=== PATIENT | female | born 1935 | race Caucasian/White ===

== ENCOUNTER 2022-06-14 09:38 | Emergency (ER) | payer MEDICARE, SELFPAY ==
--- NOTE | ~2022-06-14 | XR_ITS ---
XR hip RT min 2V DATE: 06/14/2022 10:50 INDICATION: Right hip pain following a fall yesterday TECHNIQUE: AP, lateral and crosstable lateral views of right hip COMPARISON: None FINDINGS: There is degenerative spurring of the femoral head consistent with moderate osteoarthritis. No fracture or dislocation, avascular necrosis or bone destruction is detected. Levoscoliosis and multilevel degenerative disc disease of the lumbar spine. IMPRESSION: Moderate osteoarthritis of right hip joint No fracture or dislocation of the right hip is detected Reviewed, dictated and finalized at location A. [employer]
[2022-06-14 10:09] VITALS: BP 106/58; PULSE 70; RESP 16; TEMP 36.4; O2SAT 98
--- NOTE | 2022-06-14 11:20 | ED.LOWEXIN ---
HPI - Extremity Injury (Lower) General Chief Complaint: Extremity Injury, Lower Stated Complaint: right hip pain Time Seen by Provider: 06/14/22 09:40 Source: patient Mode of arrival: ambulatory Limitations: no limitations History of Present Illness HPI Narrative: 86-year-old female presents to [facility] complaints of pain to her right hip after falling in her home last night; patient reports that she fell against a wall and hit her right hip against the wall and then slid down the wall falling on carpeted [place]. Patient denies hitting her head or loss of consciousness. Patient denies headache, dizziness, blurred vision, nausea, vomiting or diarrhea. Patient reports long history of frequent falls and her primary care provider is aware. Patient denies swelling, open wounds, erythema, MD complaint: hip injury Onset (ago): hour(s) (8) Injury: Right: hip Place: home Context: fall Other symptoms: none Related Data Home Medications Medication Instructions Recorded Confirmed amlodipine 10 mg tablet 10 mg PO DAILY 06/14/22 06/14/22 aspirin 81 mg tablet,delayed 81 mg PO DAILY 06/14/22 06/14/22 release citalopram 20 mg tablet 20 mg PO DAILY 06/14/22 06/14/22 enalapril maleate 20 mg tablet 20 mg PO DAILY 06/14/22 06/14/22 glipizide 5 mg tablet, extended 5 mg PO DAILY 06/14/22 06/14/22 release 24 hr insulin detemir U-100 100 unit/mL 20 unit subcut DAILY 06/14/22 06/14/22 subcutaneous solution (Levemir U-100 Insulin) metformin 1,000 mg tablet 1,000 mg PO DAILY 06/14/22 06/14/22 metoprolol succinate 50 mg 50 mg PO DAILY 06/14/22 06/14/22 tablet,extended release 24 hr omeprazole 40 mg capsule,delayed 40 mg PO DAILY 06/14/22 06/14/22 release pravastatin 40 mg tablet 40 mg PO DAILY 06/14/22 06/14/22 Allergies Allergy/AdvReac Type Severity Reaction Status Date / Time Penicillins Allergy Intermediate RASH Verified 06/14/22 11:14 Review of Systems Constitutional: Constitutional: Denies chills, Denies fatigue, Denies fever(s) and Denies weakness ENT: Denies vertigo and Denies dizziness Cardiovascular: Cardiovascular: Denies chest pain Respiratory: Respiratory: Denies cough, Denies dyspnea and Denies wheezing Gastrointestinal: Gastrointestinal: Denies diarrhea, Denies nausea and Denies vomiting Musculoskeletal: Comments: right hip pain Integumentary/Breasts: Skin/Breast: Denies rash Neurologic: Denies dizziness and Denies syncope PMFSH Comments At time of signature, I agree with nursing past medical, surgical, social and family history. There is no relevant family history pertinent to the presenting complaint. Exam Const: General: healthy appearing and no acute distress Nutritional Appearance: well nourished Orientation/consciousness: patient oriented x3 Limitations: no limitations Neck: Neck: normal visual inspection Resp: Effort & Inspection: normal respiratory effort and not labored Auscultation: clear to auscultation bilaterally, no crackles, no rales and no rhonchi Cardio: Rate: regular rate Rhythm: regular rhythm Heart sounds: no murmurs Skin: General skin exam: normal color Rashes: no rashes Wounds: no wounds Neuro: General: patient oriented x3 Speech: normal speech Gait exam (Neuro): Normal gait present Extrem: General: normal to inspection, no clubbing, cyanosis or edema and no pedal edema Other: no bruising, erythema or open wounds noted to right hip. Full range of motion noted to right hip. There is mild pain to right hip with constipation. Psych: Affect: normal affect Attitude: cooperative Course Course Level of Care: [facility] Visit Vital Signs Vital signs: Vital Signs Temperature 36.4 C L 06/14/22 10:09 Pulse Rate 70 06/14/22 10:09 Respiratory Rate 16 06/14/22 10:09 Blood Pressure 106/58 L 06/14/22 10:09 Pulse Oximetry 98 06/14/22 10:09 Oxygen Delivery Room Air 06/14/22 10:09 Temperature 36.4 C L 06/14/22 10:09 Pulse Rat
== END 2022-06-14 11:35 | disposition home or self-care (01) ==
PROVIDERS: Emergency Provider Nurse Practitioner Family
DX: M25.551 Pain in right hip (principal); Z79.82 Long term (current) use of aspirin; M16.11 Unilateral primary osteoarthritis, right hip; E78.00 Pure hypercholesterolemia, unspecified; I10 Essential (primary) hypertension; E11.9 Type 2 diabetes mellitus without complications; F41.9 Anxiety disorder, unspecified; F32.A Depression, unspecified
CPT/HCPCS: 73502; 99213; G0463

== ENCOUNTER 2022-11-28 09:29 | Emergency (ER) | payer MEDICARE, SELFPAY ==
[2022-11-28 09:44] VITALS: BP 103/58; PULSE 104; RESP 16; TEMP 37.3; O2SAT 98
--- NOTE | 2022-11-28 09:51 | ED.GENADULT ---
HPI - General Adult General Chief complaint: Headache Stated complaint: head pain Time Seen by Provider: 11/28/22 09:51 Source: patient Mode of arrival: ambulatory Limitations: no limitations History of Present Illness HPI narrative: 87-year-old female presents with complaint right-sided sinus pain for 1 week. Not taking any [id number] medications to treat her symptoms. Reports that pain is worse at night. States that she lives at home alone with no one to help her and was unsure what she should take. Afebrile. All systems reviewed and negative except as noted above. Related Data Home Medications Medication Instructions Recorded Confirmed amlodipine 10 mg tablet 10 mg PO DAILY 06/14/22 11/28/22 aspirin 81 mg tablet,delayed 81 mg PO DAILY 06/14/22 11/28/22 release citalopram 20 mg tablet 20 mg PO DAILY 06/14/22 11/28/22 enalapril maleate 20 mg tablet 20 mg PO DAILY 06/14/22 11/28/22 glipizide 5 mg tablet, extended 5 mg PO DAILY 06/14/22 11/28/22 release 24 hr insulin detemir U-100 100 unit/mL 20 unit subcut DAILY 06/14/22 11/28/22 subcutaneous solution (Levemir U-100 Insulin) metformin 1,000 mg tablet 1,000 mg PO DAILY 06/14/22 11/28/22 metoprolol succinate 50 mg 50 mg PO DAILY 06/14/22 11/28/22 tablet,extended release 24 hr omeprazole 40 mg capsule,delayed 40 mg PO DAILY 06/14/22 11/28/22 release pravastatin 40 mg tablet 40 mg PO DAILY 06/14/22 11/28/22 Allergies Allergy/AdvReac Type Severity Reaction Status Date / Time Penicillins Allergy Intermediate RASH Verified 11/28/22 09:45 Review of Systems Review of Systems: CONSTITUTIONAL: Denies fever, chills, or sweats. EYES: Denies visual changes, redness, or discharge. ENT: Reports rhinorrhea, congestion, sinus pain. Denies sore throat, or otalgia. CARDIOVASCULAR: Denies chest pain, palpitations, or edema. RESPIRATORY: Denies cough or dyspnea. GASTROINTESTINAL: Denies abdominal pain, nausea, vomiting, or diarrhea. GENITOURINARY: Denies dysuria or hematuria. SKIN: Denies rash or itching. MUSCULOSKELETAL: Denies back pain, joint pain, or myalgia. NEUROLOGIC: reports headache. Denies numbness, or weakness. PSYCHIATRIC: Denies anxiety or depression. All other systems reviewed are negative, except as documented in HPI. PMFSH Comments At time of signature, agree with nursing past medical, surgical, social and family history. There is no relevant family history pertinent to the presenting complaint. Exam Narrative: GENERAL: This is a well-nourished, well-developed patient, in no apparent distress. HEAD: normocephalic, atraumatic. EYES: PERRL. Sclera clear/white. Vision is grossly intact. EARS: External ears normal, right ear canal normal. foreign body to left ear canal. TMs normal without perforation. NOSE: External nose normal with Clear nasal drainage, erythema and swelling to both nares. Right-sided maxillary sinus tenderness. THROAT: Mucous membranes moist, Postnasal drainage noted. NECK: Neck supple, non-tender without lymphadenopathy, masses or thyromegaly. CARDIOVASCULAR: Regular rate and rhythm without murmurs, gallops, or rubs. RESPIRATORY: Clear to auscultation. Breath sounds equal bilaterally. No wheezes, rales, or rhonchi. SKIN: warm, Dry, intact with no suspicious lesions or rash, good texture and turgor. NEURO: awake, alert, and oriented to person, place and time. There were no obvious focal neurologic abnormalities. EXTREMITIES: No joint tenderness, effusion, or edema noted. Course Course Level of Care: [facility] Care Visit Vital Signs Vital signs: Vital Signs Temperature 37.3 C 11/28/22 09:44 Pulse Rate 104 H 11/28/22 09:44 Respiratory Rate 16 11/28/22 09:44 Blood Pressure 103/58 L 11/28/22 09:44 Pulse Oximetry 98 11/28/22 09:44 Oxygen Delivery Room Air 11/28/22 09:44 Temperature 37.3 C 11/28/22 09:44 Pulse Rate 104 H 11/28/22 09:44 Respiratory Rate 16 07/
== END 2022-11-28 10:12 | disposition home or self-care (01) ==
PROVIDERS: Emergency Provider Nurse Practitioner Family
DX: T16.2XXA Foreign body in left ear, initial encounter (principal); J32.0 Chronic maxillary sinusitis; Z79.82 Long term (current) use of aspirin; E78.00 Pure hypercholesterolemia, unspecified; I10 Essential (primary) hypertension; M19.90 Unspecified osteoarthritis, unspecified site; E11.9 Type 2 diabetes mellitus without complications; Z79.4 Long term (current) use of insulin; Z79.84 Long term (current) use of oral hypoglycemic drugs; F41.9 Anxiety disorder, unspecified; F32.A Depression, unspecified
CPT/HCPCS: 69200; 99213; G0463

== ENCOUNTER 2022-12-06 08:34 | Emergency (ER) | payer MEDICARE, SELFPAY ==
[2022-12-06 08:57] VITALS: BP 95/47; PULSE 81; RESP 12; TEMP 37.6; O2SAT 100
--- NOTE | 2022-12-06 09:15 | ED.URI ---
HPI - URI/Sore Throat General Chief Complaint: Upper Respiratory Infection Stated Complaint: Sinus Time Seen by Provider: 12/06/22 08:38 Source: patient Mode of arrival: ambulatory Limitations: no limitations History of Present Illness HPI Narrative: 87-year-old female presents to [facility] with complaints of 2 week history of right-sided sinus pressure, nasal congestion and runny nose. Patient was evaluated here on November 28, diagnosed with a sinus infection and was treated with 7 days of doxycycline, Medrol Dosepak, Claritin and Flonase at that time. Patient reports that she does not have a primary care provider to follow up with. Patient reports that her symptoms slightly improved but she continues with a right-sided sinus pain. Patient denies headache, fevers, nausea, vomiting or diarrhea. MD elicited complaint: rhinorrhea, nasal congestion and sinus pain Onset (ago): week(s) (2) Able to tolerate fluids by mouth: Yes Exacerbating factors: nothing Treatments prior to arrival: antibiotics Related Data Home Medications Medication Instructions Recorded Confirmed amlodipine 10 mg tablet 10 mg PO DAILY 06/14/22 11/28/22 aspirin 81 mg tablet,delayed 81 mg PO DAILY 06/14/22 11/28/22 release citalopram 20 mg tablet 20 mg PO DAILY 06/14/22 11/28/22 enalapril maleate 20 mg tablet 20 mg PO DAILY 06/14/22 11/28/22 glipizide 5 mg tablet, extended 5 mg PO DAILY 06/14/22 11/28/22 release 24 hr insulin detemir U-100 100 unit/mL 20 unit subcut DAILY 06/14/22 11/28/22 subcutaneous solution (Levemir U-100 Insulin) metformin 1,000 mg tablet 1,000 mg PO DAILY 06/14/22 11/28/22 metoprolol succinate 50 mg 50 mg PO DAILY 06/14/22 11/28/22 tablet,extended release 24 hr omeprazole 40 mg capsule,delayed 40 mg PO DAILY 06/14/22 11/28/22 release pravastatin 40 mg tablet 40 mg PO DAILY 06/14/22 11/28/22 Allergies Allergy/AdvReac Type Severity Reaction Status Date / Time Penicillins Allergy Intermediate RASH Verified 12/06/22 09:00 Review of Systems Constitutional: Constitutional: Denies chills, Denies fatigue, Denies fever(s) and Denies weakness ENT: Denies vertigo, Denies dizziness, Denies epistaxis, Reports nasal congestion and Denies sore throat Comments: Right-sided sinus pressure Respiratory: Respiratory: Denies cough, Denies dyspnea and Denies wheezing Gastrointestinal: Gastrointestinal: Denies diarrhea, Denies nausea and Denies vomiting Integumentary/Breasts: Skin/Breast: Denies rash Neurologic: Denies syncope and Denies headache(s) [facility] Comments At time of signature, I agree with nursing past medical, surgical, social and family history. There is no relevant family history pertinent to the presenting complaint. Exam Const: General: healthy appearing Nutritional Appearance: thin Orientation/consciousness: patient oriented x3 Limitations: no limitations HENMT: Head: normal to inspection Ears: external ears normal and TM's normal bilaterally Face and sinus: sinus tenderness maxillary ( right-sided) Mouth: Yes Normal oral and palatal mucosa present and Yes moist mucous membranes Teeth and gingiva: dentition normal Throat: posterior oropharynx normal and uvula midline Other: mild right-sided nasal congestion noted Eyes: Conjunctivae: conjunctivae normal Neck: Neck: normal visual inspection Resp: Effort & Inspection: normal respiratory effort and not labored Auscultation: clear to auscultation bilaterally, no crackles, no rales and no rhonchi Cardio: Rate: regular rate Rhythm: regular rhythm Heart sounds: no murmurs Skin: General skin exam: normal color Rashes: no rashes Neuro: General: patient oriented x3 Speech: normal speech Psych: Affect: normal affect Attitude: cooperative Course Course Level of Care: [facility] Care Visit Vital Signs Vital signs: Vital Signs Temperature 37.6 C 12/06/22 08:57 Pulse Rate 81 12/06/22 08:57 Respiratory Rate 12 12/06/22
[2022-12-06 09:24] VITALS: BP 112/64
== END 2022-12-06 09:45 | disposition home or self-care (01) ==
PROVIDERS: Emergency Provider Nurse Practitioner Family; PCP Internal Medicine
DX: J32.9 Chronic sinusitis, unspecified (principal); E78.00 Pure hypercholesterolemia, unspecified; M19.90 Unspecified osteoarthritis, unspecified site; E11.9 Type 2 diabetes mellitus without complications
CPT/HCPCS: 99213; G0463

== ENCOUNTER 2024-02-06 17:37 | Emergency (ER) | payer MEDICARE, SELFPAY ==
[2024-02-06 17:56] VITALS: BP 126/78; PULSE 80; RESP 16; TEMP 37.7; O2SAT 98
--- NOTE | 2024-02-06 18:06 | ED.EYEPROB ---
HPI - Eye Problem General Chief complaint: Eye Problems Stated complaint: right eye blurry Time Seen by Provider: 02/06/24 18:06 Source: patient, RN notes reviewed and old records reviewed Mode of arrival: ambulatory Limitations: no limitations History of Present Illness HPI Narrative: 88-year-old female presents to the [facility] with blurry vision and partial loss of vision of the right eye. States she went to bed last night and was fine. Tried driving this morning to go get [employer] and noticed that she was seeing double Patient has a history of cataract removal ?years ago. ? Onset (ago): hour(s) Related Data Allergies Allergy/AdvReac Type Severity Reaction Status Date / Time Penicillins Allergy Intermediate RASH Verified 02/06/24 17:41 Review of Systems Review of Systems: All systems reviewed & are unremarkable except as noted in HPI and below Constitutional: Constitutional: Reports no additional constitutional complaints Eyes: Eyes: Reports as per HPI, Reports blind spots, Reports blurry vision and Reports change in vision ENT: Reports system reviewed and no additional complaints, except as documented Cardiovascular: Cardiovascular: Reports no additional cardiovascular complaints, Denies chest pain and Denies dyspnea Respiratory: Respiratory: Reports no additional respiratory complaints, Denies chest congestion, Denies cough and Denies dyspnea Gastrointestinal: Gastrointestinal: Reports no additional gastrointestinal complaints, Denies abdominal pain, Denies nausea and Denies vomiting Musculoskeletal: Musculoskeletal: Reports no additional musculoskeletal complaints Integumentary/Breasts: Skin/Breast: Reports system reviewed and no additional complaints, except as docu Neurologic: Reports system reviewed and no additional complaints, except as documented Psychiatric: Psychiatric: Reports no additional psychiatric complaints Allergic/Immunologic: Allergic/Immunologic: Reports no additional allergic/immunologic complaints [facility] Past Medical History Medical History (Updated 02/06/24 @ 19:02 by Eva Walsh APRN) Depression DM2 (diabetes mellitus, type 2) HTN (hypertension) Hyperlipidemia Social History Social History Smoking status: Unknown if ever smoked Second hand tobacco smoke exposure: No Alcohol intake: never Substance use: never Lack of Transportation: YES Lack of Food: Sometimes True Current Housing: I Have Housing Concerned About Future Housing: No Difficulty Paying Gas/Electric Bills: YES Difficulty Paying for Meds: YES Currently Unemployed: No Education: Decline to Answer Difficulty w/ Childcare or Family Care: No Living arrangements: alone Occupation/Education: retired Gender identity (if verbalized by the patient): Female Comments At the time of my signature, I reviewed and agree with the nursing past medical, surgical, social, and family history. There is no relevant family history pertinent to the patient complaint. Exam Const: General: cooperative, no acute distress, well developed, alert, uncomfortable, well groomed and well nourished Nutritional Appearance: well nourished Orientation/consciousness: patient oriented x3 Limitations: no limitations HENMT: Head: normal to inspection Ears: hearing grossly normal bilaterally and external ears normal Face/Nose/Sinus: Normal external nose present, Normal nares present, Normal nasal mucous membranes and turbinates present, normal facial exam and face symmetric Face and sinus: normal facial exam and face symmetric Mouth: Yes lip normal Eyes: General: appearance normal, both eyes and all related structures Visual Levin: abnormal by confrontation other (Seeing double of everything) Alignment and Position: alignment normal Periorbital: periorbital findings normal Eyelids: eyelids normal Conjunctivae: conjunctivae normal Pupils: Other p
== END 2024-02-06 18:24 | disposition short-term general hospital (02) ==
LOC: EXPCOLL 17:43
PROVIDERS: Emergency Provider Nurse Practitioner
DX: H53.9 Unspecified visual disturbance (principal); E11.9 Type 2 diabetes mellitus without complications; I10 Essential (primary) hypertension; E78.5 Hyperlipidemia, unspecified
CPT/HCPCS: 99212; G0463

== ENCOUNTER 2024-05-19 08:08 | Outpatient (CLI) | payer MEDICARE, SELFPAY ==
--- NOTE | ~2024-05-19 | US_ITS ---
EXAMINATION: US carotid duplex BI DATE: 05/19/2024 08:50 INDICATION: Carotid bruit TECHNIQUE: Grayscale, color Doppler, and pulsed Doppler images of the cervical carotid arteries were obtained. The degree of vessel stenosis is placed in one of the following categories: normal, <50%, 5 0-69%, >=70% but less than near-occlusion, near-occlusion, or total occlusion. Note that percent sten osis relative to normal distal artery lumen diameter is indirectly measured from velocity measurement s as described by David, et al. Radiology 2003; [id number]. Notes: Normal: Peak systolic velocity <125 centimeters/sec and no plaque <50%. Peak systolic velocity <125 ( EDV <40; ICA/CCA PSV ratio <2.0; used these factors only a tandem lesions or low cardiac output or co ntralateral disease) 50-69 %: PSV 125-230 (EDV 40-100; ratio 2-4) >= 70% but less than near occlusion: PSV greater than 230 (EDV > 100; ratio> 4.0) Near Occlusion: PSV that is variable; markedly narrowed lumen Occlusion: Absent flow on color/spectral Doppler and no lumen on hollis scale. COMPARISON: None. FINDINGS: RIGHT: The right common carotid artery (CCA) peak systolic velocity (PSV) is 86 cm/s. The right internal car otid artery (ICA) PSV is 88 cm/s. The right ICA end-diastolic velocity (EDV) is 27 cm/s. The right IC A/CCA PSV ratio is 1.1. The external carotid artery (ECA) PSV is 77 cm/s. There is antegrade flow in the right vertebral artery. LEFT: The left CCA PSV is 80 cm/s. The left ICA PSV is 52 cm/s. The left ICA EDV is 16 cm/s. The left ICA/C CA PSV ratio is 0.8. The ECA PSV is 81 cm/s. There is antegrade flow in the left vertebral artery. IMPRESSION: 1. Less than 50% stenosis in the right internal carotid artery by sonographic criteria. 2. Less than 50% stenosis in the left internal carotid artery by sonographic criteria. Reviewed, dictated and finalized at location B. BULATORY NURSE IMPRESSION: 1. Less than 50% stenosis in the right internal carotid artery by sonographic monique nova. 2. Less than 50% stenosis in the left internal carotid artery by sonographic malik muñoz.
== END 2024-05-19 08:09 | disposition home or self-care (01) ==
PROVIDERS: PCP Nurse Practitioner Family; Visit Provider Nurse Practitioner Family
DX: R09.89 Other specified symptoms and signs involving the circulatory and respiratory systems (principal); I65.23 Occlusion and stenosis of bilateral carotid arteries
CPT/HCPCS: 93880

== ENCOUNTER 2024-09-25 10:02 | Outpatient (CLI) | payer MEDICARE, SELFPAY ==
[2024-09-25 10:42] LABS: Basophils Percent Auto 0.6 % (0.2-1.2); Eosinophils Absolute Auto 0.2 K/mm3 (0-0.3); Eosinophils Percent Auto 2.4 % (0-4.4); Hematocrit 31.1 % (37.0-47.0); Hemoglobin 9.6 g/dL (12.0-15.0); Immature Granulocyte Absolute 0.02 K/mm3 (0.00-0.031); Immature Granulocyte Percent A 0.3 % (0-0.5); Lymphocytes Absolute Auto 1.76 K/mm3 (0.9-3.2); Mean Corpuscular HGB Conc 30.9 g/dl (32-36); Mean Corpuscular Volume 87.6 fl (80-100); Mean Platelet Volume 9.7 fl (7.4-10.4); Monocytes Absolute Auto 0.5 K/mm3 (0.1-0.6); Monocytes Percent Auto 7.2 % (2.6-8.5); Neutrophils Absolute Auto 3.9 K/mm3 (1.3-6.7); Neutrophils Percent Auto 61.5 % (45.5-73.1); Platelet Count Result 338 k/mm3 (150-375); Red Blood Count 3.55 M/mm3 (4.2-5.4); Red Cell Distribution Width 15.3 % (11.5-14.5); White Blood Count 6.3 K/mm3 (4.5-10.0)
[2024-09-25 10:56] LABS: Hemoglobin A1C 6.7 % (<5.7)
[2024-09-25 11:01] LABS: Alanine Aminotransferase 15 U/L (6-35); Albumin Level 4.1 g/dL (3.5-5.1); Alkaline Phosphatase 68 U/L (38-126); Anion Gap 9 mmol/L (4-12); Aspartate Amino Transferase 25 U/L (14-36); Bilirubin,Total 0.4 mg/dL (0.2-1.3); Blood Urea Nitrogen 14 mg/dL (7-17); Calcium 9.6 mg/dL (8.4-10.2); Carbon Dioxide 24 mmol/L (22-30); Chloride 108 mmol/L (98-107); Cholesterol 188 mg/dL (0-200); Estimated Glomerular Filt Rate > 60; Glucose 142 mg/dL (65-110); HDL Direct 73 mg/dL; Potassium 3.8 mmol/L (3.4-5.0); Sodium 141 mmol/L (137-145); Triglycerides 113 mg/dL (<150)
[2024-09-25 11:08] LABS: LDL Cholesterol Direct 71 mg/dL
--- OUTSIDE RECORDS SUMMARY | 2024-09-25 11:19 | XMS_ITS | Clinical Summary ---
Author Organization [facility] [place] Address [address] [place] [address] Care Team Providers Care Engineer Specialist Name Role Phone Memo Montgomery MD Primary Care Prov ider Allergies Active Allergy Reactions Criticality Noted Date Comments Ciprofloxacin Unknown 01/20/2019 Penicillins Unknown 08/25/2017 unk Shrimp Other (See comments) Low 08/25/2017 Sulfa (Sulfonamide Antibiotics) Unknown 07/30 Medications sulfaSALAzine (AZULFIDINE) 500 mg tablet 11 9 Active pravastatin (PRAVACHOL) 40 mg tablet 0 9 Active metFORMIN (GLUCOPHAGE) 1,000 mg tablet 1 tablet (1,000 mg total) daily Active LEVEMIR U-100 INSULIN 100 unit/mL injection 0 9 Active aspirin 81 mg enteric coated tablet daily Active cefuroxime (CEFTIN) 250 mg tablet cefuroxime axetil 250 mg tablet Active celecoxib (CeleBREX) 200 mg capsule daily Active cholecalciferol (VITAMIN D-3) 2,000 unit capsule daily Active glipiZIDE XL (GLUCOTROL XL) 5 mg 24 hr tablet glipizide ER 5 mg tablet, extended release 24 hr Active metoprolol XL (TOPROL-XL) 50 mg 24 hr tablet metoprolol succinate ER 50 mg tablet,extended release 24 hr Active omeprazole (PriLOSEC) 40 mg capsule omeprazole 40 mg capsule,delayed release Active citalopram (CeleXA) 20 mg tablet Take 1 tablet (20 mg total) by mouth daily 4 Active amLODIPine (NORVASC) 10 mg tablet Take 1 tablet (10 mg total) by mouth daily 90 tablet 3 4 Active erythromycin (ILOTYCIN) ophthalmic ointment 4 Active ofloxacin (OCUFLOX) 0.3 % ophthalmic solution 4 Active prednisoLONE acetate (PRED FORTE) 1 % ophthalmic suspension SHAKE LIQUID AND INSTILL 1 DROP IN SURGICAL EYE THREE TIMES DAILY FOR 3 WEEKS. START AFTER SURGERY 4 Active promethazine (PHENERGAN) 25 mg tablet TAKE 1/2 TABLET BY MOUTH EVERY 6 HOURS NEEDED FOR NAUSEA Active polyethylene glycol (polyethylene glycol-electrol ytes) 236-22.74-6.74 -5.86 gram solution TAKE DIRECTED BY OFFICE Active enalapril (VASOTEC) 20 mg tablet Take 1 tablet (20 mg total) by mouth daily 90 tablet 1 4 03/02/20 Active Active Problems Problem Noted Date Diagnosed Date Aneurysm of ascending aorta without rupture 05/2023 Fall 09/29/2023 Upper respiratory tract infection 09/29/2023 Aortic aneurysm 09/29/2023 Coronary artery disease 09/29/2023 Hypertension 09/29/2023 Nonrheumatic aortic valve insufficiency 09/29/19 Mixed hyperlipidemia 09/29/2023 Obstructive sleep apnea 09/29/2023 Dyspnea on exertion 10/18/2020 Aortic root dilatation 11/22/2018 Coronary arteriosclerosis 11/22/2018 Aortic valve regurgitation 11/22/2018 Obstructive sleep apnea syndrome 11/22/2018 Chest pain 11/19/2018 Diabetes mellitus 11/19/2018 Essential hypertension 11/19/2018 Hyperlipidemia 11/19/2018 Medical History Medical History Date Comments Aortic aneurysm Hypertension Coronary artery disease Hyperlipidemia Heart valve disease Social History Tobacco Use Types Packs/Day Years Used Date Smoking Tobacco: Never Smokeless Tobacco: Never Tobacco Cessation:Counseling Given: Not Answered Personal Safety Answer Date Recorded Have you ever been in or are you currently in a harmful physical or emotional relationship or is someone making you feel afraid or unsafe? Denies 02/06/2024 Comments No Sex and Gender Information Value Date Recorded Sex Assigned at Not on file Legal Sex Female 6:01 PM VIDEO OPERATOR Gender Identity Not on file Sexual Orientation Not on file Obstetrics History Last Filed Vital Signs Vital Sign Reading Time Taken Comments Blood Pressure 150/78 03/01/2024 11:28 AM CDT Pulse 98 03/01/2024 11:28 AM CDT Temperature 37.5 C (99.5 F) 02/06/2024 7:06 PM CDT Respiratory Rate 17 02/06/2024 11:00 PM CDT Oxygen Saturation 98% 03/01/2024 11:28 AM CDT Inhaled Oxygen Concentration - - Weight 60.8 kg (134 lb) 03/01/2024 11:28 AM CDT Height 152.4 cm (5') 03/01/2024 11:28 AM CDT Body Mass Index 26.17 03/01/2024 11:28 AM CDT Plan of Treatment Health Maintenance Due Date Last Done Comments Depression Screening 1936 Fall Risk Assessment 1935 Dilated Eye Exam 1936 Foot Exam 1936 DTaP/Tdap/Td Vaccine (1 - Tdap) 10/16/1947 Hepatitis B Screening 1954 Well Visit 65+ 2001 Hemoglobin A1C 11/07/2023 05/08/2023, 11/29, 09/26/2022, Additional history exists Albumin Creatinine Ratio, Urine 05/08/2024 Lipid Panel 05/08/2024 05/08/2023, 08/30, 05/14/2022, Additional history exists Influenza Vaccine (Season Ended) 2025 01/24/2020, 02/10/2019, 02/15/2018, Additional history exists eGFR 02/05/2025 02/06/2024, 1201/2023, 12/19/2022, Additional history exists Pneumococcal vaccine 65+ Completed 018, 02/10/2018, 02/20/2016, Additional history exists Zoster Vaccine Completed 11/22/2018, 07/18/2018 Procedures Procedure Name Priority Date/Time Associated Diagnosis Comments EGFR STAT 02/06/2024 8:45 PM CDT HEMOGLOBIN A1C Routine 05/08/2023 8:18 AM VIDEO OPERATOR LIPID PANEL Routine 05/08/2023 8:18 AM VIDEO OPERATOR ALBUMIN CREATININE RATIO, URINE Routine 05/08/2023 8:11 AM VIDEO OPERATOR from Last 3 Months or Most Recently Relevant to Health Maintenance Results * (ABNORMAL) eGFR (02/06/2024 8:45 PM CDT) eGFR 57(L) >=60 mL/min/1. 73 m2 Comment: Interpretive Data Reference Interval Normal >/= 90 mL/min/1.73m2 Mildly decreased* 60 - 89 mL/min/1.73m2 Mildly to moderately decreased 45 - 59 mL/min/1.73m2 Moderately to severely decreased 30 - 44 mL/min/1.73m2 Severely decreased 15 - 29 mL/min/1.73m2 Kidney Failure < 15 mL/min/1.73m2 *Relative to young adult level Estimated glomerular filtration rate is determined by the 2020 CKD-EPI equation recommended by the National Kidney Foundation (A Unifying Approach to GFR Estimation: Recommendations of the NKF-ASK Task Force on Reassessing the Inclusion of Race in Diagnosing Kidney Disease, JASN 2020). The CKD-EPI equation should not be used for patients with unstable renal function and has not been validated in children and those over 70. Current interpretive data was last reviewed 2021. Blood 02/06/2024 8:45 PM CDT 02/06/2024 8:49 PM CDT us Tera FALCON LAB BLOOD ORDERABL ES Final Result [facility] [id number] [facility] Department [place] [address] * (ABNORMAL) Hemoglobin A1c (05/08/2023 8:18 AM VIDEO OPERATOR) Hgb A1C 6.1(H) 4.0 - 5.6 % [facility] Estimated Average Glucose 128 mg/dL [facility] Comment: The ADA recommends reporting an estimated Average Glucose (eAG) with all Hemoglobin A1c results using the equation derived from a study of 507 normal and diabetic adults. Minority populations were underrepresented and children were not included. (Diabetes Care 31:9046-2537, 2008). The eAG is not equivalent to a fasting glucose. Blood 05/08/2023 8:18 AM VIDEO OPERATOR 05/08/2023 9:05 AM VIDEO OPERATOR us Antoinette Ingram NP LAB BLOOD ORDERABLES Final Res ult [facility] [address] [facility] Department [place] [address] * Lipid panel (05/08/2023 8:18 AM VIDEO OPERATOR) Cholesterol 148 30 - 199 mg/dL [facility] Comment: Interpretive Data Ages < or = 19 years Acceptable: <170 mg/dL Borderline high: 170-199 mg/dL High: >or= 200 mg/dL Ages > or = 20 years Desirable: <200 mg/dL Borderline high: 200-239 mg/dL High: >or= 240 mg/dL Literature References: 1. Expert Panel on Integrated Guidelines for Cardiovascular Health and Risk Reduction in Children and Adolescents. Pediatrics 2011;128:S213 2. NCEP Expert Panel. Circulation 2004;110:227 Current Interpretive Data was last revised on 2018. Triglycerides 91 <=149 mg/dL [facility] Comment: Interpretive Data Ages < or = 9 years Acceptable: <75 mg/dL Borderline high: 75-99 mg/dL High: >or= 100 mg/dL Ages 10 to 20 years Acceptable: <90 mg/dL Borderline high: 90-129 mg/dL High: >or= 130 mg/dL Ages > or = 20 years Desirable: <150 mg/dL Borderline high: 150-199 mg/dL High: 200-499 mg/dL Very high: >or= 499 mg/dL Literature References: 1. Expert Panel on Integrated Guidelines for Cardiovascular Health and Risk Reduction in Children and Adolescents. Pediatrics 2011;128:S213 2. NCEP Expert Panel. Circulation 2004;110:227 Current Interpretive Data was last revised on 2018. HDL 70 >=40 mg/dL [facility] Comment: Interpretive Data Ages < or = 19 years Acceptable: >45 mg/dL Borderline low: 40-45 mg/dL Low: <40 mg/dL Ages > or = 20 years Desirable: >or= 60 mg/dL Low: <40 mg/dL Literature References: 1. Expert Panel on Integrated Guidelines for Cardiovascular Health and Risk Reduction in Children and Adolescents. Pediatrics 2011;128:S213 2. NCEP Expert Panel. Circulation 2004;110:227 Current Interpretive Data was last revised on 2018. LDL, calculated 60 <=129 mg/dL [facility] Comment: Interpretive Data Ages < or = 19 years Acceptable: <110 mg/dL Borderline high: 110-129 mg/dL High: >or= 130 mg/dL Ages > or = 20 years Optimal: <100 mg/dL Near optimal: 100-129 mg/dL Borderline high: 130-159 mg/dL High: >160 mg/dL Literature References: 1. Expert Panel on Integrated Guidelines for Cardiovascular Health and Risk Reduction in Children and Adolescents. Pediatrics 2011;128:S213 2. NCEP Expert Panel. Circulation 2004;110:227 Current Interpretive Data was last revised on 2018. Non-HDL Cholesterol 78 mg/dL [facility] Comment: Interpretive Data Ages < or = 19 years Acceptable: <120 mg/dL Borderline high: 120-144 mg/dL High: >145 mg/dL Ages > or = 20 years When triglycerides are >200 mg/dL, Non-HDL cholesterol is a secondary target of therapy with treatment goals that are 30 mg/dL greater than the LDL cholesterol target. Literature References: 1. Expert Panel on Integrated Guidelines for Cardiovascular Health and Risk Reduction in Children and Adolescents. Pediatrics 2011;128:S213 2. NCEP Expert Panel. Circulation 2004;110:227 Current Interpretive Data was last revised on 2018. Chol/HDL ratio 2 [facility] Blood 05/08/2023 8:18 AM VIDEO OPERATOR 05/08/2023 9:05 AM VIDEO OPERATOR us Antoinette Ingram SECRETARY OFFICE CLERK LAB BLOOD ORDERABLES Final Res ult [facility] [id number] [facility] Department [place] [address] * Albumin Creatinine Ratio, Urine (05/08/2023 8:11 AM VIDEO OPERATOR) Albumin Ur 16.7 mg/L [facility] Comment: Interpretive Data No reference range established. Current interpretive data was last revised 2018. Creatinine Ur 176.0 mg/dL [facility] Comment: Interpretive Data No reference range established. Current interpretive data was last revised 2018. Albumin Creatinine Ratio, Ur 9 1 - 29 mg/g [facility] Urine 05/08/2023 8:11 AM VIDEO OPERATOR 05/08/2023 11:09 AM VIDEO OPERATOR us Antoinette Ingram SECRETARY OFFICE CLERK LAB URINE ORDERABLES Final Res ult [facility] [address] [facility] Department [place] [address] from Last 3 Months or Most Recently Relevant to Health Maintenance Insurance MEDICARE [facility] MEDICARE [facility] MEDICARE [facility] Care Teams Engineer Specialist Relationship Specialty Start Date End Date Memo Montgomery MD [address] [place] [address] PCP - General Family Medicine 03/16/24
--- OUTSIDE RECORDS SUMMARY | 2024-09-25 11:19 | XMS_ITS | Clinical Summary ---
Author Organization [facility] Address [address] [place] [address] Care Team Providers Care Food And Beverage Manager Name Role Phone Unavailable Primary Care Provider Unavailabl e Source Comments [facility],non-owned Affiliates and Associated Physician Practices is amultiple site organization consisting of ambulatory clinics and hospital sitesin [place], [place], [place] and [place]. This disclosure is being madepursuant to the Care Everywhere program and may not contain all information available regarding this patient. Last updated 18.[facility] Social History Tobacco Use Types Packs/Day Years Used Date Smoking Tobacco: Never Assessed Comments Unknown Sex and Gender Information Value Date Recorded Sex Assigned at Not on file Legal Sex Female 6:17 AM STEVEDORING SUPERVISOR Gender Identity Not on file Sexual Orientation Not on file Plan of Treatment Health Maintenance Due Date Last Done Comments BONE DENSITY TESTING 1936 DTAP/TDAP/TD VACCINES (1 - Tdap) 10/16/1955 PNEUMOCOCCAL VACCINE 50+ (1 of 1 - PCV) 1986 ZOSTER VACCINE (1 of 2) 1986 Respiratory Syncytial Virus (RSV) Vaccine Pt: or over 60 yrs (1 - 1-dose 75+ series) 10/16/2011 COVID-19 VACCINE ( - 2023-2 5 season) 2024 DEPRESSION SCREENING 05/31/2024 INFLUENZA VACCINE (Season Ended) 2025 HEPATITIS B VACCINE Aged Out No longe r eligible based on patient's age to complete this topic HIB VACCINE Aged Out No longer eligi ble based on patient's age to complete this topic HPV VACCINE Aged Out No longer eligi ble based on patient's age to complete this topic MENINGOCOCCAL (Group B) VACC INE SHARED DECISION-MAKING Aged Out No longer eligibl e based on patient's age to complete this topic MENINGOCOCCAL GROUPS A/C/Y/W VACCINE Aged Out No longer eligible b ased on patient's age to complete this topic
--- OUTSIDE RECORDS SUMMARY | 2024-09-25 11:19 | XMS_ITS | Referral Summary ---
Author Organization [facility] Address [address] [place] [address] Care Team Providers Care Roof Cement And Paint Maker Name Role Phone Memo Montgomery MD Primary [...] mellitus 11/19/2018 Essential hypertension 11/19/2018 Hyperlipidemia 11/19/2018 Social History Tobacco Use Types Packs/Day Years [...] on file Legal Sex Female 6:01 PM DAIRY FEED SALES CONSULTANT Gender Identity Not on file Sexual Orientation Not on file Last Filed Vital Signs Vital Sign Reading [...] 03/01/2024 11:28 AM CDT Plan of Treatment Not on file Procedures Procedure Name Priority Date/Time Associated Diagnosis Comments EGFR STAT 02/06/2024 8:45 PM CDT HEMOGLOBIN A1C Routine 05/08/2023 8:18 AM DAIRY FEED SALES CONSULTANT LIPID PANEL Routine 05/08/2023 8:18 AM DAIRY FEED SALES CONSULTANT ALBUMIN CREATININE RATIO, URINE Routine 05/08/2023 8:11 AM DAIRY FEED SALES CONSULTANT from Last 3 Months or Most Recently [...] 8:45 PM CDT 02/06/2024 8:49 PM CDT Tera Sánchez PA LAB BLOOD ORDERABL ES Final Result Performing Organization Address [facility] de Phone Number [address] [address] * (ABNORMAL) Hemoglobin A1c (05/08/2023 8:18 AM DAIRY FEED SALES CONSULTANT) Hgb A1C 6.1(H) 4.0 - 5.6 % [facility] Estimated Average Glucose 128 mg/dL [facility] Comment: The ADA recommends reporting an estimated Average Glucose (eAG) with all Hemoglobin A1c results using the equation derived from a study of 507 normal and diabetic adults. Minority populations were underrepresented and children were not included. (Diabetes Care 31:6024-0546, 2007). The eAG is not equivalent to a fasting glucose. Blood 05/08/2023 8:18 AM DAIRY FEED SALES CONSULTANT 05/08/2023 9:05 AM DAIRY FEED SALES CONSULTANT Antoinette Ingram RECREATION OFFICER LAB BLOOD ORDERABLES Final Res ult Performing Organization Address [facility] Co de Phone Number [address] [address] * Lipid panel (05/08/2023 8:18 AM DAIRY FEED SALES CONSULTANT) Cholesterol 148 30 - 199 mg/dL [facility] Comment: Interpretive Data Ages < or = [...] on 2018. Triglycerides 91 <=149 mg/dL [facility] Comment: Interpretive Data Ages < or = [...] on 2018. HDL 70 >=40 mg/dL [facility] Comment: Interpretive Data Ages < or = [...] 2018. LDL, calculated 60 <=129 mg/dL [facility] Comment: Interpretive Data Ages < or = [...] on 2018. Non-HDL Cholesterol 78 mg/dL [facility] Comment: Interpretive Data Ages < or = [...] revised on 2018. Chol/HDL ratio 2 [facility] Blood 05/08/2023 8:18 AM DAIRY FEED SALES CONSULTANT 05/08/2023 9:05 AM DAIRY FEED SALES CONSULTANT Antoinette Ingram RECREATION OFFICER LAB BLOOD ORDERABLES Final Res ult Performing Organization Address [facility] de Phone Number [phone] [place] [address] * Albumin Creatinine Ratio, Urine (05/08/2023 8:11 AM DAIRY FEED SALES CONSULTANT) Albumin Ur 16.7 mg/L [facility] Comment: Interpretive Data No reference range established. Current interpretive data was last revised 2018. Creatinine Ur 176.0 mg/dL [facility] Comment: Interpretive Data No reference range established. Current interpretive data was last revised 2018. Albumin Creatinine Ratio, Ur 9 1 - 29 mg/g [facility] Urine 05/08/2023 8:11 AM DAIRY FEED SALES CONSULTANT 05/08/2023 11:09 AM DAIRY FEED SALES CONSULTANT Antoinette Ingram RECREATION OFFICER LAB URINE ORDERABLES Final Res ult Performing Organization Address [facility] Co de Phone Number [address] [place] [address] from Last 3 Months or Most Recently Relevant to Health Maintenance Insurance [facility]ICARE [facility] MEDICARE [facility] Care Teams Roof Cement And Paint Maker Relationship Specialty Start Date End Date Memo Montgomery MD [address] [place] [address] PCP - General Family Medicine 03/16/24
--- OUTSIDE RECORDS SUMMARY | 2024-09-25 11:19 | XMS_ITS | Clinical Summary ---
Author Organization [facility] Address [address] [place] [address] Care Team Providers Care Hospital Education Coordinator Name Role Phone Unavailable Primary Care Provider Unavailabl e Social History Tobacco Use Types Packs/Day Years Used Date Smoking Tobacco: Never Assessed Comments Unknown Sex and Gender Information Value Date Recorded Sex Assigned at Not on file Legal Sex Female 8:07 PM CDT Gender Identity Not on file Sexual Orientation Not on file Plan of Treatment Health Maintenance Due Date Last Done Comments DTaP, Tdap and Td Vaccines ( 1 - Tdap) 10[birth year]16/1954 Pneumococcal Vaccine: 50+ Ye ars (1 of 1 - PCV) 1986 Zoster Vaccines (1 of 2) 1986 RSV Immunization or 60+ Years (1 - 1-dose 75+ series) 10/16/2011 COVID-19 Vaccine (2023-2 5 season) 2024 Meningococcal B Vaccine Aged Out No l onger eligible based on patient's age to complete this topic Meningococcal Vaccine Aged Out No philomena jeff eligible based on patient's age to complete this topic RSV Immunizations Under 20 Months Aged Out No longer eligible based on patient's age to complete this topic
[2024-09-25 11:38] LABS: Thyroid Stimulating Hormone Reflex 0.673 uIU/mL (0.465-4.68)
== END 2024-09-25 10:03 | disposition home or self-care (01) ==
PROVIDERS: PCP Nurse Practitioner Family; Visit Provider Nurse Practitioner Family
DX: E11.9 Type 2 diabetes mellitus without complications (principal); E78.5 Hyperlipidemia, unspecified; I10 Essential (primary) hypertension; F32.A Depression, unspecified
CPT/HCPCS: 36415; 80053; 80061; 83036; 84443; 85025

== ENCOUNTER 2024-12-04 09:55 | Outpatient (CLI) | payer MEDICARE, SELFPAY ==
--- NOTE | ~2024-12-04 | XR_ITS ---
Right Shoulder Technique: AP and scapular Y views were obtained. Clinical History: Pain Findings: No fracture or dislocation is seen. There is severe degenerative change of glenohumeral garo nt with bony productive change and remodeling of the articular surface of the humeral head.. Soft tis sues are unremarkable. Impression: Severe glenohumeral joint degenerative change, as above. Reviewed, dictated and finalized at location M. Impression: Severe glenohumeral joint degenerative change, as above.
--- OUTSIDE RECORDS SUMMARY | 2024-12-04 10:03 | XMS_ITS | Referral Summary ---
Author Organization [facility] Address [address] [place] [address] Care Team Providers Care Psychiatric Security Nurse Name Role Phone Memo Montgomery MD Primary [...] on file Legal Sex Female 6:01 PM REWARDS CONSULTANT Gender Identity Not on file Sexual [...] CDT HEMOGLOBIN A1C Routine 05/08/2023 8:18 AM REWARDS CONSULTANT LIPID PANEL Routine 05/08/2023 8:18 AM REWARDS CONSULTANT ALBUMIN CREATININE RATIO, URINE Routine 05/08/2023 8:11 AM REWARDS CONSULTANT DEXA AXIAL SKELETON BONE DENSITY 1 OR MORE SITES Routine 09/10/2014 12:52 PM CDT from Last 3 Months or Most Recently [...] PM CDT 02/06/2024 8:49 PM CDT Tera FALCON LAB BLOOD ORDERABL ES Final Result Performing Organization Address [facility] Co de Phone Number [address] [address] * (ABNORMAL) Hemoglobin A1c (05/08/2023 8:18 AM REWARDS CONSULTANT) Hgb A1C 6.1(H) 4.0 - 5.6 % [facility] Estimated Average Glucose 128 mg/dL [facility] Comment: The ADA recommends reporting an estimated Average Glucose (eAG) with all Hemoglobin A1c results using the equation derived from a study of 507 normal and diabetic adults. Minority populations were underrepresented and children were not included. (Diabetes Care 31:9792-1901, 2008). The eAG is not equivalent to a fasting glucose. Blood 05/08/2023 8:18 AM REWARDS CONSULTANT 05/08/2023 9:05 AM REWARDS CONSULTANT Antoinette Ingram TELECOMMUNICATIONS SALES REPRESENTATIVE LAB BLOOD ORDERABLES Final Res ult Performing Organization Address [facility] Co de Phone Number [address] [place] [address] * Lipid panel (05/08/2023 8:18 AM REWARDS CONSULTANT) Cholesterol 148 30 - 199 mg/dL [...] ratio 2 [facility] Blood 05/08/2023 8:18 AM REWARDS CONSULTANT 05/08/2023 9:05 AM REWARDS CONSULTANT Antoinette Ingram TELECOMMUNICATIONS SALES REPRESENTATIVE LAB BLOOD ORDERABLES Final Res ult Performing Organization Address [facility] de Phone Number [address] [place] [address] * Albumin Creatinine Ratio, Urine (05/08/2023 8:11 AM REWARDS CONSULTANT) Albumin Ur 16.7 mg/L [facility] Comment: Interpretive Data No reference range established. Current interpretive data was last revised 2018. Creatinine Ur 176.0 mg/dL [facility] Comment: Interpretive Data No reference range established. Current interpretive data was last revised 2018. Albumin Creatinine Ratio, Ur 9 1 - 29 mg/g [facility] Urine 05/08/2023 8:11 AM REWARDS CONSULTANT 05/08/2023 11:09 AM REWARDS CONSULTANT us Antoinette Ingram NP LAB URINE ORDERABLES Final Res ult Performing Organization Address [facility] de Phone Number [address] [place] [address] * Dexa Axial Skeleton Bone Density 1 or 2 Site (09/10/2014 12:52 PM CDT) Anatomical Region Laterality Modality Body N/A Radiographic Jennifer ging 09/10/2014 12:5 2 PM CDT Impressions 09/10/2014 1:49 PM CDT 1. By WHO criteria, this patient has normal bone mineral density. 2. Since 2010, there has been a significant increase in bone mineral density in the lumbar spine (6.4%) and no significant change in bone mineral density of the left femoral neck (2.7%). THIS IS AN ELECTRONICALLY VERIFIED REPORT 09/10/2014 1:46 PM: Miky John M.D. Miky John M.D. [place]:pa 01:46 PM 01:46 PM [facility] [EOD] Narrative 09/10/2014 1:49 PM CDT EXAMINATION: Bone Density Study (DEXA) HISTORY: 78-year-old postmenopausal woman. COMPARISON: 01/29/2011 TECHNIQUE: Dual-energy X-ray absorptiometry of the lumbar spine and left femur was performed. FINDINGS: Lumbar spine (from L1 through L4): The bone mineral density is 1.202 gm / cm sq. The T score is 1.4. Left Femur Total: The bone mineral density is 1.06 gm / cm sq. The T score is 1. Left Femur Neck: The bone mineral density is 0.932 gm / cm sq. The T score is 0.7. Procedure Note Provider, MD Dameon - 10/16/2020 EXAMINATION: Bone Density Study (DEXA) HISTORY: 78-year-old postmenopausal woman. COMPARISON: 01/29/2011 TECHNIQUE: Dual-energy X-ray absorptiometry of the lumbar spine and leftfemur was performed. FINDINGS: Lumbar spine (from L1 through L4): The bone mineral density is 1.202 gm / cm sq. The T score is 1.4. Left Femur Total: The bone mineral density is 1.06 gm / cm sq. The T score is 1. Left Femur Neck: The bone mineral density is 0.932 gm / cm sq. The T score is 0.7. IMPRESSION: 1. By WHO criteria, this patient has normal bone mineral density. 2. Since 2010, there has been a significant increase in bone mineraldensity in the lumbar spine (6.4%) and no significant change in bone mineraldensity of the left femoral neck (2.7%). THIS IS AN ELECTRONICALLY VERIFIED REPORT 09/10/2014 1:46 PM: Miky John M.D. Miky John M.D. [place]:nh 01:46 PM 01:46 PM [facility] [EOD] Huy Kwong MD IMG DXA PROCEDURES Final Re sult from Last 3 Months or Most Recently Relevant to Health Maintenance Insurance MEDICARE [facility] MEDICARE BLUE [employer]OSS MEDICARE SUPPLEMENT MEDICARE [facility] Care Teams Psychiatric Security Nurse Relationship Specialty Start Date End Date Memo Montgomery MD [address] [place] [address] PCP - General Family Medicine 03/16/24
--- OUTSIDE RECORDS SUMMARY | 2024-12-04 10:03 | XMS_ITS | Clinical Summary ---
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/CONTROL TECHNICIAN Gender Identity Not on file Sexual Orientation [...] B Screening 1953 Well Visit 65+ 2001 Osteoporosis Screening-Bone Density Scan 09/10/2016 09/10/2014 Hemoglobin A1C 11/07/2023 05/08/2023, 11/29, 09/26/2022, Additional history exists Albumin Creatinine Ratio, Urine 05/08/2024 3 Lipid Panel 05/08/2024 05/08/2023, 08/30, 05/14/2022, Additional history exists Influenza Vaccine (Season Ended) 2025 01/24/2020, 02/10/2019, 02/15/2018, Additional history exists eGFR 02/05/2025 02/06/2024, 12/01/2023, 12/19/2022, Additional history exists Pneumococcal vaccine 65+ Completed 018, 02/10/2018, 02/20/2016, Additional history exists Zoster Vaccine Completed 11/22/2018, 07/18/2018 Procedures Procedure Name Priority Date/Time Associated Diagnosis Comments EGFR STAT 02/06/2024 8:45 PM CDT HEMOGLOBIN A1C Routine 05/08/2023 8:18 AM INSTRUMENT/CONTROL TECHNICIAN LIPID PANEL Routine 05/08/2023 8:18 AM INSTRUMENT/CONTROL TECHNICIAN ALBUMIN CREATININE RATIO, URINE Routine 05/08/2023 8:11 AM INSTRUMENT/CONTROL TECHNICIAN DEXA AXIAL SKELETON BONE DENSITY 1 OR [...] of Race in Diagnosing Kidney Disease, JASN 202). The CKD-EPI equation should not be used for patients with unstable renal function and has not been validated in children and those over 70. Current interpretive data was last reviewed 2021. Blood 02/06/2024 8:45 PM CDT 02/06/2024 8:49 PM CDT us Tera FALCON LAB BLOOD ORDERABL ES Final Result VENICE DEMPSEY [address] [facility] [place] [address] * (ABNORMAL) Hemoglobin A1c (05/08/2023 8:18 AM INSTRUMENT/CONTROL TECHNICIAN) Hgb A1C 6.1(H) 4.0 - 5.6 % VENICE DEMPSEY Estimated Average Glucose 128 mg/dL VENICE DEMPSEY Comment: The ADA recommends reporting an estimated Average Glucose (eAG) with all Hemoglobin A1c results using the equation derived from a study of 507 normal and diabetic adults. Minority populations were underrepresented and children were not included. (Diabetes Care 31:0576-0044, 2008). The eAG is not equivalent to a fasting glucose. Blood 05/08/2023 8:18 AM INSTRUMENT/CONTROL TECHNICIAN 05/08/2023 9:05 AM INSTRUMENT/CONTROL TECHNICIAN us Antoinette Ingram TOSSER LAB BLOOD ORDERABLES Final Res ult VENICE [address] [facility] Department [place] [address] * Lipid panel (05/08/2023 8:18 AM INSTRUMENT/CONTROL TECHNICIAN) Cholesterol 148 30 - 199 mg/dL VENICE [...] 2 VENICE DEMPSEY Blood 05/08/2023 8:18 AM INSTRUMENT/CONTROL TECHNICIAN 05/08/2023 9:05 AM INSTRUMENT/CONTROL TECHNICIAN us Antoinette Ingram NP LAB BLOOD ORDERABLES Final Res ult VENICE DEMPSEY [address] [facility] Department [place] [address] [phone] * Albumin Creatinine Ratio, Urine (05/08/2023 8:11 AM INSTRUMENT/CONTROL TECHNICIAN) Albumin Ur 16.7 mg/L VENICE Comment: Interpretive Data No reference range established. Current interpretive data was last revised 2018. Creatinine Ur 176.0 mg/dL VENICE Comment: Interpretive Data No reference range established. Current interpretive data was last revised 2018. Albumin Creatinine Ratio, Ur 9 1 - 29 mg/g VENICE Urine 05/08/2023 8:11 AM INSTRUMENT/CONTROL TECHNICIAN 05/08/2023 11:09 AM INSTRUMENT/CONTROL TECHNICIAN us Antoinette Ingram TOSSER LAB URINE ORDERABLES Final Res ult VENICE [address] [facility] Department [place] [address] * Dexa Axial Skeleton Bone Density 1 [...] PM: Miky John M.D. Miky John M.D. NH:coy 01:46 PM 01:46 PM [facility] [EOD] Narrative 09/10/2014 1:49 PM CDT EXAMINATION: [...] PM: Miky John M.D. Miky John M.D. NH:mt 01:46 PM 01:[address] [facility] [EOD] us Huy Kwong MD IMG DXA PROCEDURES Final Re sult from Last 3 Months or Most Recently Relevant to Health Maintenance Insurance MEDICARE [facility] MEDICARE BLUE CROSS MEDICARE SUPPLEMENT MEDICARE [facility] Care Teams Utilities Service Investigator Relationship Specialty Start Date End Date Memo Montgomery MD [address] [place] [address] PCP - General Family Medicine 03/16/24
--- OUTSIDE RECORDS SUMMARY | 2024-12-04 10:03 | XMS_ITS | Clinical Summary ---
Author Organization [facility] Address [address] [place] [address] Care Team Providers Care Sales And Marketing Associate Name Role Phone Unavailable Primary Care Provider [...]
--- OUTSIDE RECORDS SUMMARY | 2024-12-04 10:03 | XMS_ITS | Clinical Summary ---
Author Organization [facility] [employer] Address [address] [place] [address] Care Team Providers Care Miner Operator Name Role Phone Unavailable Primary Care Provider Unavailabl e Source Comments [facility] [employer],non-owned Affiliates and Associated Physician Practices is amultiple site organization consisting of ambulatory clinics and hospital sitesin [place], [place], [place] and [place]. This disclosure is being madepursuant to the Care Everywhere program and may not contain all information available regarding this patient. 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
[2024-12-04 10:23] LABS: Hematocrit 30.1 % (37.0-47.0); Hemoglobin 9.3 g/dL (12.0-15.0); Immature Granulocyte Percent A 0.3 % (0-0.5); Lymphocytes Absolute Auto 2.11 K/mm3 (0.9-3.2); Mean Corpuscular HGB Conc 30.9 g/dl (32-36); Mean Corpuscular Hemoglobin 26.3 pg (26-34); Mean Corpuscular Volume 85.3 fl (80-100); Nucleated Red Blood Cells Absolute Auto 0.000 K/mm3 (0.0-0.012); Nucleated Red Blood Cells Perc 0.0 % (0.0-0.2); Platelet Count Result 328 k/mm3 (150-375); Red Blood Count 3.53 M/mm3 (4.2-5.4); White Blood Count 6.3 K/mm3 (4.5-10.0)
[2024-12-04 10:29] LABS: Alanine Aminotransferase 14 U/L (6-35); Albumin Level 3.9 g/dL (3.5-5.1); Alkaline Phosphatase 64 U/L (38-126); Anion Gap 9 mmol/L (4-12); Aspartate Amino Transferase 30 U/L (14-36); Bilirubin,Total 0.4 mg/dL (0.2-1.3); Blood Urea Nitrogen 15 mg/dL (7-17); Calcium 9.6 mg/dL (8.4-10.2); Carbon Dioxide 24 mmol/L (22-30); Chloride 106 mmol/L (98-107); Estimated Glomerular Filt Rate > 60; Glucose 150 mg/dL (65-110); Potassium 4.1 mmol/L (3.4-5.0); Sodium 139 mmol/L (137-145); Total Protein 7.1 g/dL (6.3-8.2)
[2024-12-04 10:42] LABS: Iron 55 ug/dL (37-170)
[2024-12-04 10:51] LABS: Percent Iron Saturation 15 % (20-50)
[2024-12-04 10:54] LABS: Hemoglobin A1C 7.1 % (<5.7)
[2024-12-04 11:14] LABS: Thyroid Stimulating Hormone Reflex 0.723 uIU/mL (0.465-4.68)
[2024-12-04 11:35] LABS: Vitamin B12 387.0 pg/mL (239-931)
== END 2024-12-04 09:56 | disposition home or self-care (01) ==
PROVIDERS: PCP Nurse Practitioner Family; Visit Provider Nurse Practitioner Family
DX: M19.011 Primary osteoarthritis, right shoulder (principal); D64.9 Anemia, unspecified; I10 Essential (primary) hypertension; E11.42 Type 2 diabetes mellitus with diabetic polyneuropathy; Z79.4 Long term (current) use of insulin; K51.90 Ulcerative colitis, unspecified, without complications; G62.9 Polyneuropathy, unspecified
CPT/HCPCS: 36415; 73030; 80053; 82607; 82746; 83036; 83540; 83550; 84443; 85025

== ENCOUNTER 2025-01-16 09:29 | Emergency (ER) | payer MEDICARE, SELFPAY ==
[2025-01-16] VITALS (22 sets, daily range): BP systolic 126–161; BP diastolic 69–84; PULSE 74–98; RESP 11–34; TEMP 36.6; O2SAT 97–100
--- NOTE | ~2025-01-16 | CT_ITS ---
EXAM: CT brain wo con - 01/16/2025 10:10 CDT History: 89 years old Female with weakness, falls COMPARISON: None available. PROCEDURE: CT of the head without contrast. Axial, sagittal and coronal reformatted planes were evaluated. Automatic exposure control was used for this study. FINDINGS: BRAIN PARENCHYMA: No acute hemorrhage. No mass effect or herniation. Singer-white matter differentiation is maintained. Mild to moderate chronic volume loss. Scattered hypodensities in subcortical and periventricular white matter, likely representing chronic microvascular ischemic changes in this age group. Atherosclerotic calcification of the intracranial vessels is noted. VENTRICLES/ EXTRA-AXIAL SPACES: No hydrocephalus or extra-axial fluid collection. EXTRACRANIAL STRUCTURES: No calvarial fracture. IMPRESSION: No evidence for acute intracranial hemorrhage or calvarial fracture. Reviewed, dictated and finalized at location A.
--- NOTE | ~2025-01-16 | CT_ITS ---
EXAMINATION: CTA chest PE abdomen pel DATE: 01/16/2025 11:58 CDT INDICATION: Chest pain. Shortness of breath. Abdominal pain. Vomiting TECHNIQUE: Computed tomographic angiography (CTA) of the chest was performed with 100 mL Omnipaque-350 intravenous contrast. The dose-length product was 383.62 mGy-cm. Maximum intensity projection 3D-reconstructions of the aorta and other arteries were constructed by the technologist on a separate workstation. COMPARISON: None. FINDINGS: Thyroid gland is heterogeneous. There is a 1.8 cm right thyroid nodule. A thyroid ultrasound is recommended. Heart is mildly enlarged. There are coronary artery calcifications. Indeterminant 2.5 cm low-density lesion in the spleen. A CT of the abdomen and pelvis with contrast is recommended for further assessment. The stomach is intrathoracic. There are a few bowel loops in the large hiatal hernia. The ascending thoracic aorta measures 4.1 cm. Moderate atherosclerotic disease in the thoracic aorta. No pulmonary embolism identified. Visualized tracheobronchial tree is patent. Evaluation is limited due to motion artifact. No pneumothorax. No pleural effusion. No pulmonary mass. There is a 1.8 cm calcified granuloma in the right middle lobe. There are a few small patchy opacities in the right middle lobe. Bones appear osteopenic. Multilevel degenerative change in the spine. Extensive degenerative change in the shoulders. Moderate amount of nonspecific material in the bilateral glenohumeral joints. Correlate clinically. IMPRESSION: 1. The study is limited due to motion artifact. 2. No pulmonary embolism identified within the limitations of this study. 3. No focal pulmonary consolidation. No pneumothorax. No pulmonary mass. 4. Large hiatal hernia with an intrathoracic stomach and bowel loops within the hernia sac. 5. Thyroid gland is heterogeneous. There is a 1.8 cm right thyroid nodule. A thyroid ultrasound is recommended. 6. Indeterminate 2.5 cm low-density lesion in the spleen. A CT of the abdomen and pelvis with and without contrast is recommended for further assessment. 7. The ascending thoracic aorta measures 4.1 cm. 8. There are a few small patchy opacities in the right middle lobe. 9. Extensive degenerative change in the shoulders. Moderate amount of nonspecific material in the bilateral glenohumeral joints. Correlate clinically. Reviewed, dictated and finalized at location A. IMPRESSION: 1. The study is limited due to motion artifact. 2. No pulmonary embolism identified within the limitations of this study. 3. No focal pulmonary consolidation. No pneumothorax. No pulmonary mass. 4. Large hiatal hernia with an intrathoracic stomach and bowel loops within the hernia sac. 5. Thyroid gland is heterogeneous. There is a 1.8 cm right thyroid nodule. A th yroid ultrasound is recommended. 6. Indeterminate 2.5 cm low-density lesion in the spleen. A CT of the abdomen a nd pelvis with and without contrast is recommended for further assessment. 7. The ascending thoracic aorta measures 4.1 cm. 8. There are a few small patchy opacities in the right middle lobe. 9. Extensive degenerative change in the shoulders. Moderate amount of nonspecif ic material in the bilateral glenohumeral joints. Correlate clinically.
--- NOTE | ~2025-01-16 | XR_ITS ---
EXAM/PROCEDURE: XR chest 2V - 01/16/2025 10:25 CDT HISTORY: 89 years old Female with CP MIDSTERNAL RECENT W/NOTED CONFUSION TECHNIQUE: Two view(s) of the chest. COMPARISON: None available. FINDINGS: LUNGS/ PLEURA: Consolidation in the left lung base. No pleural effusion or pneumothorax. 1.1 cm pulmonary nodule in the right lung base. HEART/ MEDIASTINUM: Heart appears normal in size. Atherosclerotic calcifications are seen in the aorta. BONES: Degenerative changes. OTHER: Visualized upper abdomen is unremarkable. IMPRESSION: 1. Left lung base consolidation. Findings can represent pneumonia in appropriate clinical settings. Short-term follow-up chest radiograph is recommended after appropriate clinical therapy to document stability and/or resolution. 2. 1.1 cm pulmonary nodule in the right lung base. Correlate with prior imaging otherwise nonemergent outpatient CT is recommended for evaluation. Reviewed, dictated and finalized at location A. IMPRESSION: 1. Left lung base consolidation. Findings can represent pneumonia in appropria te clinical settings. Short-term follow-up chest radiograph is recommended afte r appropriate clinical therapy to document stability and/or resolution. 2. 1.1 cm pulmonary nodule in the right lung base. Correlate with prior imagin g otherwise nonemergent outpatient CT is recommended for evaluation.
--- NOTE | 2025-01-16 09:32 | ECG_ITS ---
Test Date: 2025-01-16 09:37:12 Measurements Intervals Homer Rate: 87 P: 213 KS: 138 QRS: -11 QRSD: 78 T: 54 QT: 368 QTc: 444 Interpretive Statements SINUS RHYTHM BASELINE ARTIFACT- II, III, AVR, AVL, AVF, V1-V3 NORMAL ECG No previous ECG available for comparison Electronically Signed On 01-16-2025 10:41:12 CDT by Lewis Little D.O.
--- OUTSIDE RECORDS SUMMARY | 2025-01-16 09:47 | XMS_ITS | Clinical Summary ---
Author Organization [facility] Address [address] [place] [address] Care Team Providers Care Systems Analyst Developer Name Role Phone Unavailable Primary Care Provider [...]
--- OUTSIDE RECORDS SUMMARY | 2025-01-16 09:47 | XMS_ITS | Clinical Summary ---
Author Organization [facility] [place] Address [address] [place] [address] Care Team Providers Care Riveter Pneumatic Name Role Phone Memo Montgomery MD Primary [...] on file Legal Sex Female 6:01 PM SHAKE SAWYER Gender Identity Not on file Sexual Orientation [...] 08/30, 05/14/2022, Additional history exists Influenza Vaccine (#1) 2025 , 02/10/2019, 02/15/2018, Additional history exists eGFR 02/05/2025 02/06/2024, 12/0 01/2023, 12/19/2022, Additional history exists Pneumococcal vaccine 65+ Completed 018, 02/10/2018, 02/20/2016, Additional history exists Zoster Vaccine Completed 11/22/2018, 07/18/2018 Procedures Procedure Name Priority Date/Time Associated Diagnosis Comments EGFR STAT 02/06/2024 8:45 PM CDT HEMOGLOBIN A1C Routine 05/08/2023 8:18 AM SHAKE SAWYER LIPID PANEL Routine 05/08/2023 8:18 AM SHAKE SAWYER ALBUMIN CREATININE RATIO, URINE Routine 05/08/2023 8:11 AM SHAKE SAWYER DEXA AXIAL SKELETON BONE DENSITY 1 OR [...] BLOOD ORDERABL ES Final Result VENICE DEMPSEY [address] [facility] Department [place] [address] * (ABNORMAL) Hemoglobin A1c (05/08/2023 8:18 AM SHAKE SAWYER) Hgb A1C 6.1(H) 4.0 - 5.6 % VENICE DEMPSEY Estimated Average Glucose 128 mg/dL VENICE DEMPSEY Comment: The ADA recommends reporting an estimated Average Glucose (eAG) with all Hemoglobin A1c results using the equation derived from a study of 507 normal and diabetic adults. Minority populations were underrepresented and children were not included. (Diabetes Care 31:1418-8225, 2008). The eAG is not equivalent to a fasting glucose. Blood 05/08/2023 8:18 AM SHAKE SAWYER 05/08/2023 9:05 AM SHAKE SAWYER us Antoinette Ingram OIL PROCESSING TECHNICIAN LAB BLOOD ORDERABLES Final Res ult [facility] [address] [facility] Department of Laboratories [place], [place] [id number] * Lipid panel (05/08/2023 8:18 AM SHAKE SAWYER) Cholesterol 148 30 - 199 mg/dL VENICE [...] 2 VENICE DEMPSEY Blood 05/08/2023 8:18 AM SHAKE SAWYER 05/08/2023 9:05 AM SHAKE SAWYER us Antoinette Ingram NP LAB BLOOD ORDERABLES Final Res ult [facility]ENICE DEMPSEY [address] [facility] Department [place] [address] 205 * Albumin Creatinine Ratio, Urine (05/08/2023 8:11 AM SHAKE SAWYER) Albumin Ur 16.7 mg/L VENICE Comment: Interpretive Data No reference range established. Current interpretive data was last revised 2018. Creatinine Ur 176.0 mg/dL VENICE Comment: Interpretive Data No reference range established. Current interpretive data was last revised 2018. Albumin Creatinine Ratio, Ur 9 1 - 29 mg/g [facility] Urine 05/08/2023 8:11 AM SHAKE SAWYER 05/08/2023 11:09 AM SHAKE SAWYER us Antoinette Ingram OIL PROCESSING TECHNICIAN LAB URINE ORDERABLES Final Res ult [facility]ICE [address] [facility] Department [place] [address] * Dexa Axial Skeleton Bone Density 1 [...] PM: Miky John M.D. Miky John M.D. NH:wv 01:46 PM 01:46 PM [facility] [EOD] Narrative [...] PM: Miky John M.D. Miky John M.D. NH:wv 01:46 PM 01:46 PM [facility] [EOD] us Huy Kwong MD IMG DXA PROCEDURES Final Re sult from Last 3 Months or Most Recently Relevant to Health Maintenance Insurance MEDICARE [facility] MEDICARE BLUE CROSS MEDICARE SUPPLEMENT MEDICARE [facility] Care Teams Riveter Pneumatic Relationship Specialty Start Date End Date Memo Montgomery MD [address] [place] [address] PCP - General Family Medicine 03/16/24
--- OUTSIDE RECORDS SUMMARY | 2025-01-16 09:47 | XMS_ITS | Clinical Summary ---
Author Organization [facility] [employer] Address [address] [place] [address] Care Team Providers Care Apartment Maintenance Name Role Phone Unavailable Primary Care Provider Unavailabl e Source Comments [facility] [employer],non-owned Affiliates and Associated Physician Practices is amultiple site organization consisting of ambulatory clinics and hospital sitesin [place], [place], [place] and [place]. This disclosure is being madepursuant to the Care Everywhere program and may not contain all information available regarding this patient. 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
[2025-01-16 09:48] LABS: Hematocrit 32.3 % (37.0-47.0); Hemoglobin 10.5 g/dL (12.0-15.0); Immature Granulocyte Percent A 0.2 % (0-0.5); Lymphocytes Absolute Auto 1.27 K/mm3 (0.9-3.2); Mean Corpuscular HGB Conc 32.5 g/dl (32-36); Mean Corpuscular Hemoglobin 26.9 pg (26-34); Mean Corpuscular Volume 82.6 fl (80-100); Nucleated Red Blood Cells Absolute Auto 0.000 K/mm3 (0.0-0.012); Nucleated Red Blood Cells Perc 0.0 % (0.0-0.2); Platelet Count Result 272 k/mm3 (150-375); Red Blood Count 3.91 M/mm3 (4.2-5.4); White Blood Count 4.0 K/mm3 (4.5-10.0)
--- NOTE | 2025-01-16 09:57 | ED_ITS ---
HPI - Chest Pain General Chief Complaint: Chest Pain Stated Complaint: sob, cp Time Seen by Provider: 01/16/25 09:32 Source: patient Mode of arrival: ambulatory Limitations: other (poor historian) History of Present Illness HPI narrative: An 89-year-old female that presents to the emergency department for chest pain, shortness of breath. Ongoing over the last several days. Patient cannot really elaborate any further on her symptoms. Her labor cares for her. He reports she had some vomiting and has not been feeling well the last several days. Related Data Allergies Allergy/AdvReac Type Severity Reaction Status Date / Time Penicillins Allergy Intermediate RASH Verified 01/16/25 09:03 Review of Systems 2 Review of Systems: All systems reviewed & are unremarkable except as noted in HPI and below PMFSH Past Medical History Medical History Cataract BMI 21.0-21.9, adult DM2 (diabetes mellitus, type 2) Depression Hyperlipidemia HTN (hypertension) Surgical History Surgical History Hx of hysterectomy Hx of hemorrhoidectomy Family History Family History Father , TB Acute myocardial infarction Mother Breast cancer Sibling , Lung cancer No problems noted. 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 HEAD: Normocephalic, atraumatic. EYES: PERRLA and EOMI. ENT: Nares clear, no rhinorrhea or epistaxis. Mucous membranes moist. Oropharynx without tonsillar hypertrophy exudate or other lesions. Bilateral TMs pearly hollis non-bulging NECK: Supple. No adenopathy or masses. CHEST: Clear to auscultation. No respiratory distress. No wheezes rales or rhonchi HEART: Regular rate and rhythm. No murmur heard. Normal peripheral pulses. ABDOMEN: Soft, nontender, nondistended, normal active bowel sounds. EXTREMITIES: Normal range of motion. No edema. SKIN: Warm, dry, no rash. NEURO: No focal deficits. Alert and oriented x3. PSYCH: Normal mood and affect Course Course Emergency Course: patient was updated on her workup and recommendation for admission for further evaluation/management. she refuses to stay at this time Vital Signs Vital signs: Vital Signs Temperature 98 F 01/16/25 09:33 Pulse Rate 88 01/16/25 09:33 Respiratory Rate 17 01/16/25 09:33 Blood Pressure 161/80 H 01/16/25 09:33 Pulse Oximetry 100 01/16/25 09:33 Oxygen Delivery Room Air 01/16/25 09:33 Temperature 98 F 01/16/25 09:33 Pulse Rate 78 01/16/25 12:29 Respiratory Rate 16 01/16/25 12:29 Blood Pressure 149/84 H 01/16/25 12:29 Pulse Oximetry 100 01/16/25 12:29 Oxygen Delivery Room Air 01/16/25 09:33 MDM - Chest Pain MDM Narrative Medical decision making narrative: Patient presents to the emergency department for chest pain, shortness of breath. She is afebrile and nontoxic appearing. Her vitals are stable. Cbc without leukocytosis. Hemoglobin appears stable. Metabolic panel without concerning findings. BNP is not concerningly elevated for age. Influenza, RSV, COVID screens are negative. EKG without acute ST changes, baseline and 3 hour troponin are not elevated. CTA chest PE with abdomen and pelvis obtained. No PE. Large hiatal hernia. Opacities in the right middle lobe. Extensive degenerative changes. Thyroid nodule. Indeterminate lesion of spleen. Her heart score is 4. Patient was updated on her workup thus far recommendation for admission. She does not wish to stay in the hospital at this time. Differential Diagnosis Differential diagnosis: Likely stable angina, atypical chest pain, costochondritis, biliary colic and other (PE, pneumonia, GERD, esophagitis) Lab Data Attestation: I reviewed the patient's lab results. 01/16/25 09:39 01/16/25 09:39 Labs: Lab Results 01/16/25 01/16/25 01/16/25 Range/Units 09:39 09:39 10:03 WBC 4.0 L (4.5-10.0) K/mm3 RBC 3.91 L (4.2-5.4) M/mm3 Hgb 10.5 L (12.0-15.0) g/dL Hct 32.3 L (37.0-47.0) % MCV 82.6 (80-100) fl MCH 26.9 (26-34) pg MCHC 32.5 (32-36) g/dl RDW 16.1 H (11.5-14.5) % Plt Count 272 (150-375) k/mm3 MPV 9.1 (7.4-10.4) fl Immature Gran % (Auto) 0.2 (0-0.5) % Neut % (Auto) 48.4 (45.5-73.1) % Lymph % (Auto) 31.7 (18.3-44.2) % Carlton % (Auto) 18.5 H (2.6-8.5) % Eos % (Auto) 0.5 (0-4.4) % Baso % (Auto) 0.7 (0.2-1.2) % Lymph # (Auto) 1.27 (0.9-3.2) K/mm3 Carlton # (Auto) 0.7 H (0.1-0.6) K/mm3 Eos # (Auto) 0.0 (0-0.3) K/mm3 Baso # (Auto) 0.0 (0.0-0.1) K/mm3 Abs Immat Gran (auto) 0.01 (0.00-0.031) K/mm3 Absolute Neuts (auto) 1.9 (1.3-6.7) K/mm3 Absolute Nucleated RBC 0.000 (0.0-0.012) K/mm3 Nucleated RBC % 0.0 (0.0-0.2) % PT 13.4 (11.1-14.7) Seconds INR 1.0 APTT 24.6 (22.3-36.8) Seconds D-Dimer 2.57 H Cancelled (<0.48) ug/mL Sodium 135 L (137-145) mmol/L Potassium 4.3 (3.4-5.0) mmol/L Chloride 102 (98-107) mmol/L Carbon Dioxide 22 (22-30) mmol/L Anion Gap 11 (4-12) mmol/L BUN 20 H (7-17) mg/dL Creatinine 0.98 (0.7-1.0) mg/dL Estim Creat Clear Calc 28 ml/min Estimated GFR 54 L (59 - ) Glucose 138 H (65-110) mg/dL Calcium 9.6 (8.4-10.2) mg/dL Total Bilirubin 0.6 (0.2-1.3) mg/dL AST 36 (14-36) U/L ALT 17 (6-35) U/L Alkaline Phosphatase 68 (38-126) U/L Troponin I 0.032 (0.000-0.034) ng/mL NT-Pro-B Natriuret Pep 1500 H (19.9-100) pg/mL Total Protein 7.3 (6.3-8.2) g/dL Albumin 4.1 (3.5-5.1) g/dL Lipase 52 (23-300) U/L Influenza A (RT-PCR) Negative (Negative) Influenza B (RT-PCR) Negative (Negative) RSV (RT-PCR) Negative (Negative) SARS-CoV-2 RNA (RT-PCR) Negative (Negative) 01/16/25 Range/Units 12:28 WBC (4.5-10.0) K/mm3 RBC (4.2-5.4) M/mm3 Hgb (12.0-15.0) g/dL Hct (37.0-47.0) % MCV (80-100) fl MCH (26-34) pg MCHC (32-36) g/dl RDW (11.5-14.5) % Plt Count (150-375) k/mm3 MPV (7.4-10.4) fl Immature Gran % (Auto) (0-0.5) % Neut % (Auto) (45.5-73.1) % Lymph % (Auto) (18.3-44.2) % Carlton % (Auto) (2.6-8.5) % Eos % (Auto) (0-4.4) % Baso % (Auto) (0.2-1.2) % Lymph # (Auto) (0.9-3.2) K/mm3 Carlton # (Auto) (0.1-0.6) K/mm3 Eos # (Auto) (0-0.3) K/mm3 Baso # (Auto) (0.0-0.1) K/mm3 Abs Immat Gran (auto) (0.00-0.031) K/mm3 Absolute Neuts (auto) (1.3-6.7) K/mm3 Absolute Nucleated RBC (0.0-0.012) K/mm3 Nucleated RBC % (0.0-0.2) % PT (11.1-14.7) Seconds INR APTT (22.3-36.8) Seconds D-Dimer (<0.48) ug/mL Sodium (137-145) mmol/L Potassium (3.4-5.0) mmol/L Chloride (98-107) mmol/L Carbon Dioxide (22-30) mmol/L Anion Gap (4-12) mmol/L BUN (7-17) mg/dL Creatinine (0.7-1.0) mg/dL Estim Creat Clear Calc ml/min Estimated GFR (59 - ) Glucose (65-110) mg/dL Calcium (8.4-10.2) mg/dL Total Bilirubin (0.2-1.3) mg/dL AST (14-36) U/L ALT (6-35) U/L Alkaline Phosphatase (38-126) U/L Troponin I 0.029 (0.000-0.034) ng/mL NT-Pro-B Natriuret Pep (19.9-100) pg/mL Total Protein (6.3-8.2) g/dL Albumin (3.5-5.1) g/dL Lipase (23-300) U/L Influenza A (RT-PCR) (Negative) Influenza B (RT-PCR) (Negative) RSV (RT-PCR) (Negative) SARS-CoV-2 RNA (RT-PCR) (Negative) Imaging Data Radiologist's impression: ITS Impressions Chest X-Ray 01/16/25 10:41 IMPRESSION: 1. Left lung base consolidation. Findings can represent pneumonia in appropriate clinical settings. Short-term follow-up chest radiograph is recommended after appropriate clinical therapy to document stability and/or resolution. 2. 1.1 cm pulmonary nodule in the right lung base. Correlate with prior imaging otherwise nonemergent outpatient CT is recommended for evaluation. Head CT 01/16/25 10:45 IMPRESSION: No evidence for acute intracranial hemorrhage or calvarial fracture. Chest/Abdomen/Pelvis CTA 01/16/25 11:58 IMPRESSION: 1. The study is limited due to motion artifact. 2. No pulmonary embolism identified within the limitations of this study. 3. No focal pulmonary consolidation. No pneumothorax. No pulmonary mass. 4. Large hiatal hernia with an intrathoracic stomach and bowel loops within the hernia sac. 5. Thyroid gland is heterogeneous. There is a 1.8 cm right thyroid nodule. A thyroid ultrasound is recommended. 6. Indeterminate 2.5 cm low-density lesion in the spleen. A CT of the abdomen and pelvis with and without contrast is recommended for further assessment. 7. The ascending thoracic aorta measures 4.1 cm. 8. There are a few small patchy opacities in the right middle lobe. 9. Extensive degenerative change in the shoulders. Moderate amount of nonspecific material in the bilateral glenohumeral joints. Correlate clinically. ECG Data EKG #1: ECG completion date: 01/16/25 EKG Interpretation: normal rate, sinus rhythm, no ST changes and normal QT Critical Care Time Critical Care Time Critical Care Time: No Discharge Plan Discharge Clinical Impression: Hernia, hiatal, Thyroid nodule, Splenic lesion Chest pain Qualifiers: Chest pain type: unspecified Qualified Code(s): R07.9 - Chest pain, unspecified Pneumonia Qualifiers: Pneumonia type: due to unspecified organism Laterality: right Lung location: m iddle lobe of lung Qualified Code(s): J18.9 - Pneumonia, unspecified organism Patient Disposition: Home Condition: Guarded Prognosis Instructions: Antibiotic Form, Chest Pain (ED), Hiatal Hernia (ED), Community Acquired Pneumonia (ED) Additional Instructions: Return to the emergency department if you experience fever, chest pain, shortness of breath, abdominal pain with nausea and vomiting, weakness, numbness, or any other symptoms that are concerning to you. Take oral antibiotics as prescribed. Continue Omeprazole as prescribed Follow up with your primary care doctor Patient Language: Turkish Prescriptions: New doxycycline hyclate 100 mg tablet 100 mg PO BID 5 Days Qty: 10 0RF cefdinir 300 mg capsule 300 mg PO Q12H 5 Days Qty: 10 0RF No Action polyethylene glycol 3350 [Miralax] 17 gram/dose powder 8.5 g PO DAILY Qty: 238 0RF bupropion HCl 150 mg tablet extended release 24 hr See Rx Instructions .ROUTE .COMPLEX Qty: 90 3RF Dose Instruction: TAKE 1 TABLET BY MOUTH EVERY MORNING Rx Instructions: TAKE 1 TABLET BY MOUTH EVERY MORNING citalopram 20 mg tablet 20 mg PO DAILY Qty: 90 3RF metformin 1,000 mg tablet See Rx Instructions .ROUTE .COMPLEX Qty: 90 3RF Dose Instruction: TAKE 1 TABLET BY MOUTH DAILY Rx Instructions: TAKE 1 TABLET BY MOUTH DAILY metoprolol succinate 50 mg tablet extended release 24 hr 50 mg PO DAILY Qty: 90 3RF omeprazole 40 mg capsule,delayed release(DR/EC) See Rx Instructions .ROUTE .COMPLEX Qty: 90 3RF Dose Instruction: TAKE 1 CAPSULE BY MOUTH DAILY Rx Instructions: TAKE 1 CAPSULE BY MOUTH DAILY ferrous sulfate 325 mg (65 mg iron) tablet,delayed release (DR/EC) 325 mg PO .every other day Qty: 90 0RF enalapril maleate 10 mg tablet 10 mg PO DAILY Qty: 30 2RF Follow-up/Referrals: Antoinette Ingram APRN [Primary Care Provider, Family Practice] Quality HEART score for chest pain patients History: slightly suspicious ECG: non specific repolarization disturbance/LBTB/PM Age: > or = to 65 years Risk factors: 1 or 2 risk factors Troponin: < or = to 1x normal limit Heart score: 4
[2025-01-16 10:01] LABS: INR 1.0; Partial Thromboplastin Time 24.6 Seconds (22.3-36.8); Prothrombin Time 13.4 Seconds (11.1-14.7)
[2025-01-16 10:07] LABS: Alanine Aminotransferase 17 U/L (6-35); Albumin Level 4.1 g/dL (3.5-5.1); Alkaline Phosphatase 68 U/L (38-126); Anion Gap 11 mmol/L (4-12); Aspartate Amino Transferase 36 U/L (14-36); Bilirubin,Total 0.6 mg/dL (0.2-1.3); Blood Urea Nitrogen 20 mg/dL (7-17); Calcium 9.6 mg/dL (8.4-10.2); Carbon Dioxide 22 mmol/L (22-30); Chloride 102 mmol/L (98-107); Estimated CRCL calculation 28 ml/min; Estimated Glomerular Filt Rate 54; Glucose 138 mg/dL (65-110); Lipase 52 U/L (23-300); Potassium 4.3 mmol/L (3.4-5.0); Sodium 135 mmol/L (137-145); Total Protein 7.3 g/dL (6.3-8.2)
[2025-01-16 10:18] LABS: Troponin I 0.032 ng/mL (0.000-0.034)
[2025-01-16 10:23] LABS: NT Pro B Type Natriuretic Pept 1500 pg/mL (19.9-100)
--- OUTSIDE RECORDS SUMMARY | 2025-01-16 10:33 | XMS_ITS | Clinical Summary ---
Author Organization [facility] Address [address] [place] [address] Care Team Providers Care Zoning Administrator Name Role Phone Unavailable Primary Care Provider Unavailabl e Source Comments [facility],non-owned Affiliates and Associated Physician Practices is amultiple site organization consisting of ambulatory clinics and hospital sitesin [place], [place] and [place]. This disclosure is being madepursuant to the Care Everywhere program and may not contain all information available regarding this patient. 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
--- OUTSIDE RECORDS SUMMARY | 2025-01-16 10:33 | XMS_ITS | Clinical Summary ---
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 Gender Identity Not on file Sexual [...] CDT HEMOGLOBIN A1C Routine 05/08/2023 8:18 AM MOTOR COACH OPERATOR LIPID PANEL Routine 05/08/2023 8:18 AM MOTOR COACH OPERATOR ALBUMIN CREATININE RATIO, URINE Routine 05/08/2023 8:11 AM MOTOR COACH OPERATOR DEXA AXIAL SKELETON BONE DENSITY 1 OR [...] BLOOD ORDERABL ES Final Result VENICE DEMPSEY [address] [facility] [place] [address] * (ABNORMAL) Hemoglobin A1c (05/08/2023 8:18 AM MOTOR COACH OPERATOR) Hgb A1C 6.1(H) 4.0 - 5.6 % VENICE DEMPSEY Estimated Average Glucose 128 mg/dL VENICE DEMPSEY Comment: The ADA recommends reporting an estimated Average Glucose (eAG) with all Hemoglobin A1c results using the equation derived from a study of 507 normal and diabetic adults. Minority populations were underrepresented and children were not included. (Diabetes Care 31:6669-0211, 2008). The eAG is not equivalent to a fasting glucose. Blood 05/08/2023 8:18 AM MOTOR COACH OPERATOR 05/08/2023 9:05 AM MOTOR COACH OPERATOR us Antoinette Ingram METEOROLOGY TEACHER LAB BLOOD ORDERABLES Final Res ult [facility]ENICE [address] [facility] Department of Laboratories [place], [place] [id number] * Lipid panel (05/08/2023 8:18 AM MOTOR COACH OPERATOR) Cholesterol 148 30 - 199 mg/dL [...] 2 VENICE DEMPSEY Blood 05/08/2023 8:18 AM MOTOR COACH OPERATOR 05/08/2023 9:05 AM MOTOR COACH OPERATOR us Antoinette Ingram NP LAB BLOOD ORDERABLES Final Res ult [facility]ENICE DEMPSEY [address] [facility] Department [place] [address] 079 * Albumin Creatinine Ratio, Urine (05/08/2023 8:11 AM MOTOR COACH OPERATOR) Albumin Ur 16.7 mg/L VENICE Comment: Interpretive Data No reference range established. Current interpretive data was last revised 2018. Creatinine Ur 176.0 mg/dL VENICE Comment: Interpretive Data No reference range established. Current interpretive data was last revised 2018. Albumin Creatinine Ratio, Ur 9 1 - 29 mg/g [facility] Urine 05/08/2023 8:11 AM MOTOR COACH OPERATOR 05/08/2023 11:09 AM MOTOR COACH OPERATOR us Antoinette Ingram METEOROLOGY TEACHER LAB URINE ORDERABLES Final Res ult [facility]ICE [address] [facility] [place] [address] * Dexa Axial Skeleton Bone Density 1 [...] John M.D. NH:wv 01:46 PM 01:46 PM [facility] [EOD] us Huy Kwong MD IMG DXA PROCEDURES Final Re sult from Last 3 Months or Most Recently Relevant to Health Maintenance Insurance MEDICARE [facility] MEDICARE BLUE CROSS MEDICARE SUPPLEMENT MEDICARE [facility] Care Teams Manager Commercial Relationship Specialty Start Date End Date Memo Montgomery MD [address] [place] [address] PCP - General Family Medicine 03/16/24
[2025-01-16 11:01] LABS: Influenza A QL RT-PCR Negative (Negative); Influenza B QL RT-PCR Negative (Negative); RSV RNA, RT-PCR Negative (Negative); SARS-CoV-2 RNA PCR Negative (Negative)
--- NOTE | 2025-01-16 12:30 | ECG_ITS ---
Test Date: 2025-01-16 12:27:27 Measurements Intervals [place] Rate: 78 P: 85 NH: 143 QRS: -16 QRSD: 114 T: 28 QT: 429 QTc: 489 Interpretive Statements SINUS RHYTHM INCOMPLETE RIGHT BUNDLE BRANCH BLOCK BORDERLINE ECG Compared to ECG 01/16/2025 09:37:12 Incomplete right bundle-branch block now present Electronically Signed On 01-16-2025 12:44:30 CDT by Lewis Little D.O.
[2025-01-16 13:06] LABS: Troponin I 0.029 ng/mL (0.000-0.034)
== END 2025-01-16 13:55 | disposition home or self-care (01) ==
PROVIDERS: Emergency Provider Physician Assistant; PCP Nurse Practitioner Family
DX: J18.9 Pneumonia, unspecified organism (principal); R07.9 Chest pain, unspecified; K44.9 Diaphragmatic hernia without obstruction or gangrene; D73.89 Other diseases of spleen; E04.1 Nontoxic single thyroid nodule; Z20.822 Contact with and (suspected) exposure to COVID-19; I10 Essential (primary) hypertension; E11.9 Type 2 diabetes mellitus without complications; E78.5 Hyperlipidemia, unspecified; F32.A Depression, unspecified; Z90.710 Acquired absence of both cervix and uterus; Z77.22 Contact with and (suspected) exposure to environmental tobacco smoke (acute) (chronic); I71.21 Aneurysm of the ascending aorta, without rupture; I45.10 Unspecified right bundle-branch block; Z79.84 Long term (current) use of oral hypoglycemic drugs; Z79.899 Other long term (current) drug therapy
CPT/HCPCS: 36415; 70450; 71046; 71275; 74177; 80053; 83690; 83880; 84484; 85025; 85380; 85610; 85730; 87637; 93005; 99284; Q9967

== ENCOUNTER 2025-03-01 08:55 | Outpatient (CLI) | payer MEDICARE, SELFPAY ==
--- NOTE | ~2025-03-01 | CT_ITS ---
Exam: CT abdomen and pelvis without contrast Clinical History: [Abnormal weight loss. ] Comparison: [ CTA chest 01/16/2025] Technique: Multiple axial CT images of the abdomen and pelvis were obtained without IV contrast. Sagittal and coronal reformatted images were obtained. FINDINGS: Lung bases: [The stomach is intrathoracic. There are coronary artery calcifications. ] Small opacities in the lower lungs. Liver: [ No mass.] [ No intrahepatic biliary duct dilatation.] Gallbladder: Surgically absent. Common bile duct: [ Normal caliber.] [ No stones.] Spleen: Indeterminant 2.5 cm low-density lesion in the spleen. There are a few cysts in the kidneys. There are a few too small to characterize low-attenuation lesions in the kidneys. Adrenal glands are unremarkable. Abdominal aorta is partially calcified. Pancreas: [ No mass. No pancreatic fluid collection.] Femoral fatty replaced. Adrenals: [ No masses.] Kidneys: [ No masses. No hydronephrosis.][ ] Lymph nodes: [ No adenopathy in the abdomen or pelvis.] Stomach, small bowel and colon: Moderate to large amount of stool. Short segment focal thickening of the bueno of the mid transverse colon. Peritoneum cavity: [ No mesenteric fat stranding or fluid.] Bladder: [ Unremarkable.] Osseous structures: [ No acute fracture lesion.] [ Multilevel degenerative change in the visualized spine.] Abdominal aorta: [ No aneurysm.] Additional findings: [ None of significance.] IMPRESSION: 1. Short segment focal thickening of the bueno of the mid transverse colon. Differential includes incomplete bowel wall distention, colitis or mass. A mass needs to be excluded. Consider direct visualization for further assessment. 2. Indeterminant 2.5 cm low-density lesion in the spleen. An ultrasound of the spleen is recommended for further assessment. 3. The stomach is intrathoracic. Reviewed, dictated and finalized at location Q. IMPRESSION: 1. Short segment focal thickening of the bueno of the mid transverse colon. Dif ferential includes incomplete bowel wall distention, colitis or mass. A mass ne eds to be excluded. Consider direct visualization for further assessment. 2. Indeterminant 2.5 cm low-density lesion in the spleen. An ultrasound of the spleen is recommended for further assessment. 3. The stomach is intrathoracic.
--- NOTE | ~2025-03-01 | US_ITS ---
EXAMINATION: US thyroid DATE: 03/01/2025 09:57 INDICATION: Nontoxic single thyroid nodule TECHNIQUE: Multiple ultrasound images of the thyroid were obtained. COMPARISON: None. FINDINGS: The right thyroid lobe measures 5.4 x 2.4 x 2.5 cm. The left thyroid lobe measures 3.3 x 1.8 x 1.3 cm. 2.6 cm nearly entirely solid hypoechoic nodule with smooth margins and without echogenic foci in the inferior right thyroid lobe (TI-RADS 4, moderately suspicious , FNA if >=1.5 cm, annual followup is >=1 cm). 1.1 cm solid isoechoic nodule with shadowing rim calcification and lobular margins at the inferior right thyroid (TI-RADS 5, highly suspicious , FNA if >=1.0 cm, annual followup is >0.5 cm). Finally there is an 8 mm solid hypoechoic TI RADS 4 nodule with central coarse shadowing calcifications and with smooth to ill-defined margins in the superior right thyroid. 5 mm TI RADS 1 entirely cys tic nodule in the left thyroid with echogenic focus likely representing inspissated colloid. IMPRESSION: 1. Multinodular goiter. Recommend ultrasound-guided fine-needle aspiration of the 2.6 cm TI RADS 4 and 1.1 cm TI RADS 5 right thyroid nodules. Reviewed, dictated and finalized at location A. IMPRESSION: 1. Multinodular goiter. Recommend ultrasound-guided fine-needle aspiration of t he 2.6 cm TI RADS 4 and 1.1 cm TI RADS 5 right thyroid nodules.
--- OUTSIDE RECORDS SUMMARY | 2025-03-01 09:13 | XMS_ITS | Clinical Summary ---
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 Gender Identity Not on file Sexual Orientation [...] CDT HEMOGLOBIN A1C Routine 05/08/2023 8:18 AM COLD ROLLING MACHINE SETTER LIPID PANEL Routine 05/08/2023 8:18 AM COLD ROLLING MACHINE SETTER ALBUMIN CREATININE RATIO, URINE Routine 05/08/2023 8:11 AM COLD ROLLING MACHINE SETTER DEXA AXIAL SKELETON BONE DENSITY 1 OR [...] BLOOD ORDERABL ES Final Result [facility]ENICE DEMPSEY [address] [facility] Department [place] [address] * (ABNORMAL) Hemoglobin A1c (05/08/2023 8:18 AM COLD ROLLING MACHINE SETTER) Hgb A1C 6.1(H) 4.0 - 5.6 % [facility]ENICE DEMPSEY Estimated Average Glucose 128 mg/dL VENICE DEMPSEY Comment: The ADA recommends reporting an estimated Average Glucose (eAG) with all Hemoglobin A1c results using the equation derived from a study of 507 normal and diabetic adults. Minority populations were underrepresented and children were not included. (Diabetes Care 31:2894-5920, 2008). The eAG is not equivalent to a fasting glucose. Blood 05/08/2023 8:18 AM COLD ROLLING MACHINE SETTER 05/08/2023 9:05 AM COLD ROLLING MACHINE SETTER us Antoinette Ingram CLAY MAKER LAB BLOOD ORDERABLES Final Res ult [facility]ENICE [address] [facility] Department of Laboratories [place], [place] [id number] * Lipid panel (05/08/2023 8:18 AM COLD ROLLING MACHINE SETTER) Cholesterol 148 30 - 199 mg/dL VENICE [...] 2 VENICE DEMPSEY Blood 05/08/2023 8:18 AM COLD ROLLING MACHINE SETTER 05/08/2023 9:05 AM COLD ROLLING MACHINE SETTER us Antoinette Ingram NP LAB BLOOD ORDERABLES Final Res ult [facility]ICE DEMPSEY [address] [facility] Department [place] [address]37 * Albumin Creatinine Ratio, Urine (05/08/2023 8:11 AM COLD ROLLING MACHINE SETTER) Albumin Ur 16.7 mg/L VENICE Comment: Interpretive Data No reference range established. Current interpretive data was last revised 2018. Creatinine Ur 176.0 mg/dL VENICE Comment: Interpretive Data No reference range established. Current interpretive data was last revised 2018. Albumin Creatinine Ratio, Ur 9 1 - 29 mg/g [facility] Urine 05/08/2023 8:11 AM COLD ROLLING MACHINE SETTER 05/08/2023 11:09 AM COLD ROLLING MACHINE SETTER us Antoinette Ingram CLAY MAKER LAB URINE ORDERABLES Final Res ult VENICE [address] [facility] Department [place] [address] * Dexa Axial Skeleton Bone Density 1 [...] PM: Miky John M.D. Miky John M.D. NH:in 01:46 PM 01:46 PM [facility] [EOD] Narrative [...] PM: Miky John M.D. Miky John M.D. NH:in 01:46 PM 01:46 PM [facility] [EOD] us Huy Kwong MD IMG DXA PROCEDURES Final Re sult from Last 3 Months or Most Recently Relevant to Health Maintenance Insurance MEDICARE [facility] MEDICARE BLUE CROSS MEDICARE SUPPLEMENT MEDICARE [facility] Care Teams Hydro Technician Relationship Specialty Start Date End Date Memo Montgomery MD PCP - General Family Medicine 03/16/24
--- OUTSIDE RECORDS SUMMARY | 2025-03-01 09:13 | XMS_ITS | Patient Health Record ---
Author Organization [facility] Address [address] [address] Care Team Providers Care Onion Topper Name Role Phone Zhen Kwongbbir Primary Care Provider Allergies Allergen (clinical drug ingredient) Drug/Non Drug Allergy documented on EMR Reaction Allergy Type Onset Date Status Ciprofloxacin Unknown Drug Allergy Act vikram penicillin V Penicillin V Potassium Unknown Drug Allergy Active Reason For Referral No Information Medications Medication SIG (Take, Route, Frequency, Duration) Notes Start Date End Date Status metFORMIN HCl 1000 MG TAKE 1 TABLET BY MOUTH DAILY WITH A MEAL; Duration: 90 Active Omeprazole 40 MG TAKE 1 CAPSULE BY MOUTH EVERY DAY; Duration: 90 Active glipiZIDE ER 5 MG TAKE 1 TABLET BY MOUTH EVERY DAY WITH BREAKFAST; Duration: 90 Active Requip 0.25 MG 1 tablet 1 to 3 hours before bedtime Orally Once a day; Duration: 30 day(s) 02/19/2017 Not-Taking Cefuroxime Axetil 250 MG 1 tablet Orally every 12 hrs; Duration: 5 days 04/25/2018 Not-Taking Citalopram Hydrobromide 20 MG TAKE 1 TABLET BY MOUTH EVERY DAY; Duration: 90 Active Bactrim DS 800-160 MG 1 tablet Orally Twice a day; Duration: 7 days 05/08/2016 Not-Taking Enalapril Maleate 10 MG Take 1 tablet by mouth once daily; Duration: 90 Active Calcium 600+D3 600-800 MG-UNIT 1 tablet Orally DAILY SHIMON- Not-Taking ReliOn Insulin Syringe 1ML/30G USE ONE SYRINGE EVERY DAY; Duration: 100 Active Enalapril Maleate 20 MG 1 tablet Orally Once a day; Duration: 90 Not-Taking Levemir 100 UNIT/ML ADMINISTER 20 UNITS UNDER THE SKIN EVERY DAY IN THE MORNING; Duration: 30 days Active Levemir 100UNIT 33 UNITS in AM Subcutaneous Daily Not-Taking Metoprolol Tartrate 50MG 1 tablet with f ood Orally daily; Duration: 90 days Active CeleBREX 200MG 1 capsule Orally PRN Not-Taking Pravastatin Sodium 40 MG TAKE 1 TABLET B Y MOUTH EVERY DAY; Duration: 90 Active Vasotec 5MG 1 tablet Orally Once a day SHIMON- 05/09/2012 Not-Taking Bactrim DS 800-160 MG 1 tablet Orally Twice a day; Duration: 7 days 06/02/2016 Not-Taking Cholecalciferol 1.25 MG (34763 UT) 1 tablet Orally Once a day Active sulfaSALAzine 500 MG 1 tablet Orally every 8 hrs Not-Taking Aspir-81 81 MG 1 tablet Orally Daily at bedtime Active FreeStyle Mally 14 Day [place] - as directed; Duration: 30 days Dx-E11.65 09/27/2020 Not-Taking Immunizations Vaccine Route Administration Date Status Comme nts FLUAD FLU QUADRIVALENT NO PRSV 0.5ML IM Intramuscular 02/10/2018 Administered [facility] Flu Vavccine lot#[id number] FLUAD FLU QUADRIVALENT NO PRSV 0.5ML IM Intramuscular 02/10/2019 Administered Patient had Flu Vaccine @ [facility] FLUAD FLU QUADRIVALENT NO PRSV 0.5ML IM Intramuscular 01/24/2020 Administered HIGH DOSE FLU VACCINE GIVEN @ [facility] LOT#[id number] [facility]#[id number] 5 FLUAD FLU QUADRIVALENT NO PRSV 0.5ML IM Intramuscular 02/28/2021 Administered Patient received High Dose Flu Vaccine @ [facility]#[id number] 5 Lot#[id number] FLUAD FLU QUADRIVALENT NO PRSV 0.5ML IM Intramuscular 03/05/2022 Administered HIGH DOSE FLU VACCINE Influenzal (split), seasonal, intermuscular,preserv ative free IM Intramuscular 02/19/2017 Administered Pneumococcal polysaccharide PPV23 Unknown 06/01/2014 Pending Pneumococcal polysaccharide PPV23 IM Intramuscular 02/10/2018 Administered Vaccine [facility] at [facility] Pneumococcal polysaccharide PPV23 IM Intramuscular 02/10/2022 Administered Zoster IM Intramuscular 07/18/2018 Administered Shingr ix Vaccine Given at [facility] Zoster IM Intramuscular 11/22/2018 Administered Shingr ix (shingles) vaccine given at [facility] Social History Tobacco Use: Social History Observation Description Date Details (start date - stop date) Never Smoker NA - NA Tobacco Use/Smoking Question Answer Notes Are you a nonsmoker Additional Findings: Tobacco Non-User Current no n-smoker Alcohol Screen (Audit-C) Question Answer Notes Did you have a drink containing alcohol in the p ast year? No Points 0 Interpretation Negative Tobacco use other than smoking: Question Answer Notes Are you an other tobacco user? No Problems Problem Type SNOMED Code ICD Code Onset Dates Problem Status W/U Status Risk Notes Problem Peripheral circulatory disorder associated with diabetes mellitus (491962161) Type 2 diabetes mellitus with other circulatory complications (E11.59) Active confirmed Problem Type 2 diabetes mellitus with other specified complication (E11.69) Active confirmed Problem Mixed hyperlipidemia (928103277) Mixed hyperlipidemia (E78.2) Active confirmed Problem Recurrent major depression in full remission (30514904) Major depressive disorder, recurrent, in full remission (F33.42) Active confirmed Problem COPD - Chronic obstructive pulmonary disease (88649154) COPD (chronic obstructive pulmonary disease) (J44.9) Active confirmed Problem Restless legs (23608568) RLS (restless legs syndrome) (G25.81) Active confirmed Problem Hemorrhage of rectum and anus (691598549) Rectal bleed (K62.5) Active confirmed Problem Anxiety (89609088) Anxiety (F41.9) Active confi rmed Problem Diabetes mellitus (86420807) Diabetes mellitus (E11.9) Active confirmed Problem Vitamin D deficiency (26738443) Vitamin D deficiency (E55.9) Active confirmed Problem Obstructive sleep apnea syndrome (51318748) ELISEO (obstructive sleep apnea) (G47.33) Active confirmed Problem Back pain (389369799) Back pain (M54.9) Active confirmed Problem Fall () Fall, initial encounter (W19.XXXA) Active confirmed Problem Atherosclerotic heart disease of [place] coronary artery without angina pectoris (756279981626780) Coronary artery disease involving mash[place] coronary artery of mash[place] heart without angina pectoris (I25.10) Active confirmed Problem Cardiomegaly (9021210) LVH (left ventricular hypertrophy) (I51.7) Active confirmed Problem Syncope (937911246) Syncope (R55) Active confir med Problem Anemia (886490306) Anemia, unspecified type (D64.9) Active confirmed Problem Microalbuminuria (621857139) Microalbuminuria (R80.9) Active confirmed Problem Weight loss (818641451) Weight loss (R63.4) Active confirmed Problem Depression (632408017) Depression (F32.9) Active confirmed Problem Thyroid nodule (028358954) Thyroid nodule (E04.1) Active confirmed Problem Microscopic hematuria (549569819) Microscopic hematuria (R31.29) Active confirmed Problem Neurologic disorder associated with type II diabetes mellitus (247231869) DM (diabetes mellitus) type II controlled, neurological manifestation (E11.49) Active confirmed Problem Ulcerative colitis (06268840) Ulcerative colitis (K51.90) Active confirmed Problem Pancreatic cyst (74930903) Pancreatic cyst (K86.2) Active confirmed Problem 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 Problem Adult health examination (002004494) Encounter for annual physical exam (Z00.00) Active confirmed Problem Recurrent major depression (disorder) (02579271) Major depressive disorder, recurrent episode, unspecified (F33.9) Active confirmed Problem Bleeding hemorrhoid (41362495) Bleeding hemorrhoid (K64.9) Active confirmed Problem Upper respiratory infection (67434248) Upper respiratory tract infection, unspecified type (J06.9) Active confirmed Problem Non-compliance (729052621) Non-compliance (Z91.199) Active confirmed Problem Aneurysm of ascending aorta (disorder) (947966417) Aneurysm of ascending aorta without rupture (I71.21) Active confirmed Problem Dilatation of aorta (45558544) Thoracic aortic ectasia (I77.810) Active confirmed Problem Essential hypertension (61618463) Essential hypertension (I10) Active confirmed Problem Esophageal reflux (612661823) Esophageal reflux (K21.9) Active confirmed Problem Benign neoplasm of colon (95597057) 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) Active confirmed Plan Of Treatment No Information Insurance Providers Payer Name Payer Address Payer Phone Subscriber Number Group Number Insured Name Patient Relationship to Insured Coverage Start Date Coverage End Date MEDICARE PART AB [address] [place] [id number] [phone] [id number] OMKAR YEUNG Self - patient is the insured 2 [facility] [employer] [address] [place], [place] [id number] OMKAR YEUNG Self - patient is the insured 1 Medical (General) History Medical History History ICD Code Hypertension(benign) Diabetes mellitus GERD(Gastroesophageal reflux disease) Hyperlipidemia Diarrhea Osteoarthritis Surgical History Surgery Date(Month/Year) Back Surgery ; Bladder Surgery ; Carpal Tunnel Surgery ; Gallbladder Removal ; Hysterectomy ; Hospitalization History Reason Date(Month/Year) see surgeries
--- OUTSIDE RECORDS SUMMARY | 2025-03-01 09:13 | XMS_ITS | Clinical Summary ---
Author Organization [facility] [employer] Address [address] [place] [address] Care Team Providers Care Exchange Operator Name Role Phone Unavailable Primary Care Provider Unavailabl e Source Comments [facility] [employer],non-owned Affiliates and Associated Physician Practices is amultiple site organization consisting of ambulatory clinics and hospital sitesin [place], [place], [place] and [place]. This disclosure is being madepursuant to the Care Everywhere program and may not contain all information available regarding this patient. 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
== END 2025-03-01 08:56 | disposition home or self-care (01) ==
PROVIDERS: PCP Nurse Practitioner Family; Visit Provider Nurse Practitioner Family
DX: E04.2 Nontoxic multinodular goiter (principal); R93.3 Abnormal findings on diagnostic imaging of other parts of digestive tract; D73.89 Other diseases of spleen; R63.4 Abnormal weight loss; K92.1 Melena; R15.9 Full incontinence of feces; D64.9 Anemia, unspecified; K46.9 Unspecified abdominal hernia without obstruction or gangrene
CPT/HCPCS: 74176; 76536

== ENCOUNTER 2025-03-14 12:51 | Outpatient (CLI) | payer MEDICARE, SELFPAY ==
--- NOTE | ~2025-03-14 | US_ITS ---
EXAMINATION: US FNA w image guidance, US FNA additional DATE: 03/14/2025 13:52 INDICATION: Nontoxic single thyroid nodule TECHNIQUE: A time-out was performed to verify the patient's name, date of , and procedure to be performed. The procedure and its benefits and risks were discussed with the patient. Risks specifically discussed included bleeding and infection. The patient understood the risks and agreed to proceed. The neck was prepped and draped in the usual sterile manner. 4 mL 1% lidocaine was used for local anesthesia. Attention was first turned to the smaller partially calcified nodule at the mid right thyroid. 5 passes were made with a 25G needle into the lesion. Appropriate needle location was documented with continuous sonographic guidance. Attention was then turned to the larger and more caudal right thyroid nodule. An additional 6 passes were made with a 20 5G needle into the lesion. Appropriate needle location was documented with continuous sonographic guidance. A sterile bandage was applied. There were no immediate complications. FINDINGS: Grayscale ultrasound images demonstrate biopsy needles advanced first into the 1.1 cm TI-RADS 5 partially rim calcified nodules at the medial mid right thyroid lobe. Subsequent images demonstrate additional biopsy needles advanced into the 2.6 cm TI RADS 4 solid mass at the inferior right thyroid lobe. IMPRESSION: 1. Successful ultrasound-guided fine needle aspiration of a 1.1 cm TI RADS 5 nodule at the mid right thyroid. 2. Successful ultrasound-guided fine needle aspiration of a 2.6 cm TI RADS 4 nodule at the inferior right thyroid. Reviewed, dictated and finalized at location A. IMPRESSION: 1. Successful ultrasound-guided fine needle aspiration of a 1.1 cm TI RADS 5 n odule at the mid right thyroid. 2. Successful ultrasound-guided fine needle aspiration of a 2.6 cm TI RADS 4 no dule at the inferior right thyroid.
--- NOTE | 2025-03-14 13:44 | CY_PTH ---
PATIENT: Herlinda Negrete LOC: [facility]G U#:[id number] AGE/SX: 89/F ROOM: RE03/14/[address]: Antoinette Ingram APRN : 1935 BED: DIS: 03/14/2025 SPEC #: [id number] RECD: 03/14/25 14:03 STATUS: JAYLEEN RE #: [id number] NATIVIDAD: 03/14/25 13:[address]: Antoinette Ingram DEPT: [facility] Cytology RECD BY: Keyla Pate Tissues: A - FNA Thyroid B - FNA Thyroid Procedures: Hematoxylin and Eosin Stain Cell Block Fine Needle Aspiration Evaluation Fna Additional Pass Fine Needle Aspiration Pathologist
--- OUTSIDE RECORDS SUMMARY | 2025-03-14 14:37 | XMS_ITS | Patient Health Record ---
Author Organization [facility] Address [address] [address] Care Team Providers Care Color Sprayer Name Role Phone Zhen Kwongbbir Primary Care [...] 7 days 06/02/2016 Not-Taking Cholecalciferol 1.25 MG (98840 UT) 1 tablet Orally Once a day Active sulfaSALAzine 500 MG 1 tablet Orally every 8 hrs Not-Taking Aspir-81 81 MG 1 tablet Orally Daily at bedtime Active FreeStyle Mally 14 Day [place] - as directed; Duration: 30 days Dx-E11.65 09/27/2020 Not-Taking Immunizations Vaccine Route Administration Date Status Comme [facility] Zoster IM Intramuscular 07/18/2018 Administered Shingr ix Vaccine Given at [facility] Zoster IM Intramuscular 11/22/2018 Administered Shingr ix (shingles) vaccine given at [facility] Pneumococcal polysaccharide PPV23 Unknown 06/01/2014 Pending Pneumococcal polysaccharide PPV23 IM Intramuscular 02/10/2018 Administered Vaccine gi regine at [facility] Pneumococcal polysaccharide PPV23 IM Intramuscular 02/10/2022 Administered Influenzal (split), seasonal, intermuscular,preserv ative free IM Intramuscular 02/19/2017 Administered FLUAD FLU QUADRIVALENT NO PRSV 0.5ML IM Intramuscular 02/10/2018 Administered [facility] Flu Vavccine lot#[id number] FLUAD FLU QUADRIVALENT NO PRSV 0.5ML IM Intramuscular 02/10/2019 Administered Patient had Flu Vaccine @ [facility] FLUAD FLU QUADRIVALENT NO PRSV 0.5ML IM Intramuscular 01/24/2020 Administered HIGH DOSE FLU VACCINE GIVEN @ [facility] LOT#[id number] [facility]#[id number] 5 FLUAD FLU QUADRIVALENT NO PRSV 0.5ML IM Intramuscular 02/28/2021 Administered Patient received High Dose Flu Vaccine @ [facility]#[id number] 5 Lot#[id number] FLUAD FLU QUADRIVALENT NO PRSV 0.5ML IM Intramuscular 03/05/2022 Administered HIGH DOSE FLU VACCINE Social History Tobacco Use: Social History Observation [...] Peripheral circulatory disorder associated with diabetes mellitus (284263702) Type 2 diabetes mellitus with other circulatory complications (E11.59) Active confirmed Problem Type 2 diabetes mellitus with other specified complication (E11.69) Active confirmed Problem Mixed hyperlipidemia (363391741) Mixed hyperlipidemia (E78.2) Active confirmed Problem Recurrent major depression in full remission (69314566) Major depressive disorder, recurrent, in full remission (F33.42) Active confirmed Problem COPD - Chronic obstructive pulmonary disease (69415740) COPD (chronic obstructive pulmonary disease) (J44.9) Active confirmed Problem Restless legs (21579473) RLS (restless legs syndrome) (G25.81) Active confirmed Problem Hemorrhage of rectum and anus (525693855) Rectal bleed (K62.5) Active confirmed Problem Anxiety (64058855) Anxiety (F41.9) Active confi rmed Problem Diabetes mellitus (64658074) Diabetes mellitus (E11.9) Active confirmed Problem Vitamin D deficiency (41021245) Vitamin D deficiency (E55.9) Active confirmed Problem Obstructive sleep apnea syndrome (16472008) ELISEO (obstructive sleep apnea) (G47.33) Active confirmed Problem Back pain (801483050) Back pain (M54.9) Active confirmed Problem Fall () Fall, initial encounter (W19.XXXA) Active confirmed Problem Atherosclerotic heart disease of [place] coronary artery without angina pectoris (665274250661570) Coronary artery disease involving [place] coronary artery of [place] heart without angina pectoris (I25.10) Active confirmed Problem Cardiomegaly (3484107) LVH (left ventricular hypertrophy) (I51.7) Active confirmed Problem Syncope (508807931) Syncope (R55) Active confir med Problem Anemia (305051732) Anemia, unspecified type (D64.9) Active confirmed Problem Microalbuminuria (221822031) Microalbuminuria (R80.9) Active confirmed Problem Weight loss (002191597) Weight loss (R63.4) Active confirmed Problem Depression (512253761) Depression (F32.9) Active confirmed Problem Thyroid nodule (222600735) Thyroid nodule (E04.1) Active confirmed Problem Microscopic hematuria (602352823) Microscopic hematuria (R31.29) Active confirmed Problem Neurologic disorder associated with type II diabetes mellitus (841377082) DM (diabetes mellitus) type II controlled, neurological manifestation (E11.49) Active confirmed Problem Ulcerative colitis (10266400) Ulcerative colitis (K51.90) Active confirmed Problem Pancreatic cyst (23980764) Pancreatic cyst (K86.2) Active confirmed Problem 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 Problem Adult health examination (296406883) Encounter for annual physical exam (Z00.00) Active confirmed Problem Recurrent major depression (disorder) (78081048) Major depressive disorder, recurrent episode, unspecified (F33.9) Active confirmed Problem Bleeding hemorrhoid (10424255) Bleeding hemorrhoid (K64.9) Active confirmed Problem Upper respiratory infection (43191182) Upper respiratory tract infection, unspecified type (J06.9) Active confirmed Problem Non-compliance (160457157) Non-compliance (Z91.199) Active confirmed Problem Aneurysm of ascending aorta (disorder) (276135747) Aneurysm of ascending aorta without rupture (I71.21) Active confirmed Problem Dilatation of aorta (41091459) Thoracic aortic ectasia (I77.810) Active confirmed Problem Essential hypertension (19575525) Essential hypertension (I10) Active confirmed Problem Esophageal reflux (109152869) Esophageal reflux (K21.9) Active confirmed Problem Benign neoplasm of colon (58416251) 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) Active confirmed Plan Of Treatment No Information Insurance Providers Payer Name Payer Address Payer Phone Subscriber Number Group Number Insured Name Patient Relationship to Insured Coverage Start Date Coverage End Date MEDICARE PART AB [address] [place] [phone] [id number] OMKAR YEUNG Self - patient is the insured 2 [facility] [employer] [address] [place], [place] [id number] OMKAR YEUNG Self - patient is the insured 1 Medical (General) History Medical History History ICD Code Hypertension(benign) Diabetes mellitus GERD(Gastroesophageal reflux disease) Hyperlipidemia Diarrhea Osteoarthritis Surgical History Surgery Date(Month/Year) Back Surgery ; Bladder Surgery ; Carpal Tunnel Surgery ; Gallbladder Removal ; Hysterectomy ; Hospitalization History Reason Date(Month/Year) see surgeries
--- OUTSIDE RECORDS SUMMARY | 2025-03-14 14:37 | XMS_ITS | Clinical Summary ---
Author Organization [facility] Address [address] [place] [address] Care Team Providers Care Poultry Farmer Name Role Phone Memo Montgomery MD Primary [...] by mouth daily 90 tablet 1 4 Active Active Problems Problem Noted Date Diagnosed Date Aneurysm of ascending aorta without rupture 05/2023 Fall 09/29/2023 Upper respiratory tract infection 09/29/2023 Aortic aneurysm 09/29/2023 Coronary artery disease 09/29/2023 Hypertension 09/29/2023 Nonrheumatic aortic valve insufficiency 09/29/19 24 Mixed hyperlipidemia 09/29/2023 Obstructive sleep apnea 09/29/2023 [...] on file Legal 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 Gender Identity Not on file Sexual Orientation [...] CDT HEMOGLOBIN A1C Routine 05/08/2023 8:18 AM GED PREPARATION TEACHER LIPID PANEL Routine 05/08/2023 8:18 AM GED PREPARATION TEACHER ALBUMIN CREATININE RATIO, URINE Routine 05/08/2023 8:11 AM GED PREPARATION TEACHER DEXA AXIAL SKELETON BONE DENSITY 1 OR [...] BLOOD ORDERABL ES Final Result [facility]ICE DEMPSEY [address] [facility] Department [place] [address] * (ABNORMAL) Hemoglobin A1c (05/08/2023 8:18 AM GED PREPARATION TEACHER) Hgb A1C 6.1(H) 4.0 - 5.6 % [facility]ENICE DEMPSEY Estimated Average Glucose 128 mg/dL [facility]ENICE DEMPSEY Comment: The ADA recommends reporting an estimated Average Glucose (eAG) with all Hemoglobin A1c results using the equation derived from a study of 507 normal and diabetic adults. Minority populations were underrepresented and children were not included. (Diabetes Care 31:9272-6403, 2008). The eAG is not equivalent to a fasting glucose. Blood 05/08/2023 8:18 AM GED PREPARATION TEACHER 05/08/2023 9:05 AM GED PREPARATION TEACHER us Antoinette Ingram TRUCK TECHNICIAN LAB BLOOD ORDERABLES Final Res ult [facility] [address] [facility] Department of Laboratories [place], [place] [id number] * Lipid panel (05/08/2023 8:18 AM GED PREPARATION TEACHER) Cholesterol 148 30 - 199 mg/dL VENCIE Comment: Interpretive Data Ages < or = [...] 2 [facility]ENICE DEMPSEY Blood 05/08/2023 8:18 AM GED PREPARATION TEACHER 05/08/2023 9:05 AM GED PREPARATION TEACHER us Antoinette Ingram TRUCK TECHNICIAN LAB BLOOD ORDERABLES Final Res ult [facility]ICE DEMPSEY [address] [facility] Department [place] [address] * Albumin Creatinine Ratio, Urine (05/08/2023 8:11 AM GED PREPARATION TEACHER) Albumin Ur 16.7 mg/L VENICE Comment: Interpretive Data No reference range established. Current interpretive data was last revised 2018. Creatinine Ur 176.0 mg/dL VENICE Comment: Interpretive Data No reference range established. Current interpretive data was last revised 2018. Albumin Creatinine Ratio, Ur 9 1 - 29 mg/g [facility]ENICE Urine 05/08/2023 8:11 AM GED PREPARATION TEACHER 05/08/2023 11:09 AM GED PREPARATION TEACHER us Antoinette Ingram NP LAB URINE ORDERABLES Final Res ult [facility] [address] [facility] [place] [address] * Dexa Axial Skeleton Bone Density 1 [...] John M.D. [place]:coy 01:46 PM 01:46 PM BM [EOD] us Huy Kwong MD IMG DXA PROCEDURES Final Re sult from Last 3 Months or Most Recently Relevant to Health Maintenance Insurance MEDICARE [facility] MEDICARE [facility] MEDICARE SUPPLEMENT MEDICARE [facility] Care Teams Poultry Farmer Relationship Specialty Start Date End Date Memo Montgomery MD PCP - General Family Medicine 03/16/24
--- OUTSIDE RECORDS SUMMARY | 2025-03-14 14:37 | XMS_ITS | Clinical Summary ---
Author Organization [facility] Address [address] [place] [address] Care Team Providers Care Family Assistant Name Role Phone Unavailable Primary Care Provider Unavailabl e Source Comments [facility],non-owned Affiliates and Associated Physician Practices is amultiple site organization consisting of ambulatory clinics and hospital sitesin [place], [place], [place] and [place]. This disclosure is being madepursuant to the Care Everywhere program and may not contain all information available regarding this patient. 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
--- OUTSIDE RECORDS SUMMARY | 2025-03-14 14:37 | XMS_ITS | Data Portability ---
Author Organization [place] - [facility] OFFICE Address [address] [place] [address] Care Team Providers Care Die Engraver Name Role Phone OMERO JAFFE Primary Care Provider CECY LACKEY Manager Of Internal Audit Assessment Encounter Date Assessment Date Assessment LastModified by Organization Details LastModified Time 05/02/2021 05/02/2021 Discussed with patient findings, diagnosis, and prognosis. Discussed evaluation and treatment options including risks and benefits with patient, and patient expressed understanding. The following interventions were recommended: heart healthy low-fat, low-sodium diet, begin regular exercise,maint ain appropriate weight, continue current medications, and medical follow-up as noted. [email or web address] Not available 05/02/2021 10:41:29 10/31/2021 10/31/2021 Discussed with patient findings, diagnosis, and prognosis. Discussed evaluation and treatment options including risks and benefits with patient, and patient expressed understanding. The following interventions were recommended: heart healthy low-fat, low-sodium diet, begin regular exercise,maint ain appropriate weight, continue current medications, and medical follow-up as noted. [email or web address] Not available 10/31/2021 11:10:13 05/01/2022 05/01/2022 Discussed with patient findings, diagnosis, and prognosis. Discussed evaluation and treatment options including risks and benefits with patient, and patient expressed understanding. The following interventions were recommended: heart healthy low-fat, low-sodium diet, begin regular exercise,maint ain appropriate weight, continue current medications, and medical follow-up as noted. Not available 05/01/2022 10:22:23 07/10/2022 07/10/2022 Discussed with patient findings, diagnosis, and prognosis. Discussed evaluation and treatment options including risks and benefits with patient, and patient expressed understanding. The following interventions were recommended: heart healthy low-fat, low-sodium diet, begin regular exercise,maint ain appropriate weight, continue current medications, and medical follow-up as noted. [email or web address] Not available 07/10/2022 12:57:48 10/09/2022 10/09/2022 Discussed with patient findings, diagnosis, and prognosis. Discussed evaluation and treatment options including risks and benefits with patient, and patient expressed understanding. The following interventions were recommended: heart healthy low-fat, low-sodium diet, begin regular exercise,maint ain appropriate weight, continue current medications, and medical follow-up as noted. [email or web address] Not available 10/09/2022 10:57:38 Plan of Treatment Reminders Order Date Submit Date Provider Last Modified By Organization Details Last Modified Time Details Appointments None recorded. Lab None recorded. Referral None recorded. Procedures None recorded. Surgeries None recorded. Imaging None recorded. Medication Orders enalapril maleate 20 mg tablet 2020 021 [facility] [place], [address], 10:55:23 Patient TargetsNo targets recorded. Patient Instructions Encounter Date Encounter Id Patient Instructions Last Modified By Organization Details Last Modified Time 05/02/2021 [id number] sleep apnea: car e instructions [email or web address] Not available 05/02/2021 10:55:14 high blood pressure: care instructions [email or web address] Not available 05/02/2021 10:55:13 learning about high blood pressure [email or web address] Not available 05/02/2021 10:55:13 high cholesterol : care instructions Not available 05/02/2021 10:55:14 aortic valve regurgitation: care instructions [email or web address] Not available 05/02/2021 10:55:14 10/31/2021 [id number] sleep apnea: car e instructions [email or web address] Not available 10/31/2021 11:26:18 high blood pressure: care instructions [email or web address] Not available 10/31/2021 11:26:18 learning about high blood pressure [email or web address] Not available 10/31/2021 11:26:18 high cholesterol : care instructions [email or web address] Not available 10/31/2021 11:26:18 aortic valve regurgitation: care instructions [email or web address] Not available 10/31/2021 11:26:18 05/01/2022 [id number] sleep apnea: car e instructions [email or web address] Not available 05/01/2022 10:37:07 high blood pressure: care instructions [email or web address] Not available 05/01/2022 10:37:07 learning about high blood pressure Not available 05/01/2022 10:37:07 high cholesterol : care instructions [email or web address] Not available 05/01/2022 10:37:07 aortic valve regurgitation: care instructions [email or web address] Not available 05/01/2022 10:37:07 07/10/2022 [id number] sleep apnea: car e instructions [email or web address] Not available 07/10/2022 13:07:41 high blood pressure: care instructions [email or web address] Not available 07/10/2022 13:07:41 learning about high blood pressure [email or web address] Not available 07/10/2022 13:07:41 high cholesterol : care instructions [email or web address] Not available 07/10/2022 13:07:41 aortic valve regurgitation: care instructions [email or web address] Not available 07/10/2022 13:07:41 10/09/2022 [id number] sleep apnea: car e instructions [email or web address] Not available 10/09/2022 11:34:25 high blood pressure: care instructions [email or web address] Not available 10/09/2022 11:34:25 learning about high blood pressure Not available 10/09/2022 11:34:25 high cholesterol : care instructions [email or web address] Not available 10/09/2022 11:34:25 aortic valve regurgitation: care instructions [email or web address] Not available 10/09/2022 11:34:25 Reason for Referral None Reported. Results Created Date Observation Date Name Description Value Unit Range Abnormal Flag Note LastModifiedBy Organization Detail LastModifiedTime 05/04/20 22 05/01/2022 elect surjitar diogr am No observ ation record ed. [email or web address] Not Available 2021 10:46:46 08/05/19 23 07/27/2022 , echo ardio gram No observ ation record ed. [email or web address] Not Available 2022 18:25:00 09/05/19 23 07/23/2022 XR, chest , 2 view No observ ation record ed. [email or web address] Not Available 11/2022 11:16:21 10/13/19 23 10/09/2022 XR, chest , 2 view No observ ation record ed. [email or web address] Not Available 2022 15:54:49 10/31/19 23 10/28/2022 CT, angio gram, chest , w/ contr ast No observ ation record ed. [email or web address] Not Available 2022 12:17:52 Result Notes None recorded. Problems Name Problem SNOMED Code Status Onset Date Resolution Date Notes Provider Name and Address Organization Details Recorded Time Diabetes mellitus 67295646 Active 2018 Celina shrestha [place] - [facility] 9 10:37:16 Hyperlipidemia 77415620 Active 2018 Celina shrestha [place] - [facility] 9 10:37:36 Essential hypertension 32964160 Active 2018 Celina shrestha [place] - [facility] 9 10:37:49 Chest pain 56201187 Active 2018 Celina shrestha [place] - [facility] 9 10:38:54 Coronary arterioscleros is 93207606 Active 2018 Milind shrestha [place] - [facility] 9 11:29:38 Aortic root dilatation 247306450 Active 2018 Milind shrestha [place] - [facility] 9 11:33:49 Aortic valve regurgitation 66563860 Active 2018 Milind shrestha [place] - [facility] 9 11:37:04 Obstructive sleep apnea syndrome 13442656 Active 2018 Milnid shrestha [place] - [facility] 9 11:40:47 Dyspnea on exertion 98516557 Active 2020 Milind shrestha [place] - [facility] 1 10:48:08 Problem Notes None recorded. Procedures Surgical History Date Name Laterality Status Provider Name and Address Organization Details Recorded Time Hysterectomy completed Merari Malghani [place] [facility] [place] 11/22/2018 10:48:39 Cholecystectomy completed [facility] [place] 11/22/2018 10:48:48 Back Surgery completed [facility] [place] 11/22/2018 10:48:58 Imaging Results None recorded. Procedure Notes None recorded. Medical Equipment None Reported. Allergies Allergen ID Allergen Name Allergen Category Reaction Reaction Severity Criticality Documentation Date Start Date Code Code System Note Provider Name and Address Organization Details Recorded Time 8427 ciproflox acin medicatio n Not available Not available Not available 11/19/2018 2551 RxNorm Celina Sparks [facility] 9 10:36:10 8428 Product containin g penicilli n (product) medicatio n Not available Not available Not available 11/19/2018 72258 8001 SNOMED Celina Sparks [facility] 9 10:36:17 Medications Name Sig Start Date Stop Date Status Note LastModified by Organization Details LastModified Time aspirin low ec 81mg tab TAKE 1 TABLET BY MOUTH ONCE DAILY 11/24 completed Not Available Not Available Not Available prednison e 10 mg tablet 10/09 completed no longer take 10/31/21 mb Not Available Not Available Not Available cefuroxim e axetil 250 mg tablet 09/09 completed pt not taking sm 09/12/19 20 sm Not Available Not Available Not Available sulfasala zine 500 mg tablet TAKE 1 TABLET BY MOUTH THREE TIMES DAILY 10/09 completed no longer take 10/31/21 mb Not Available Not Available Not Available enalapril maleate 10 mg tablet TAKE 1 TABLET BY MOUTH ONCE DAILY 07/03 completed Not Available Not Available Not Available azithromy anant 250 mg tablet 09/09 completed pt not taking sm 09/12/19 20 Not Available Not Available Not Available pravastat in 40 mg tablet Take 1 tablet(s ) every day by oral route at bedtime. active Not Available Not Available No t Available metoprolo l succinate ER 50 mg tablet,ex tended release 24 hr TAKE 1 TABLET BY MOUTH EVERY DAY active Not Available Not Available No t Available citalopra m 10 mg tablet TAKE 1 TABLET BY MOUTH ONCE DAILY 10/18 completed Not Available Not Available Not Available enalapril maleate 20 mg tablet TAKE 1 TABLET BY MOUTH DAILY 2022 active Not Available Not Available Not Avai lable glipizide ER 5 mg tablet, extended release 24 hr TAKE 1 TABLET BY MOUTH EVERY DAY WITH BREAKFAS T active Not Available Not Available No t Available diphenoxy late-atro pine 2.5 mg-0.025 mg tablet TAKE 1 TABLET BY MOUTH EVERY 6 HOURS NEEDED active Not Available Not Available No t Available metronida zole 500 mg tablet 10/09 completed Not Available Not Available Not Available amlodipin e 5 mg tablet Take 1 tablet every day by oral route. 03/21 completed Not Available Not Available Not Available peg-elect rolyte solution 420 gram oral solution TAKE DIRECTED BY OFFICE active Not Available Not Available No t Available omeprazol e 40 mg capsule,d elayed release TAKE 1 CAPSULE BY MOUTH EVERY DAY active Not Available Not Available No t Available aspirin 81 mg tablet,de layed release TAKE 1 TABLET BY MOUTH EVERY DAY active Not Available Not Available No t Available Celebrex 200 mg capsule Take 1 capsule every day by oral route. 09/13 completed Pt is no more on this medicati on 09/14/19 sm Not Available Not Available Not Available citalopra m 20 mg tablet TAKE 1 TABLET BY MOUTH EVERY DAY active Not Available Not Available No t Available amlodipin e 10 mg tablet TAKE 1 TABLET BY MOUTH DAILY 2022 active Not Available Not Available Not Avai lable metformin 1,000 mg tablet TAKE 1 TABLET BY MOUTH DAILY WITH A MEAL active Not Available Not Available No t Available promethaz ine 25 mg tablet TAKE 1/2 TABLET BY MOUTH EVERY 6 HOURS NEEDED FOR NAUSEA active Not Available Not Available No t Available metoprolo l tartrate 50 mg tablet TAKE 1 TABLET BY MOUTH DAILY WITH FOOD 10/31 completed no longer take 10/31/21 mb Not Available Not Available Not Available cefdinir 300 mg capsule 10/09 completed Not Available Not Available Not Available colestipo l 1 gram tablet TAKE ONE TABLET BY MOUTH TWICE DAILY. SWALLOW WHOLE WITH ANY LIQUID. active Not Available Not Available No t Available Aspir-81 1 tablet once a day 11/22 completed not taking this medicati on; resumed 11/22/18j l Not Available Not Available Not Available Levemir U-100 Insulin 100 unit/mL subcutane ous solution ADMINIST ER 20 UNITS UNDER THE SKIN EVERY MORNING. DISCARD REMAINDE R OF VIAL AFTER 42 DAYS active Not Available Not Available No t Available Vitamin D3 50 mcg (2,000 unit) capsule Take 1 capsule every day by oral route. 10/09 completed no longer take 10/31/21 mb Not Available Not Available Not Available Shingrix (PF) 50 mcg/0.5 mL intramusc ular suspensio n, kit 09/09 completed Not Available Not Available Not Available COVID-19 vacc,mRNA (Pfizer)( PF) complete d 07/21 completed Not Available Not Available Not Available aspirin 81 mg capsule Take 1 capsule every day by oral route. 2022 active Not Available Not Available Not Avai lable Vitals Date Recorded Body height Body mass index (BMI) Body weight Heart rate Oxygen saturation Oxygen saturation in Arterial blood by Pulse oximetry Systolic And Diastolic Provider Name and Address Organization Details Last Updated DateTime 3 160.02 cm 21.8 kg/m2 11562.8 6 g 96 /min 98 % 98 % 124/66 mm[Hg] Dahlia Guthrie [facility] 3 11:37:41 Date Recorded Body height Body mass index (BMI) Body weight Heart rate Oxygen saturation Oxygen saturation in Arterial blood by Pulse oximetry Systolic And Diastolic Provider Name and Address Organization Details Last Updated DateTime 3 160.02 cm 22.5 kg/m2 10182.2 3 g 72 /min 97 % 97 % 112/60 mm[Hg] Kasey Mills [facility] [place] 3 10:32:54 Date Recorded Body height Body mass index (BMI) Body weight Heart rate Oxygen saturation Oxygen saturation in Arterial blood by Pulse oximetry Systolic And Diastolic Provider Name and Address Organization Details Last Updated DateTime 2 160.02 cm 24.1 kg/m2 24268.5 6 g 62 /min 97 % 97 % 128/56 mm[Hg] Dahlia Camarena [facility] [place] 2 10:57:53 Date Recorded Body height Body mass index (BMI) Body weight Heart rate Oxygen saturation Oxygen saturation in Arterial blood by Pulse oximetry Systolic And Diastolic Provider Name and Address Organization Details Last Updated DateTime 2 160.02 cm 22.9 kg/m2 04884.4 2 g 69 /min 94 % 94 % 124/62 mm[Hg] Dahlia Camarena [facility] [place] 2 10:05:03 Date Recorded Body height Body mass index (BMI) Body weight Heart rate Oxygen saturation Oxygen saturation in Arterial blood by Pulse oximetry Systolic And Diastolic Provider Name and Address Organization Details Last Updated DateTime 1 160.02 cm 25.5 kg/m2 30563.3 g 85 /min 91 % 91 % 148/62 mm[Hg] Dahlia Camarena [facility] [place] 1 09:59:53 Social History Question Answer Notes LastModified by [employer] Details LastModified Time Tobacco Smoking Status Never Smoker Not Available [facility] 04/02/2020 03:30:41 Do You Have An Advance Directive? No [id number] Information not available 04/02/2020 What Is Your Level Of Caffeine Consumption? Moderate [id number] Information not available 04/02/2020 How Much Tobacco Do You Chew? None [id number] Information not available 04/02/2020 What Type Of Diet Are You Following? REGULAR [id number] Information not available 04/02/2020 Which Illicit Or Recreational Drugs Have You Used? No [id number] Information not available 04/02/2020 Live Alone Or With Others? [email or web address] Information not available 11/22/2018 Marital Status Single [email or web address] Informatio n not available 11/22/2018 What Was The Date Of Your Most Recent Tobacco Screening? 11/22/2018 [id number] Information not available 04/02/2020 How Many Children Do You Have? 0 [id number] Information not available 04/02/2020 How Much Tobacco Do You Smoke? No [id number] Information not available 04/02/2020 General [email or web address] Information not available 11/22/2018 How Many Years Have You Smoked Tobacco? 0 [id number] Information not available 04/02/2020 Sex: Unknown Functional Status Question Answer Note LastModified by [employer] Details LastModified Time What is your level of alcohol consumption? Moderate [id number] Information not available 04/02/2020 Do you or have you ever used smokeless tobacco? Never used smokeless tobacco [id number] Information not available 04/02/2020 Do you or have you ever used e-cigarettes or vape? Never used electronic cigarettes [id number] Information not available 04/02/2020 What is your exercise level? Moderate [id number] Information not available 04/02/2020 Mental Status None recorded. Family History Relationship Description Onset Age of this Age Resolved Age Notes LastModified by Organization Details LastModified Time Mother No current problems or disability [email or web address] Not available 10/30 10:46:40 Father Heart disease [email or web address] Not available 2020 11:05:20 Father Myocardial infarction [email or web address] Not available 11/28 11:05:26 Father Father [email or web address] Not available 2020 11:05:42 Notes:Father with [place] at 59. Medical History Condition Response Coronary Artery Disease Y Diabetes Y Hyperlipidemia Y Sleep Apnea Y Hypertension Y Gynecological HistoryNo gynecological history recorded. Obstetrics History GPAL:G 0 P 0 0 0 0 Past Encounters Encounter ID Performer Location Encounter Start Date Encounter Closed Date Diagnosis/Indication Diagnosis SNOMED-CT Code Diagnosis ICD10 Code Diagnosis IMO Codes Diagnosis Note [id number] MD Gordon [facility]cor[facility] Office [address] [place] [address] 11/22/2018 10:09:55 11/22/2018 11:52:44 Hyperlipidemia 14844523 E78.2 Patient's hyperlipid emia is well-contr olled on present medical therapy. Patient was advised to eat a low-fat diet. Patient is tolerating , without difficulty , the current medication s. I have not made changes to the current regimen.Ne eds to keep LDL less than 70, and HDL more than 40. Had LIPID 06/17/2018 TR 95 CH 143 HDL 62 LDL 62 TSH 0.57 Essential hypertension 42875654 I10 Patient's blood pressure is well-contr olled on present medical therapy. Patient is tolerating , without difficulty , the current medication s. I have not made changes to the current regimen. Patient is advised to maintain a blood pressure diary. Patient was advised to eat a low-sodium diet (2 grams sodium or less daily). BP monitor. Diabetes mellitus 529004 09 E11.59 Discussed importance of tight glycemic control to minimize cardiovasc ular disease progressio n. Coronary arteriosclerosis 06001790 I25.10 Stable. Had [place] stress 05/10/2012 : Normal rest and pharmacolo gic stress myocardial perfusion. Normal LV size and systolic function. Had [facility] 06/30/2006 Normal size left ventricle. LVSF is normal. Elevated left ventricula r systolic and diastolic pressures post angiograph ically. Mild ectasia in the right coronary artery, and 20-30% disease in the proximal segment Changed metoprolol tartrate 50 mg qd to metoprolol succinate 50 mg qd 11/22/18. Resumed ASA 81 mg qd 11/22/18. Aortic suzie t dilatation 867497331 I77.810 Mild. Had Echo 03/03/2017: The aortic root and ascending aorta are dilated measuring up to 4.0 cm. Obtain echo to evaluate for structural /functiona l disease. Aortic efrain ve regurgitation 81802757 I35.1 Mild-mod. AI. Had Echo 03/03/2017 The LV size is normal. There is moderate concentric LV hypertroph y. Overall LVSF id normal with an EF between 65-70%. The LVEDP is elevated. The left atrium is mildly dilated. Aortic valve is trileaflet and is mildly thickened. There is mild to moderate aortic regurgitat ion. Mild mitral regurgitat ion is present. Mild thickening of the anterior mitral valve leaflet. Mild to moderate tricuspid regurgitat ion present. The right ventricula r systolic pressure as measured by doppler is 37.9 mmHg. Mild pulmonic valve regurgitat ion. The aortic root and ascending aorta are dilated measuring up to 4.0 cm. Obtain echo to evaluate for structural /functiona l disease. Obstructiv e sleep apnea syndrome 68578187 G47.33 Reports daytime somnolence and fatigue, with snoring. Has mild pulm. HTN. Obtain home sleep study. [id number] MD [facility] Office [address] [address] 12/27/2018 10:27:45 12/27/2018 11:19:50 Coronary arteriosclerosis 32900797 I25.10 Stable. Had [place] stress 05/10/2012 : Normal rest and pharmacolo gic stress myocardial perfusion. Normal LV size and systolic function. Had C 06/30/2006 Normal size left ventricle. LVSF is normal. Elevated left ventricula r systolic and diastolic pressures post angiograph ically. Mild ectasia in the right coronary artery, and 20-30% disease in the proximal segment Changed metoprolol tartrate 50 mg qd to metoprolol succinate 50 mg qd 11/22/18. Resumed ASA 81 mg qd 11/22/18. Needs to keep LDL less than 70, and HDL more than 40. Essential hypertension 95482765 I10 Has mild-moder ate LVH. Patient's blood pressure is somewhat well-contr olled on present medical therapy. Patient is tolerating , without difficulty , the current medication s. I have made the following changes to the current regimen. Patient is advised to maintain a blood pressure diary. Patient was advised to eat a low-sodium diet (2 grams sodium or less daily). BP monitor. Increased to enalapril 20 mg qd 12/27/18. Obtain BMP, Mg in 3 wks. Hyperlipidemia 71181920 E78.2 Patient's hyperlipid emia is well-contr olled on present medical therapy. Patient was advised to eat a low-fat diet. Patient is tolerating , without difficulty , the current medication s. I have not made changes to the current regimen.Ne eds to keep LDL less than 70, and HDL more than 40. LIPID 12/24/2018 TR 125 CH 153 HDL 60 LDL 68 Diabetes mellitus 705204 09 E11.59 Discussed importance of tight glycemic control to minimize cardiovasc ular disease progressio n. Aortic suzie t dilatation 279848652 I77.810 Mild. Had ECHO done in 12/08/18 showed normal global systolic function , EF 55-60% , Grade I diastolic dysfunctio n , mild aortic regurgitat ion , mild mitral regurgitat ion , mild to moderate tricuspid regurgitat ion , mild pulmonary hypertensi on. Normal aortic root dimensions 3.3 to 2.9 cm. Had Echo 03/03/2017: The aortic root and ascending aorta are dilated measuring up to 4.0 cm. Obtain echo to evaluate for structural /functiona l disease. Aortic efrain ve regurgitation 93883486 I35.1 Mild AI. Had ECHO done in 12/08/18 showed normal global systolic function , EF 55-60% , Grade I diastolic dysfunctio n , mild aortic regurgitat ion , mild mitral regurgitat ion , mild to moderate tricuspid regurgitat ion , mild pulmonary hypertensi on . Had Echo 03/03/2017 The LV size is normal. There is moderate concentric LV hypertroph y. Overall LVSF id normal with an EF between 65-70%. The LVEDP is elevated. The left atrium is mildly dilated. Aortic valve is trileaflet and is mildly thickened. There is mild to moderate aortic regurgitat ion. Mild mitral regurgitat ion is present. Mild thickening of the anterior mitral valve leaflet. Mild to moderate tricuspid regurgitat ion present. The right ventricula r systolic pressure as measured by doppler is 37.9 mmHg. Mild pulmonic valve regurgitat ion. The aortic root and ascending aorta are dilated measuring up to 4.0 cm. Obtain echo to evaluate for structural /functiona l disease. Obstructiv e sleep apnea syndrome 64919280 G47.33 Reports daytime somnolence and fatigue, with snoring. Has mild pulm. HTN. Obtain home sleep study. [id number] MD [facility] Office [address] [place] [address] [place] [address] 02/07/2019 11:28:47 02/07/2019 13:09:46 Coronary arteriosclerosis 82067362 I25.10 Stable. Had [place] stress 05/10/2012 : Normal rest and pharmacolo gic stress myocardial perfusion. Normal LV size and systolic function. Had [facility] 06/30/2006 Normal size left ventricle. LVSF is normal. Elevated left ventricula r systolic and diastolic pressures post angiograph ically. Mild ectasia in the right coronary artery, and 20-30% disease in the proximal segment Changed metoprolol tartrate 50 mg qd to metoprolol succinate 50 mg qd 11/22/18. Resumed ASA 81 mg qd 11/22/18. Needs to keep LDL less than 70, and HDL more than 40. Essential hypertension 99901775 I10 Has mild-moder ate LVH. Patient's blood pressure is somewhat well-contr olled on present medical therapy. Patient is tolerating , without difficulty , the current medication s. I have made the following changes to the current regimen. Patient is advised to maintain a blood pressure diary. Patient was advised to eat a low-sodium diet (2 grams sodium or less daily). BP monitor. Increased to enalapril 20 mg qd 12/27/18. Had 01/20/2019 K 4.3, CR 0.8, MG 1.7 Began amlodipine 5 mg qd 02/07/19. Hyperlipidemia [id number] E78.2 Patient's hyperlipid yessy is well-contr olled on present medical therapy. Patient was advised to eat a low-fat diet. Patient is tolerating , without difficulty , the current medication s. I have not made changes to the current regimen.Ne eds to keep LDL less than 70, and HDL more than 40. LIPID 12/24/2018 TR 125 CH 153 HDL 60 LDL 68 Diabetes mellitus [id number] 09 E11.59 Discussed importance of tight glycemic control to minimize cardiovasc ular disease progressio n. Aortic suzie t dilatation [id number] I77.810 Mild. Had ECHO done in 12/08/18 showed normal global systolic function , EF 55-60% , Grade I diastolic dysfunctio n , mild aortic regurgitat ion , mild mitral regurgitat ion , mild to moderate tricuspid regurgitat ion , mild pulmonary hypertensi on. Normal aortic root dimensions 3.3 to 2.9 cm. Had Echo 03/03/2017: The aortic root and ascending aorta are dilated measuring up to 4.0 cm. Obtain echo to evaluate for structural /functiona l disease. Aortic efrain ve regurgitation [id number] I35.1 Mild AI. Had ECHO done in 12/08/18 showed normal global systolic function , EF 55-60% , Grade I diastolic dysfunctio n , mild aortic regurgitat ion , mild mitral regurgitat ion , mild to moderate tricuspid regurgitat ion , mild pulmonary hypertensi on . Had Echo 03/03/2017 The LV size is normal. There is moderate concentric LV hypertroph y. Overall LVSF id normal with an EF between 65-70%. The LVEDP is elevated. The left atrium is mildly dilated. Aortic valve is trileaflet and is mildly thickened. There is mild to moderate aortic regurgitat ion. Mild mitral regurgitat ion is present. Mild thickening of the anterior mitral valve leaflet. Mild to moderate tricuspid regurgitat ion present. The right ventricula r systolic pressure as measured by doppler is 37.9 mmHg. Mild pulmonic valve regurgitat ion. The aortic root and ascending aorta are dilated measuring up to 4.0 cm. Obtain echo to evaluate for structural /functiona l disease. Obstructiv e sleep apnea syndrome [id number] G47.33 Reports daytime somnolence and fatigue, with snoring. Has mild pulm. HTN. Obtained home sleep study 01/19/19 with moderate ELISEO:Sleep study 01/19/2019 Patient underwent a onenight home sleep test (with respirator y effort belt) and by behavioral criteria, slept for approximat gris 6.1 hours, with a sleep latency of 9 minutes and a sleep efficiency of 86.3%. Moderate sleep disordered breathing (AHI=27) is noted based on a 4% hypopnea desaturati on criteria. The patient slept supine 21.8% of the night based on valid recording time of 6.06 hours and is 1.6 times as likely to have apneas/ hypopneas when supine. The apneas/hyp opneas are accompanie d by mild oxygen desaturati on (percent time below 90% SpO2:7.1% Min SpO2:7.1%. Min SpO2:81.2% ). The average desaturati on across all sleep disordered breathing events is 4.2%. Snoring occurs for 38.8% (30 dB) of the study, 14.4% is very loud. The mean pulse rate is 70 BPM, with infrequent pulse rate variabilit y (30 events with >=6 BPM increase/d ecrease per hour). Began CPAP. [id number] MD Gordon Corcoran Office [address] [place] [address] 03/21/2019 10:51:58 03/21/2019 12:05:36 Coronary arteriosclerosis [id number] I25.10 Stable. Had [place] stress 05/10/2012 : Normal rest and pharmacolo gic stress myocardial perfusion. Normal LV size and systolic function. Had [facility] 06/30/2006 Normal size left ventricle. LVSF is normal. Elevated left ventricula r systolic and diastolic pressures post angiograph ically. Mild ectasia in the right coronary artery, and 20-30% disease in the proximal segment Changed metoprolol tartrate 50 mg qd to metoprolol succinate 50 mg qd 11/22/18. Resumed ASA 81 mg qd 11/22/18. Needs to keep LDL less than 70, and HDL more than 40. Essential hypertension [id number] I10 Has mild-moder ate LVH. Patient's blood pressure is somewhat well-contr olled on present medical therapy. Patient is tolerating , without difficulty , the current medication s. I have made the following changes to the current regimen. Patient is advised to maintain a blood pressure diary. Patient was advised to eat a low-sodium diet (2 grams sodium or less daily). BP monitor. Increased to enalapril 20 mg qd 12/27/18. Had 01/20/2019 K 4.3, CR 0.8, MG 1.7 Began amlodipine 5 mg qd 02/07/19. Increased to amlodipine 10 mg qd 03/21/19. Hyperlipidemia [id number] E78.2 Patient's hyperlipid emia is well-contr olled on present medical therapy. Patient was advised to eat a low-fat diet. Patient is tolerating , without difficulty , the current medication s. I have not made changes to the current regimen.Ne eds to keep LDL less than 70, and HDL more than 40. LIPID 12/24/2018 TR 125 CH 153 HDL 60 LDL 68 Diabetes mellitus 336468 09 E11.59 Discussed importance of tight glycemic control to minimize cardiovasc ular disease progressio n. Aortic suzie t dilatation [id number] I77.810 Mild. Had ECHO done in 12/08/18 showed normal global systolic function , EF 55-60% , Grade I diastolic dysfunctio n , mild aortic regurgitat ion , mild mitral regurgitat ion , mild to moderate tricuspid regurgitat ion , mild pulmonary hypertensi on. Normal aortic root dimensions 3.3 to 2.9 cm. Had Echo 03/03/2017: The aortic root and ascending aorta are dilated measuring up to 4.0 cm. Aortic efrain ve regurgitation [id number] I35.1 Mild AI. Had ECHO done in 12/08/18 showed normal global systolic function , EF 55-60% , Grade I diastolic dysfunctio n , mild aortic regurgitat ion , mild mitral regurgitat ion , mild to moderate tricuspid regurgitat ion , mild pulmonary hypertensi on . Had Echo 03/03/2017 The LV size is normal. There is moderate concentric LV hypertroph y. Overall LVSF id normal with an EF between 65-70%. The LVEDP is elevated. The left atrium is mildly dilated. Aortic valve is trileaflet and is mildly thickened. There is mild to moderate aortic regurgitat ion. Mild mitral regurgitat ion is present. Mild thickening of the anterior mitral valve leaflet. Mild to moderate tricuspid regurgitat ion present. The right ventricula r systolic pressure as measured by doppler is 37.9 mmHg. Mild pulmonic valve regurgitat ion. The aortic root and ascending aorta are dilated measuring up to 4.0 cm. Obstructiv e sleep apnea syndrome [id number] G47.33 Reports daytime somnolence and fatigue, with snoring. Has mild pulm. HTN. Obtained home sleep study 01/19/19 with moderate ELISEO:Sleep study 01/19/2019 Patient underwent a onenight home sleep test (with respirator y effort belt) and by behavioral criteria, slept for approximat gris 6.1 hours, with a sleep latency of 9 minutes and a sleep efficiency of 86.3%. Moderate sleep disordered breathing (AHI=27) is noted based on a 4% hypopnea desaturati on criteria. The patient slept supine 21.8% of the night based on valid recording time of 6.06 hours and is 1.6 times as likely to have apneas/ hypopneas when supine. The apneas/hyp opneas are accompanie d by mild oxygen desaturati on (percent time below 90% SpO2:7.1% Min SpO2:7.1%. Min SpO2:81.2% ). The average desaturati on across all sleep disordered breathing events is 4.2%. Snoring occurs for 38.8% (30 dB) of the study, 14.4% is very loud. The mean pulse rate is 70 BPM, with infrequent pulse rate variabilit y (30 events with >=6 BPM increase/d ecrease per hour). Began CPAP, but was intolerant of CPAP. Patient is willing to have referral for oral device for ELISEO since intolerant of CPAP. [id number] MD Gordon Corcoran Office [address] [place] [address] 09/12/2019 10:21:27 09/12/2019 11:25:22 Coronary arteriosclerosis [id number] I25.10 Stable. Had [place] stress 05/10/2012 : Normal rest and pharmacolo gic stress myocardial perfusion. Normal LV size and systolic function. Had [facility] 06/30/2006 Normal size left ventricle. LVSF is normal. Elevated left ventricula r systolic and diastolic pressures post angiograph ically. Mild ectasia in the right coronary artery, and 20-30% disease in the proximal segment Changed metoprolol tartrate 50 mg qd to metoprolol succinate 50 mg qd 11/22/18. Resumed ASA 81 mg qd 11/22/18. Needs to keep LDL less than 70, and HDL more than 40. Essential hypertension 73480918 I10 Has mild-moder ate LVH. Patient's blood pressure is well-contr olled on present medical therapy. Patient is tolerating , without difficulty , the current medication s. I have not made changes to the current regimen. Patient is advised to maintain a blood pressure diary. Patient was advised to eat a low-sodium diet (2 grams sodium or less daily). BP monitor. Increased to enalapril 20 mg qd 12/27/18. Had 01/20/2019 K 4.3, CR 0.8, MG 1.7 Began amlodipine 5 mg qd 02/07/19. Increased to amlodipine 10 mg qd 03/21/19. Hyperlipidemia [id number] E78.2 Patient's hyperlipid emia is well-contr olled on present medical therapy. Patient was advised to eat a low-fat diet. Patient is tolerating , without difficulty , the current medication s. I have not made changes to the current regimen.Ne eds to keep LDL less than 70, and HDL more than 40. Had LIPID 12/24/2018 TR 125 CH 153 HDL 60 LDL 68. Had LIPID 07/08/2019 TR 109 CH 132 HDL 58 LDL 52. Diabetes mellitus 312310 09 E11.59 Discussed importance of tight glycemic control to minimize cardiovasc ular disease progressio n. Aortic suzie t dilatation [id number] I77.810 Mild. Had ECHO done in 12/08/18 showed normal global systolic function , EF 55-60% , Grade I diastolic dysfunctio n , mild aortic regurgitat ion , mild mitral regurgitat ion , mild to moderate tricuspid regurgitat ion , mild pulmonary hypertensi on. Normal aortic root dimensions 3.3 to 2.9 cm. Had Echo 03/03/2017: The aortic root and ascending aorta are dilated measuring up to 4.0 cm. Aortic efrain ve regurgitation [id number] I35.1 Mild AI. Had ECHO done in 12/08/18 showed normal global systolic function , EF 55-60% , Grade I diastolic dysfunctio n , mild aortic regurgitat ion , mild mitral regurgitat ion , mild to moderate tricuspid regurgitat ion , mild pulmonary hypertensi on . Had Echo 03/03/2017 The LV size is normal. There is moderate concentric LV hypertroph y. Overall LVSF id normal with an EF between 65-70%. The LVEDP is elevated. The left atrium is mildly dilated. Aortic valve is trileaflet and is mildly thickened. There is mild to moderate aortic regurgitat ion. Mild mitral regurgitat ion is present. Mild thickening of the anterior mitral valve leaflet. Mild to moderate tricuspid regurgitat ion present. The right ventricula r systolic pressure as measured by doppler is 37.9 mmHg. Mild pulmonic valve regurgitat ion. The aortic root and ascending aorta are dilated measuring up to 4.0 cm. Obstructiv e sleep apnea syndrome [id number] G47.33 Reports daytime somnolence and fatigue, with snoring. Has mild pulm. HTN. Obtained home sleep study 01/19/19 with moderate ELISEO:Sleep study 01/19/2019 Patient underwent a onenight home sleep test (with respirator y effort belt) and by behavioral criteria, slept for approximat gris 6.1 hours, with a sleep latency of 9 minutes and a sleep efficiency of 86.3%. Moderate sleep disordered breathing (AHI=27) is noted based on a 4% hypopnea desaturati on criteria. The patient slept supine 21.8% of the night based on valid recording time of 6.06 hours and is 1.6 times as likely to have apneas/ hypopneas when supine. The apneas/hyp opneas are accompanie d by mild oxygen desaturati on (percent time below 90% SpO2:7.1% Min SpO2:7.1%. Min SpO2:81.2% ). The average desaturati on across all sleep disordered breathing events is 4.2%. Snoring occurs for 38.8% (30 dB) of the study, 14.4% is very loud. The mean pulse rate is 70 BPM, with infrequent pulse rate variabilit y (30 events with >=6 BPM increase/d ecrease per hour). Began CPAP, but was intolerant of CPAP. Patient has oral device for ELISEO since intolerant of CPAP. She is now tolerating oral device.Sto p VitB12 energy supplement which had 150 mg caffeine. [id number] MD Gordon Corcoran Office [address] [facility] [place] [address] 03/15/2020 09:47:26 03/15/2020 11:02:50 Coronary arteriosclerosis [id number] I25.10 Stable. Had [place] stress 05/10/2012 : Normal rest and pharmacolo gic stress myocardial perfusion. Normal LV size and systolic function. Had [facility] 06/30/2006 Normal size left ventricle. LVSF is normal. Elevated left ventricula r systolic and diastolic pressures post angiograph ically. Mild ectasia in the right coronary artery, and 20-30% disease in the proximal segment Changed metoprolol tartrate 50 mg qd to metoprolol succinate 50 mg qd 11/22/18. Resumed ASA 81 mg qd 11/22/18. Needs to keep LDL less than 70, and HDL more than 40. Essential hypertension 93008570 I10 Has mild-moder ate LVH. Patient's blood pressure is well-contr olled on present medical therapy. Patient is tolerating , without difficulty , the current medication s. I have not made changes to the current regimen. Patient is advised to maintain a blood pressure diary. Patient was advised to eat a low-sodium diet (2 grams sodium or less daily). BP monitor. Increased to enalapril 20 mg qd 12/27/18. Had 01/20/2019 K 4.3, CR 0.8, MG 1.7 Began amlodipine 5 mg qd 02/07/19. Increased to amlodipine 10 mg qd 03/21/19. Hyperlipidemia 84151077 E78.2 Patient's hyperlipid emia is well-contr olled on present medical therapy. Patient was advised to eat a low-fat diet. Patient is tolerating , without difficulty , the current medication s. I have not made changes to the current regimen.Ne eds to keep LDL less than 70, and HDL more than 40. Had LIPID 12/24/2018 TR 125 CH 153 HDL 60 LDL 68. Had LIPID 07/08/2019 TR 109 CH 132 HDL 58 LDL 52. Had 02/12/2020 : Cholestero l 141, Triglyceri lisy 131, HDl 56, LDL 59 . Diabetes mellitus 994286 09 E11.59 Discussed importance of tight glycemic control to minimize cardiovasc ular disease progressio n. Aortic suzie t dilatation [id number] I77.810 Mild. Had ECHO done in 12/08/18 showed normal global systolic function , EF 55-60% , Grade I diastolic dysfunctio n , mild aortic regurgitat ion , mild mitral regurgitat ion , mild to moderate tricuspid regurgitat ion , mild pulmonary hypertensi on. Normal aortic root dimensions 3.3 to 2.9 cm. Had Echo 03/03/2017: The aortic root and ascending aorta are dilated measuring up to 4.0 cm. Aortic efrain ve regurgitation 02615068 I35.1 Mild AI. Had ECHO done in 12/08/18 showed normal global systolic function , EF 55-60% , Grade I diastolic dysfunctio n , mild aortic regurgitat ion , mild mitral regurgitat ion , mild to moderate tricuspid regurgitat ion , mild pulmonary hypertensi on . Had Echo 03/03/2017 The LV size is normal. There is moderate concentric LV hypertroph y. Overall LVSF id normal with an EF between 65-70%. The LVEDP is elevated. The left atrium is mildly dilated. Aortic valve is trileaflet and is mildly thickened. There is mild to moderate aortic regurgitat ion. Mild mitral regurgitat ion is present. Mild thickening of the anterior mitral valve leaflet. Mild to moderate tricuspid regurgitat ion present. The right ventricula r systolic pressure as measured by doppler is 37.9 mmHg. Mild pulmonic valve regurgitat ion. The aortic root and ascending aorta are dilated measuring up to 4.0 cm. Obstructiv e sleep apnea syndrome 17160600 G47.33 Reports daytime somnolence and fatigue, with snoring. Has mild pulm. HTN. Obtained home sleep study 01/19/19 with moderate ELISEO:Sleep study 01/19/2019 Patient underwent a onenight home sleep test (with respirator y effort belt) and by behavioral criteria, slept for approximat gris 6.1 hours, with a sleep latency of 9 minutes and a sleep efficiency of 86.3%. Moderate sleep disordered breathing (AHI=27) is noted based on a 4% hypopnea desaturati on criteria. The patient slept supine 21.8% of the night based on valid recording time of 6.06 hours and is 1.6 times as likely to have apneas/ hypopneas when supine. The apneas/hyp opneas are accompanie d by mild oxygen desaturati on (percent time below 90% SpO2:7.1% Min SpO2:7.1%. Min SpO2:81.2% ). The average desaturati on across all sleep disordered breathing events is 4.2%. Snoring occurs for 38.8% (30 dB) of the study, 14.4% is very loud. The mean pulse rate is 70 BPM, with infrequent pulse rate variabilit y (30 events with >=6 BPM increase/d ecrease per hour). Began CPAP, but was intolerant of CPAP. Patient has oral device for ELISEO since intolerant of CPAP. She is now tolerating oral device.She previously stopped VitB12 energy supplement which had 150 mg caffeine. [id number] MD Gordon Corcoran Office [address] [facility] [place] [address] 09/13/2020 10:08:41 09/13/2020 11:39:14 Coronary arteriosclerosis [id number] I25.10 Stable. Had [place] stress 05/10/2012 : Normal rest and pharmacolo gic stress myocardial perfusion. Normal LV size and systolic function. Had [facility] 06/30/2006 Normal size left ventricle. LVSF is normal. Elevated left ventricula r systolic and diastolic pressures post angiograph ically. Mild ectasia in the right coronary artery, and 20-30% disease in the proximal segment Changed metoprolol tartrate 50 mg qd to metoprolol succinate 50 mg qd 11/22/18. Resumed ASA 81 mg qd 11/22/18. Needs to keep LDL less than 70, and HDL more than 40. Consider repeat stress test if fatigue does not improve with increased use of oral device for ELISEO. Essential hypertension 83364143 I10 Has mild-moder ate LVH. Patient's blood pressure is well-contr olled on present medical therapy. Patient is tolerating , without difficulty , the current medication s. I have not made changes to the current regimen. Patient is advised to maintain a blood pressure diary. Patient was advised to eat a low-sodium diet (2 grams sodium or less daily). BP monitor. Increased to enalapril 20 mg qd 12/27/18, which was reduced to 10 mg qd by PCP 09/11/19. Had 01/20/2019 K 4.3, CR 0.8, MG 1.7 Began amlodipine 5 mg qd 02/07/19. Increased to amlodipine 10 mg qd 03/21/19. Hyperlipidemia 24669837 E78.2 Patient's hyperlipid emia is well-contr olled on present medical therapy. Patient was advised to eat a low-fat diet. Patient is tolerating , without difficulty , the current medication s. I have not made changes to the current regimen. Needs to keep LDL less than 70, and HDL more than 40. Had LIPID 12/24/2018 TR 125 CH 153 HDL 60 LDL 68. Had LIPID 07/08/2019 TR 109 CH 132 HDL 58 LDL 52. Had 02/12/2020 : Cholestero l 141, Triglyceri lisy 131, HDl 56, LDL 59 . Obtain FLP. Diabetes mellitus 496408 09 E11.59 Discussed importance of tight glycemic control to minimize cardiovasc ular disease progressio n. Aortic suzie t dilatation [id number] I77.810 Mild. Had ECHO done in 12/08/18 showed normal global systolic function , EF 55-60% , Grade I diastolic dysfunctio n , mild aortic regurgitat ion , mild mitral regurgitat ion , mild to moderate tricuspid regurgitat ion , mild pulmonary hypertensi on. Normal aortic root dimensions 3.3 to 2.9 cm. Had Echo 03/03/2017: The aortic root and ascending aorta are dilated measuring up to 4.0 cm. Obtain echo to evaluate for structural /functiona l disease, reassess aortic dimensions . Aortic efrain ve regurgitation 86045138 I35.1 Mild AI. Had ECHO done in 12/08/18 showed normal global systolic function , EF 55-60% , Grade I diastolic dysfunctio n , mild aortic regurgitat ion , mild mitral regurgitat ion , mild to moderate tricuspid regurgitat ion , mild pulmonary hypertensi on . Had Echo 03/03/2017 The LV size is normal. There is moderate concentric LV hypertroph y. Overall LVSF id normal with an EF between 65-70%. The LVEDP is elevated. The left atrium is mildly dilated. Aortic valve is trileaflet and is mildly thickened. There is mild to moderate aortic regurgitat ion. Mild mitral regurgitat ion is present. Mild thickening of the anterior mitral valve leaflet. Mild to moderate tricuspid regurgitat ion present. The right ventricula r systolic pressure as measured by doppler is 37.9 mmHg. Mild pulmonic valve regurgitat ion. The aortic root and ascending aorta are dilated measuring up to 4.0 cm. Obtain echo to evaluate for structural /functiona l disease, reassess AI. Obstructiv e sleep apnea syndrome [id number] G47.33 Reports increased daytime somnolence and fatigue, with snoring. Has mild pulm. HTN. Obtained home sleep study 01/19/19 with moderate ELISEO: Sleep study 01/19/2019 Patient underwent a onenight home sleep test (with respirator y effort belt) and by behavioral criteria, slept for approximat gris 6.1 hours, with a sleep latency of 9 minutes and a sleep efficiency of 86.3%. Moderate sleep disordered breathing (AHI=27) is noted based on a 4% hypopnea desaturati on criteria. The patient slept supine 21.8% of the night based on valid recording time of 6.06 hours and is 1.6 times as likely to have apneas/ hypopneas when supine. The apneas/hyp opneas are accompanie d by mild oxygen desaturati on (percent time below 90% SpO2:7.1% Min SpO2:7.1%. Min SpO2:81.2% ). The average desaturati on across all sleep disordered breathing events is 4.2%. Snoring occurs for 38.8% (30 dB) of the study, 14.4% is very loud. The mean pulse rate is 70 BPM, with infrequent pulse rate variabilit y (30 events with >=6 BPM increase/d ecrease per hour). Began CPAP, but was intolerant of CPAP. Patient has oral device for ELISEO since intolerant of CPAP. She previously stopped VitB12 energy supplement which had 150 mg caffeine. Reports increased fatigue for 3 months. She sleeps 12 hours a day. She reports using her ELISEO oral device previously but has been unable to wear it for 3 months due to pointy surfaces. Encouraged patient to have oral device adjusted. Given increased fatigue and mild pulm. HTN on prior echo, obtain repeat echo and reassess RVSP. [id number] MD Gorodn Corcoran Office [address] [place] [address] 10/18/2020 09:58:49 10/18/2020 11:13:30 Coronary arteriosclerosis [id number] I25.10 Stable. Had [place] stress 05/10/2012 : Normal rest and pharmacolo gic stress myocardial perfusion. Normal LV size and systolic function. Had C 06/30/2006 Normal size left ventricle. LVSF is normal. Elevated left ventricula r systolic and diastolic pressures post angiograph ically. Mild ectasia in the right coronary artery, and 20-30% disease in the proximal segment Changed metoprolol tartrate 50 mg qd to metoprolol succinate 50 mg qd 11/22/18. Continue statin. Resumed ASA 81 mg qd 11/22/18. Needs to keep LDL less than 70, and HDL more than 40. Essential hypertension 97485383 I10 Has mild-moder ate LVH. Patient's blood pressure is somewhat well-contr olled on present medical therapy. Patient is tolerating , without difficulty , the current medication s. I have not made changes to the current regimen. Patient is advised to maintain a blood pressure diary. Patient was advised to eat a low-sodium diet (2 grams sodium or less daily). BP monitor. Increased to enalapril 20 mg qd 12/27/18, which was reduced to 10 mg qd by PCP 09/11/19. Had 01/20/2019 K 4.3, CR 0.8, MG 1.7 Began amlodipine 5 mg qd 02/07/19. Increased to amlodipine 10 mg qd 03/21/19. Hyperlipidemia 78274428 E78.2 Patient's hyperlipid emia is well-contr olled on present medical therapy. Patient was advised to eat a low-fat diet. Patient is tolerating , without difficulty , the current medication s. I have not made changes to the current regimen. Needs to keep LDL less than 70, and HDL more than 40. Had LIPID 12/24/2018 TR 125 CH 153 HDL 60 LDL 68. Had LIPID 07/08/2019 TR 109 CH 132 HDL 58 LDL 52. Had 02/12/2020 : Cholestero l 141, Triglyceri lisy 131, HDl 56, LDL 59 . Had 09/21/20: TC 128, TG 107, HDL 52, LDL 55. Continue statin. Diabetes mellitus 573787 09 E11.59 Discussed importance of tight glycemic control to minimize cardiovasc ular disease progressio n. Aortic suzie t dilatation [id number] I77.810 Mild. Had ECHO 10/08/20: LV chamber size is normal, LV wall thickness is mildly increased, the estimated LVEF is 55-60%(nor mal), LV relaxation is impaired, there is mild aortic regurgitat ion, there is mild thickening of the mitral valve anterior leaflet, there is a dense posterior mitral annular calcificat ion, there is mild mitral regurgitat ion, there is mild tricuspid regurgitat ion, there is mild pulmonic regurgitat ion, the ascending aorta is mildly dilated, there is a trace pericardia l effusion. Had ECHO done in 12/08/18 showed normal global systolic function , EF 55-60% , Grade I diastolic dysfunctio n , mild aortic regurgitat ion , mild mitral regurgitat ion , mild to moderate tricuspid regurgitat ion , mild pulmonary hypertensi on. Normal aortic root dimensions 3.3 to 2.9 cm. Had Echo 03/03/2017: The aortic root and ascending aorta are dilated measuring up to 4.0 cm. Consider CTA chest to assess aortic root dimensions , with variable mild enlargemen t on prior echos. Aortic efrain ve regurgitation [id number] I35.1 Mild AI. Had ECHO 10/08/20: LV chamber size is normal, LV wall thickness is mildly increased, the estimated LVEF is 55-60%(nor mal), LV relaxation is impaired, there is mild aortic regurgitat ion, there is mild thickening of the mitral valve anterior leaflet, there is a dense posterior mitral annular calcificat ion, there is mild mitral regurgitat ion, there is mild tricuspid regurgitat ion, there is mild pulmonic regurgitat ion, the ascending aorta is mildly dilated, there is a trace pericardia l effusion. Had ECHO done in 12/08/18 showed normal global systolic function , EF 55-60% , Grade I diastolic dysfunctio n , mild aortic regurgitat ion , mild mitral regurgitat ion , mild to moderate tricuspid regurgitat ion , mild pulmonary hypertensi on . Had Echo 03/03/2017 The LV size is normal. There is moderate concentric LV hypertroph y. Overall LVSF id normal with an EF between 65-70%. The LVEDP is elevated. The left atrium is mildly dilated. Aortic valve is trileaflet and is mildly thickened. There is mild to moderate aortic regurgitat ion. Mild mitral regurgitat ion is present. Mild thickening of the anterior mitral valve leaflet. Mild to moderate tricuspid regurgitat ion present. The right ventricula r systolic pressure as measured by doppler is 37.9 mmHg. Mild pulmonic valve regurgitat ion. The aortic root and ascending aorta are dilated measuring up to 4.0 cm. Obtain echo to evaluate for structural /functiona l disease, reassess AI. Obstructiv e sleep apnea syndrome [id number] G47.33 Reports increased daytime somnolence and fatigue, with snoring. Has mild pulm. HTN. Obtained home sleep study 01/19/19 with moderate ELISEO: Sleep study 01/19/2019 Patient underwent a onenight home sleep test (with respirator y effort belt) and by behavioral criteria, slept for approximat gris 6.1 hours, with a sleep latency of 9 minutes and a sleep efficiency of 86.3%. Moderate sleep disordered breathing (AHI=27) is noted based on a 4% hypopnea desaturati on criteria. The patient slept supine 21.8% of the night based on valid recording time of 6.06 hours and is 1.6 times as likely to have apneas/ hypopneas when supine. The apneas/hyp opneas are accompanie d by mild oxygen desaturati on (percent time below 90% SpO2:7.1% Min SpO2:7.1%. Min SpO2:81.2% ). The average desaturati on across all sleep disordered breathing events is 4.2%. Snoring occurs for 38.8% (30 dB) of the study, 14.4% is very loud. The mean pulse rate is 70 BPM, with infrequent pulse rate variabilit y (30 events with >=6 BPM increase/d ecrease per hour). Began CPAP, but was intolerant of CPAP. Patient has oral device for ELISEO since intolerant of CPAP. She previously stopped VitB12 energy supplement which had 150 mg caffeine. Reports increased fatigue for 3 months. She sleeps 12 hours a day. She reports using her ELISEO oral device previously but has been unable to wear it for 3 months due to pointy surfaces. Resumed oral device late August 2020, with less subsequent fatigue. Encouraged patient to have oral device adjusted. Given increased fatigue and history of mild pulm. HTN, obtained echo 10/08/20 with Normal RVSP. Had ECHO 10/08/20: LV chamber size is normal, LV wall thickness is mildly increased, the estimated LVEF is 55-60%(nor mal), LV relaxation is impaired, there is mild aortic regurgitat ion, there is mild thickening of the mitral valve anterior leaflet, there is a dense posterior mitral annular calcificat ion, there is mild mitral regurgitat ion, there is mild tricuspid regurgitat ion, there is mild pulmonic regurgitat ion, the ascending aorta is mildly dilated, there is a trace pericardia l effusion. Normal RVSP. Dyspnea on exertion [id number] R06.09 Patient presents with exertional dyspnea which can be an anginal equivalent and exertional fatigue. She has known CAD last evaluated 2011 with stress testing. Given the history, exam findings and high cardiac risk factors with DM, I feel additional investigat ion is warranted. I have made arrangemen ts in the near future for an exercise stress nuclear test. The procedure was discussed with the patient, and risks, benefits, and alternativ e options were explained. Appropriat e labwork has been performed recently, therefore I have not made arrangemen ts for further testing. I have asked the patient to curtail exercise and activities until our investigat ion is complete. I have made the following adjustment s to the present medical regimen. Had [place] stress 05/10/2012 : Normal rest and pharmacolo gic stress myocardial perfusion. Normal LV size and systolic function. Had LHC 06/30/2006 Normal size left ventricle. LVSF is normal. Elevated left ventricula r systolic and diastolic pressures post angiograph ically. Mild ectasia in the right coronary artery, and 20-30% disease in the proximal segment. Had ECHO 10/08/20: LV chamber size is normal, LV wall thickness is mildly increased, the estimated LVEF is 55-60%(nor mal), LV relaxation is impaired, there is mild aortic regurgitat ion, there is mild thickening of the mitral valve anterior leaflet, there is a dense posterior mitral annular calcificat ion, there is mild mitral regurgitat ion, there is mild tricuspid regurgitat ion, there is mild pulmonic regurgitat ion, the ascending aorta is mildly dilated, there is a trace pericardia l effusion. Had 09/21/20:N a 143,K 4.2,Cl 106,Co2 27,Glu 111,Bun 19,Cr 0.9,AST 18,ALT 10, Mg 1.7, TSH 0.72 09/21/20:T C 128,TG 107,HDL 52,LDL 55. 09/21/20:W BC 6.6,RBC 3.97,HGB 10.7,HCT 33.3,PLT 316. [id number] MD Gordon Corcoran Office [address] [facility] [address] [place] [address] 11/29/2020 09:48:35 11/29/2020 10:41:14 Dyspnea on exertion [id number] R06.09 Reports stable exertional dyspnea. Had treadmill nuclear stress test 11/04/20: Negative stress test for ischemia. Normal LV systolic function. Artifact noted. Exercise tolerance: Poor. Compared to last study in 05/10/12, there are no changes. LVEF >60%. Had [place] stress 05/10/2012 : Normal rest and pharmacolo gic stress myocardial perfusion. Normal LV size and systolic function. Had C 06/30/2006 Normal size left ventricle. LVSF is normal. Elevated left ventricula r systolic and diastolic pressures post angiograph ically. Mild ectasia in the right coronary artery, and 20-30% disease in the proximal segment. Had ECHO 10/08/20: LV chamber size is normal, LV wall thickness is mildly increased, the estimated LVEF is 55-60%(nor mal), LV relaxation is impaired, there is mild aortic regurgitat ion, there is mild thickening of the mitral valve anterior leaflet, there is a dense posterior mitral annular calcificat ion, there is mild mitral regurgitat ion, there is mild tricuspid regurgitat ion, there is mild pulmonic regurgitat ion, the ascending aorta is mildly dilated, there is a trace pericardia l effusion. Had 09/21/20:N a 143,K 4.2,Cl 106,Co2 27,Glu 111,Bun 19,Cr 0.9,AST 18,ALT 10, Mg 1.7, TSH 0.72 09/21/20:T C 128,TG 107,HDL 52,LDL 55. 09/21/20:W BC 6.6,RBC 3.97,HGB 10.7,HCT 33.3,PLT 316. Increase water. Coronary arteriosclerosis [id number] I25.10 Stable. Mild. Had treadmill nuclear stress test 11/04/20: Negative stress test for ischemia. Normal LV systolic function. Artifact noted. Exercise tolerance: Poor. Compared to last study in 05/10/12, there are no changes. LVEF >60% Had [place] stress 05/10/2012 : Normal rest and pharmacolo gic stress myocardial perfusion. Normal LV size and systolic function. Had C 06/30/2006 Normal size left ventricle. LVSF is normal. Elevated left ventricula r systolic and diastolic pressures post angiograph ically. Mild ectasia in the right coronary artery, and 20-30% disease in the proximal segment Changed metoprolol tartrate 50 mg qd to metoprolol succinate 50 mg qd 11/22/18. Continue statin. Resumed ASA 81 mg qd 11/22/18. Needs to keep LDL less than 70, and HDL more than 40. Essential hypertension [id number] I10 Has mild-moder ate LVH. Patient's blood pressure is well-contr olled on present medical therapy. Patient is tolerating , without difficulty , the current medication s. I have not made changes to the current regimen. Patient is advised to maintain a blood pressure diary. Patient was advised to eat a low-sodium diet (2 grams sodium or less daily). BP monitor. Increased to enalapril 20 mg qd 12/27/18, which was reduced to 10 mg qd by PCP 09/11/19. Had 01/20/2019 K 4.3, CR 0.8, MG 1.7 Began amlodipine 5 mg qd 02/07/19. Increased to amlodipine 10 mg qd 03/21/19. Hyperlipidemia [id number] E78.2 Patient's hyperlipid emia is well-contr olled on present medical therapy. Patient was advised to eat a low-fat diet. Patient is tolerating , without difficulty , the current medication s. I have not made changes to the current regimen. Needs to keep LDL less than 70, and HDL more than 40. Had LIPID 12/24/2018 TR 125 CH 153 HDL 60 LDL 68. Had LIPID 07/08/2019 TR 109 CH 132 HDL 58 LDL 52. Had 02/12/2020 : Cholestero l 141, Triglyceri lisy 131, HDl 56, LDL 59 . Had 09/21/20: TC 128, TG 107, HDL 52, LDL 55. Continue statin. Diabetes mellitus [id number] E11.59 Discussed importance of tight glycemic control to minimize cardiovasc ular disease progressio n. Aortic suzie t dilatation [id number] I77.810 Mild. Had ECHO 10/08/20: LV chamber size is normal, LV wall thickness is mildly increased, the estimated LVEF is 55-60%(nor mal), LV relaxation is impaired, there is mild aortic regurgitat ion, there is mild thickening of the mitral valve anterior leaflet, there is a dense posterior mitral annular calcificat ion, there is mild mitral regurgitat ion, there is mild tricuspid regurgitat ion, there is mild pulmonic regurgitat ion, the ascending aorta is mildly dilated, there is a trace pericardia l effusion. Had ECHO done in 12/08/18 showed normal global systolic function , EF 55-60% , Grade I diastolic dysfunctio n , mild aortic regurgitat ion , mild mitral regurgitat ion , mild to moderate tricuspid regurgitat ion , mild pulmonary hypertensi on. Normal aortic root dimensions 3.3 to 2.9 cm. Had Echo 03/03/2017: The aortic root and ascending aorta are dilated measuring up to 4.0 cm. Obtain CTA chest to assess aortic root dimensions , with variable mild ascending aorta dilatation on prior echos. Aortic efrain ve regurgitation [id number] I35.1 Mild AI. Had ECHO 10/08/20: LV chamber size is normal, LV wall thickness is mildly increased, the estimated LVEF is 55-60%(nor mal), LV relaxation is impaired, there is mild aortic regurgitat ion, there is mild thickening of the mitral valve anterior leaflet, there is a dense posterior mitral annular calcificat ion, there is mild mitral regurgitat ion, there is mild tricuspid regurgitat ion, there is mild pulmonic regurgitat ion, the ascending aorta is mildly dilated, there is a trace pericardia l effusion. Had ECHO done in 12/08/18 showed normal global systolic function , EF 55-60% , Grade I diastolic dysfunctio n , mild aortic regurgitat ion , mild mitral regurgitat ion , mild to moderate tricuspid regurgitat ion , mild pulmonary hypertensi on . Had Echo 03/03/2017 The LV size is normal. There is moderate concentric LV hypertroph y. Overall LVSF id normal with an EF between 65-70%. The LVEDP is elevated. The left atrium is mildly dilated. Aortic valve is trileaflet and is mildly thickened. There is mild to moderate aortic regurgitat ion. Mild mitral regurgitat ion is present. Mild thickening of the anterior mitral valve leaflet. Mild to moderate tricuspid regurgitat ion present. The right ventricula r systolic pressure as measured by doppler is 37.9 mmHg. Mild pulmonic valve regurgitat ion. The aortic root and ascending aorta are dilated measuring up to 4.0 cm. Obstructiv e sleep apnea syndrome [id number] G47.33 Reports increased daytime somnolence and fatigue, with snoring. Has mild pulm. HTN. Obtained home sleep study 01/19/19 with moderate ELISEO: Sleep study 01/19/2019 Patient underwent a onenight home sleep test (with respirator y effort belt) and by behavioral criteria, slept for approximat gris 6.1 hours, with a sleep latency of 9 minutes and a sleep efficiency of 86.3%. Moderate sleep disordered breathing (AHI=27) is noted based on a 4% hypopnea desaturati on criteria. The patient slept supine 21.8% of the night based on valid recording time of 6.06 hours and is 1.6 times as likely to have apneas/ hypopneas when supine. The apneas/hyp opneas are accompanie d by mild oxygen desaturati on (percent time below 90% SpO2:7.1% Min SpO2:7.1%. Min SpO2:81.2% ). The average desaturati on across all sleep disordered breathing events is 4.2%. Snoring occurs for 38.8% (30 dB) of the study, 14.4% is very loud. The mean pulse rate is 70 BPM, with infrequent pulse rate variabilit y (30 events with >=6 BPM increase/d ecrease per hour). Began CPAP, but was intolerant of CPAP. Patient has oral device for ELISEO since intolerant of CPAP. She previously stopped VitB12 energy supplement which had 150 mg caffeine. Reports increased fatigue for 3 months. She sleeps 12 hours a day. She reports using her ELISEO oral device previously but has been unable to wear it for 3 months due to pointy surfaces. Resumed oral device late August 2020, with less subsequent fatigue. Encouraged patient to have oral device adjusted. Given increased fatigue and history of mild pulm. HTN, obtained echo 10/08/20 with Normal RVSP. Had ECHO 10/08/20: LV chamber size is normal, LV wall thickness is mildly increased, the estimated LVEF is 55-60%(nor mal), LV relaxation is impaired, there is mild aortic regurgitat ion, there is mild thickening of the mitral valve anterior leaflet, there is a dense posterior mitral annular calcificat ion, there is mild mitral regurgitat ion, there is mild tricuspid regurgitat ion, there is mild pulmonic regurgitat ion, the ascending aorta is mildly dilated, there is a trace pericardia l effusion. Normal RVSP. [id number] MD Gordon Corcoran Office [address] [facility] [address] [place] [address] 01/17/2021 10:03:59 01/17/2021 11:28:34 Dyspnea on exertion [id number] R06.09 Reports stable exertional dyspnea. Had treadmill nuclear stress test 11/04/20: Negative stress test for ischemia. Normal LV systolic function. Artifact noted. Exercise tolerance: Poor. Compared to last study in 05/10/12, there are no changes. LVEF >60%. Had [place] stress 05/10/2012 : Normal rest and pharmacolo gic stress myocardial perfusion. Normal LV size and systolic function. Had LHC 06/30/2006 Normal size left ventricle. LVSF is normal. Elevated left ventricula r systolic and diastolic pressures post angiograph ically. Mild ectasia in the right coronary artery, and 20-30% disease in the proximal segment. Had ECHO 10/08/20: LV chamber size is normal, LV wall thickness is mildly increased, the estimated LVEF is 55-60%(nor mal), LV relaxation is impaired, there is mild aortic regurgitat ion, there is mild thickening of the mitral valve anterior leaflet, there is a dense posterior mitral annular calcificat ion, there is mild mitral regurgitat ion, there is mild tricuspid regurgitat ion, there is mild pulmonic regurgitat ion, the ascending aorta is mildly dilated, there is a trace pericardia l effusion. Had 09/21/20:N a 143,K 4.2,Cl 106,Co2 27,Glu 111,Bun 19,Cr 0.9,AST 18,ALT 10, Mg 1.7, TSH 0.72 09/21/20:T C 128,TG 107,HDL 52,LDL 55. 09/21/20:W BC 6.6,RBC 3.97,HGB 10.7,HCT 33.3,PLT 316. Increase walking. Coronary arteriosclerosis [id number] I25.10 Stable. Mild. Had treadmill nuclear stress test 11/04/20: Negative stress test for ischemia. Normal LV systolic function. Artifact noted. Exercise tolerance: Poor. Compared to last study in 05/10/12, there are no changes. LVEF >60% Had [place] stress 05/10/2012 : Normal rest and pharmacolo gic stress myocardial perfusion. Normal LV size and systolic function. Had LHC 06/30/2006 Normal size left ventricle. LVSF is normal. Elevated left ventricula r systolic and diastolic pressures post angiograph ically. Mild ectasia in the right coronary artery, and 20-30% disease in the proximal segment Changed metoprolol tartrate 50 mg qd to metoprolol succinate 50 mg qd 11/22/18. Continue statin. Resumed ASA 81 mg qd 11/22/18. Needs to keep LDL less than 70, and HDL more than 40. Essential hypertension [id number] I10 Has mild-moder ate LVH. Patient's blood pressure is well-contr olled on present medical therapy. Patient is tolerating , without difficulty , the current medication s. I have not made changes to the current regimen. Patient is advised to maintain a blood pressure diary. Patient was advised to eat a low-sodium diet (2 grams sodium or less daily). BP monitor. Increased to enalapril 20 mg qd 12/27/18, which was reduced to 10 mg qd by PCP 09/11/19. Had 01/20/2019 K 4.3, CR 0.8, MG 1.7 Began amlodipine 5 mg qd 02/07/19. Increased to amlodipine 10 mg qd 03/21/19. Hyperlipidemia [id number] E78.2 Patient's hyperlipid yessy is well-contr olled on present medical therapy. Patient was advised to eat a low-fat diet. Patient is tolerating , without difficulty , the current medication s. I have not made changes to the current regimen. Needs to keep LDL less than 70, and HDL more than 40. Had LIPID 12/24/2018 TR 125 CH 153 HDL 60 LDL 68. Had LIPID 07/08/2019 TR 109 CH 132 HDL 58 LDL 52. Had 02/12/2020 : Cholestero l 141, Triglyceri lisy 131, HDl 56, LDL 59 . Had 09/21/20: TC 128, TG 107, HDL 52, LDL 55. Continue statin. Diabetes mellitus [id number] E11.59 Discussed importance of tight glycemic control to minimize cardiovasc ular disease progressio n. Aortic suzie t dilatation [id number] I77.810 Mild. 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 Had ECHO 10/08/20: LV chamber size is normal, LV wall thickness is mildly increased, the estimated LVEF is 55-60%(nor mal), LV relaxation is impaired, there is mild aortic regurgitat ion, there is mild thickening of the mitral valve anterior leaflet, there is a dense posterior mitral annular calcificat ion, there is mild mitral regurgitat ion, there is mild tricuspid regurgitat ion, there is mild pulmonic regurgitat ion, the ascending aorta is mildly dilated, there is a trace pericardia l effusion. Had ECHO done in 12/08/18 showed normal global systolic function , EF 55-60% , Grade I diastolic dysfunctio n , mild aortic regurgitat ion , mild mitral regurgitat ion , mild to moderate tricuspid regurgitat ion , mild pulmonary hypertensi on. Normal aortic root dimensions 3.3 to 2.9 cm. Had Echo 03/03/2017: The aortic root and ascending aorta are dilated measuring up to 4.0 cm. Obtain yearly CTA chest to assess aortic root dimensions , with mild ascending aorta dilatation . Aortic efrain ve regurgitation [id number] I35.1 Mild AI. Had ECHO 10/08/20: LV chamber size is normal, LV wall thickness is mildly increased, the estimated LVEF is 55-60%(nor mal), LV relaxation is impaired, there is mild aortic regurgitat ion, there is mild thickening of the mitral valve anterior leaflet, there is a dense posterior mitral annular calcificat ion, there is mild mitral regurgitat ion, there is mild tricuspid regurgitat ion, there is mild pulmonic regurgitat ion, the ascending aorta is mildly dilated, there is a trace pericardia l effusion. Had ECHO done in 12/08/18 showed normal global systolic function , EF 55-60% , Grade I diastolic dysfunctio n , mild aortic regurgitat ion , mild mitral regurgitat ion , mild to moderate tricuspid regurgitat ion , mild pulmonary hypertensi on . Had Echo 03/03/2017 The LV size is normal. There is moderate concentric LV hypertroph y. Overall LVSF id normal with an EF between 65-70%. The LVEDP is elevated. The left atrium is mildly dilated. Aortic valve is trileaflet and is mildly thickened. There is mild to moderate aortic regurgitat ion. Mild mitral regurgitat ion is present. Mild thickening of the anterior mitral valve leaflet. Mild to moderate tricuspid regurgitat ion present. The right ventricula r systolic pressure as measured by doppler is 37.9 mmHg. Mild pulmonic valve regurgitat ion. The aortic root and ascending aorta are dilated measuring up to 4.0 cm. Obstructiv e sleep apnea syndrome [id number] G47.33 Reported increased daytime somnolence and fatigue, with snoring. Had prior mild pulm. HTN. Obtained home sleep study 01/19/19 with moderate ELISEO: Had ECHO 10/08/20: LV chamber size is normal, LV wall thickness is mildly increased, the estimated LVEF is 55-60%(nor mal), LV relaxation is impaired, there is mild aortic regurgitat ion, there is mild thickening of the mitral valve anterior leaflet, there is a dense posterior mitral annular calcificat ion, there is mild mitral regurgitat ion, there is mild tricuspid regurgitat ion, there is mild pulmonic regurgitat ion, the ascending aorta is mildly dilated, there is a trace pericardia l effusion. Normal RVSP. Sleep study 01/19/2019 Patient underwent a onenight home sleep test (with respirator y effort belt) and by behavioral criteria, slept for approximat gris 6.1 hours, with a sleep latency of 9 minutes and a sleep efficiency of 86.3%. Moderate sleep disordered breathing (AHI=27) is noted based on a 4% hypopnea desaturati on criteria. The patient slept supine 21.8% of the night based on valid recording time of 6.06 hours and is 1.6 times as likely to have apneas/ hypopneas when supine. The apneas/hyp opneas are accompanie d by mild oxygen desaturati on (percent time below 90% SpO2:7.1% Min SpO2:7.1%. Min SpO2:81.2% ). The average desaturati on across all sleep disordered breathing events is 4.2%. Snoring occurs for 38.8% (30 dB) of the study, 14.4% is very loud. The mean pulse rate is 70 BPM, with infrequent pulse rate variabilit y (30 events with >=6 BPM increase/d ecrease per hour). Began CPAP, but was intolerant of CPAP. Patient has oral device for ELISEO since intolerant of CPAP. She previously stopped VitB12 energy supplement which had 150 mg caffeine. Reports increased fatigue for 3 months. She sleeps 12 hours a day. She reports using her ELISEO oral device previously but has been unable to wear it for 3 months due to pointy surfaces. Resumed oral device late August 2020, with less subsequent fatigue. Encouraged patient to have oral device adjusted. Given increased fatigue and history of mild pulm. HTN, obtained echo 10/08/20 with Normal RVSP. [id number] MD Gordon Corcoran Office [address] [facility] [place] [address] 05/02/2021 09:47:19 05/02/2021 10:55:59 Dyspnea on exertion [id number] R06.09 Reports stable exertional dyspnea. Had treadmill nuclear stress test 11/04/20: Negative stress test for ischemia. Normal LV systolic function. Artifact noted. Exercise tolerance: Poor. Compared to last study in 05/10/12, there are no changes. LVEF >60%. Had [place] stress 05/10/2012 : Normal rest and pharmacolo gic stress myocardial perfusion. Normal LV size and systolic function. Had [facility] 06/30/2006 Normal size left ventricle. LVSF is normal. Elevated left ventricula r systolic and diastolic pressures post angiograph ically. Mild ectasia in the right coronary artery, and 20-30% disease in the proximal segment. Had ECHO 10/08/20: LV chamber size is normal, LV wall thickness is mildly increased, the estimated LVEF is 55-60%(nor mal), LV relaxation is impaired, there is mild aortic regurgitat ion, there is mild thickening of the mitral valve anterior leaflet, there is a dense posterior mitral annular calcificat ion, there is mild mitral regurgitat ion, there is mild tricuspid regurgitat ion, there is mild pulmonic regurgitat ion, the ascending aorta is mildly dilated, there is a trace pericardia l effusion. Had 09/21/20:N a 143,K 4.2,Cl 106,Co2 27,Glu 111,Bun 19,Cr 0.9,AST 18,ALT 10, Mg 1.7, TSH 0.72 09/21/20:T C 128,TG 107,HDL 52,LDL 55. 09/21/20:W BC 6.6,RBC 3.97,HGB 10.7,HCT 33.3,PLT 316. Obtain labs FLP/CMP 03/2021. Increase walking. Coronary arteriosclerosis [id number] I25.10 Stable. Mild. Had treadmill nuclear stress test 11/04/20: Negative stress test for ischemia. Normal LV systolic function. Artifact noted. Exercise tolerance: Poor. Compared to last study in 05/10/12, there are no changes. LVEF >60% Had [facility] stress 05/10/2012 : Normal rest and pharmacolo gic stress myocardial perfusion. Normal LV size and systolic function. Had [facility] 06/30/2006 Normal size left ventricle. LVSF is normal. Elevated left ventricula r systolic and diastolic pressures post angiograph ically. Mild ectasia in the right coronary artery, and 20-30% disease in the proximal segment Changed metoprolol tartrate 50 mg qd to metoprolol succinate 50 mg qd 11/22/18. Continue statin. Resumed ASA 81 mg qd 11/22/18. Needs to keep LDL less than 70, and HDL more than 40. Essential hypertension [id number] I10 Has mild-moder ate LVH. Patient's blood pressure is not well-contr olled on present medical therapy. Patient is tolerating , without difficulty , the current medication s. I have made the following changes to the current regimen. Patient is advised to maintain a blood pressure diary. Patient was advised to eat a low-sodium diet (2 grams sodium or less daily). BP monitor. Increased to enalapril 20 mg qd 12/27/18, which was reduced to 10 mg qd by PCP 09/11/19. Had 01/20/2019 K 4.3, CR 0.8, MG 1.7 Began amlodipine 5 mg qd 02/07/19. Increased to amlodipine 10 mg qd 03/21/19. Increased to enalapril 20 mg qd 05/02/21. BMP, Mg in 3 weeks. Hyperlipidemia [id number] E78.2 Patient's hyperlipid emia is well-contr olled on present medical therapy. Patient was advised to eat a low-fat diet. Patient is tolerating , without difficulty , the current medication s. I have not made changes to the current regimen. Needs to keep LDL less than 70, and HDL more than 40. Had LIPID 12/24/2018 TR 125 CH 153 HDL 60 LDL 68. Had LIPID 07/08/2019 TR 109 CH 132 HDL 58 LDL 52. Had 02/12/2020 : Cholestero l 141, Triglyceri lisy 131, HDl 56, LDL 59 . Had 09/21/20: TC 128, TG 107, HDL 52, LDL 55. Continue statin. Diabetes mellitus [id number] E11.59 Discussed importance of tight glycemic control to minimize cardiovasc ular disease progressio n. Aortic suzie t dilatation [id number] I77.810 Mild. 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 Had ECHO 10/08/20: LV chamber size is normal, LV wall thickness is mildly increased, the estimated LVEF is 55-60%(nor mal), LV relaxation is impaired, there is mild aortic regurgitat ion, there is mild thickening of the mitral valve anterior leaflet, there is a dense posterior mitral annular calcificat ion, there is mild mitral regurgitat ion, there is mild tricuspid regurgitat ion, there is mild pulmonic regurgitat ion, the ascending aorta is mildly dilated, there is a trace pericardia l effusion. Had ECHO done in 12/08/18 showed normal global systolic function , EF 55-60% , Grade I diastolic dysfunctio n , mild aortic regurgitat ion , mild mitral regurgitat ion , mild to moderate tricuspid regurgitat ion , mild pulmonary hypertensi on. Normal aortic root dimensions 3.3 to 2.9 cm. Had Echo 03/03/2017: The aortic root and ascending aorta are dilated measuring up to 4.0 cm. Obtain yearly CTA chest to assess aortic root dimensions , with mild ascending aorta dilatation . Aortic efrain ve regurgitation [id number] I35.1 Mild AI. Had ECHO 10/08/20: LV chamber size is normal, LV wall thickness is mildly increased, the estimated LVEF is 55-60%(nor mal), LV relaxation is impaired, there is mild aortic regurgitat ion, there is mild thickening of the mitral valve anterior leaflet, there is a dense posterior mitral annular calcificat ion, there is mild mitral regurgitat ion, there is mild tricuspid regurgitat ion, there is mild pulmonic regurgitat ion, the ascending aorta is mildly dilated, there is a trace pericardia l effusion. Had ECHO done in 12/08/18 showed normal global systolic function , EF 55-60% , Grade I diastolic dysfunctio n , mild aortic regurgitat ion , mild mitral regurgitat ion , mild to moderate tricuspid regurgitat ion , mild pulmonary hypertensi on . Had Echo 03/03/2017 The LV size is normal. There is moderate concentric LV hypertroph y. Overall LVSF id normal with an EF between 65-70%. The LVEDP is elevated. The left atrium is mildly dilated. Aortic valve is trileaflet and is mildly thickened. There is mild to moderate aortic regurgitat ion. Mild mitral regurgitat ion is present. Mild thickening of the anterior mitral valve leaflet. Mild to moderate tricuspid regurgitat ion present. The right ventricula r systolic pressure as measured by doppler is 37.9 mmHg. Mild pulmonic valve regurgitat ion. The aortic root and ascending aorta are dilated measuring up to 4.0 cm. Obstructiv e sleep apnea syndrome [id number] G47.33 Reported increased daytime somnolence and fatigue, with snoring. Had prior mild pulm. HTN. Obtained home sleep study 01/19/19 with moderate ELISEO: Had ECHO 10/08/20: LV chamber size is normal, LV wall thickness is mildly increased, the estimated LVEF is 55-60%(nor mal), LV relaxation is impaired, there is mild aortic regurgitat ion, there is mild thickening of the mitral valve anterior leaflet, there is a dense posterior mitral annular calcificat ion, there is mild mitral regurgitat ion, there is mild tricuspid regurgitat ion, there is mild pulmonic regurgitat ion, the ascending aorta is mildly dilated, there is a trace pericardia l effusion. Normal RVSP. Sleep study 01/19/2019 Patient underwent a onenight home sleep test (with respirator y effort belt) and by behavioral criteria, slept for approximat gris 6.1 hours, with a sleep latency of 9 minutes and a sleep efficiency of 86.3%. Moderate sleep disordered breathing (AHI=27) is noted based on a 4% hypopnea desaturati on criteria. The patient slept supine 21.8% of the night based on valid recording time of 6.06 hours and is 1.6 times as likely to have apneas/ hypopneas when supine. The apneas/hyp opneas are accompanie d by mild oxygen desaturati on (percent time below 90% SpO2:7.1% Min SpO2:7.1%. Min SpO2:81.2% ). The average desaturati on across all sleep disordered breathing events is 4.2%. Snoring occurs for 38.8% (30 dB) of the study, 14.4% is very loud. The mean pulse rate is 70 BPM, with infrequent pulse rate variabilit y (30 events with >=6 BPM increase/d ecrease per hour). Began CPAP, but was intolerant of CPAP. Patient has oral device for ELISEO since intolerant of CPAP. She previously stopped VitB12 energy supplement which had 150 mg caffeine. Reports increased fatigue for 3 months. She sleeps 12 hours a day. She reports using her ELISEO oral device previously but has been unable to wear it for 3 months due to pointy surfaces. Resumed oral device late August 2020, with less subsequent fatigue. Encouraged patient to have oral device adjusted. Given increased fatigue and history of mild pulm. HTN, obtained echo 10/08/20 with Normal RVSP. [id number] MD [facility] [address] [place] [phone] 10/31/2021 10:26:30 10/31/2021 11:43:12 Dyspnea on exertion [id number] R06.09 Reports stable exertional dyspnea. Had treadmill nuclear stress test 11/04/20: Negative stress test for ischemia. Normal LV systolic function. Artifact noted. Exercise tolerance: Poor. Compared to last study in 05/10/12, there are no changes. LVEF >60%. Had [facility] stress 05/10/2012 : Normal rest and pharmacolo gic stress myocardial perfusion. Normal LV size and systolic function. Had [facility] 06/30/2006 Normal size left ventricle. LVSF is normal. Elevated left ventricula r systolic and diastolic pressures post angiograph ically. Mild ectasia in the right coronary artery, and 20-30% disease in the proximal segment. Had ECHO 10/08/20: LV chamber size is normal, LV wall thickness is mildly increased, the estimated LVEF is 55-60%(nor mal), LV relaxation is impaired, there is mild aortic regurgitat ion, there is mild thickening of the mitral valve anterior leaflet, there is a dense posterior mitral annular calcificat ion, there is mild mitral regurgitat ion, there is mild tricuspid regurgitat ion, there is mild pulmonic regurgitat ion, the ascending aorta is mildly dilated, there is a trace pericardia l effusion. Had 09/21/20:N a 143,K 4.2,Cl 106,Co2 27,Glu 111,Bun 19,Cr 0.9,AST 18,ALT 10, Mg 1.7, TSH 0.72 09/21/20:T C 128,TG 107,HDL 52,LDL 55. 09/21/20:W BC 6.6,RBC 3.97,HGB 10.7,HCT 33.3,PLT 316. Obtain labs FLP/CMP 03/2021. Increase walking. Coronary arteriosclerosis [id number] I25.10 Stable. Mild. Had treadmill nuclear stress test 11/04/20: Negative stress test for ischemia. Normal LV systolic function. Artifact noted. Exercise tolerance: Poor. Compared to last study in 05/10/12, there are no changes. LVEF >60% Had [facility] stress 05/10/2012 : Normal rest and pharmacolo gic stress myocardial perfusion. Normal LV size and systolic function. Had [facility] 06/30/2006 Normal size left ventricle. LVSF is normal. Elevated left ventricula r systolic and diastolic pressures post angiograph ically. Mild ectasia in the right coronary artery, and 20-30% disease in the proximal segment Changed metoprolol tartrate 50 mg qd to metoprolol succinate 50 mg qd 11/22/18. Continue statin. Resumed ASA 81 mg qd 11/22/18. Needs to keep LDL less than 70, and HDL more than 40. Essential hypertension [id number] I10 Has mild-moder ate LVH. Patient's blood pressure is well-contr olled on present medical therapy. Patient is tolerating , without difficulty , the current medication s. I have made the following changes to the current regimen. Patient is advised to maintain a blood pressure diary. Patient was advised to eat a low-sodium diet (2 grams sodium or less daily). BP monitor. Increased to enalapril 20 mg qd 12/27/18, which was reduced to 10 mg qd by PCP 09/11/19. Had 01/20/2019 K 4.3, CR 0.8, MG 1.7 Began amlodipine 5 mg qd 02/07/19. Increased to amlodipine 10 mg qd 03/21/19. Increased to enalapril 20 mg qd 05/02/21. Had 06-30-2021 : CMP- NA 140 K 3.7 CL 105 BUN 32 CR 0.90 GL 140 MAG 1.7 CA 9.2 TSH-0.36 [id number] Hyperlipidemia [id number] E78.2 Patient's hyperlipid emia is well-contr olled on present medical therapy. Patient was advised to eat a low-fat diet. Patient is tolerating , without difficulty , the current medication s. I have not made changes to the current regimen. Needs to keep LDL less than 70, and HDL more than 40. Had LIPID 12/24/2018 TR 125 CH 153 HDL 60 LDL 68. Had LIPID 07/08/2019 TR 109 CH 132 HDL 58 LDL 52. Had 02/12/2020 : Cholestero l 141, Triglyceri lisy 131, HDl 56, LDL 59 . Had 09/21/20: TC 128, TG 107, HDL 52, LDL 55. Continue statin. Diabetes mellitus 118760 09 E11.59 Discussed importance of tight glycemic control to minimize cardiovasc ular disease progressio n. Aortic suzie t dilatation [id number] I77.810 Mild. 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 Had ECHO 10/08/20: LV chamber size is normal, LV wall thickness is mildly increased, the estimated LVEF is 55-60%(nor mal), LV relaxation is impaired, there is mild aortic regurgitat ion, there is mild thickening of the mitral valve anterior leaflet, there is a dense posterior mitral annular calcificat ion, there is mild mitral regurgitat ion, there is mild tricuspid regurgitat ion, there is mild pulmonic regurgitat ion, the ascending aorta is mildly dilated, there is a trace pericardia l effusion. Had ECHO done in 12/08/18 showed normal global systolic function , EF 55-60% , Grade I diastolic dysfunctio n , mild aortic regurgitat ion , mild mitral regurgitat ion , mild to moderate tricuspid regurgitat ion , mild pulmonary hypertensi on. Normal aortic root dimensions 3.3 to 2.9 cm. Had Echo 03/03/2017: The aortic root and ascending aorta are dilated measuring up to 4.0 cm. Obtain yearly CTA chest to assess aortic root dimensions , with mild ascending aorta dilatation . Aortic efrain ve regurgitation [id number] I35.1 Mild AI. Had ECHO 10/08/20: LV chamber size is normal, LV wall thickness is mildly increased, the estimated LVEF is 55-60%(nor mal), LV relaxation is impaired, there is mild aortic regurgitat ion, there is mild thickening of the mitral valve anterior leaflet, there is a dense posterior mitral annular calcificat ion, there is mild mitral regurgitat ion, there is mild tricuspid regurgitat ion, there is mild pulmonic regurgitat ion, the ascending aorta is mildly dilated, there is a trace pericardia l effusion. Had ECHO done in 12/08/18 showed normal global systolic function , EF 55-60% , Grade I diastolic dysfunctio n , mild aortic regurgitat ion , mild mitral regurgitat ion , mild to moderate tricuspid regurgitat ion , mild pulmonary hypertensi on . Had Echo 03/03/2017 The LV size is normal. There is moderate concentric LV hypertroph y. Overall LVSF id normal with an EF between 65-70%. The LVEDP is elevated. The left atrium is mildly dilated. Aortic valve is trileaflet and is mildly thickened. There is mild to moderate aortic regurgitat ion. Mild mitral regurgitat ion is present. Mild thickening of the anterior mitral valve leaflet. Mild to moderate tricuspid regurgitat ion present. The right ventricula r systolic pressure as measured by doppler is 37.9 mmHg. Mild pulmonic valve regurgitat ion. The aortic root and ascending aorta are dilated measuring up to 4.0 cm. Obstructiv e sleep apnea syndrome [id number] G47.33 Reported increased daytime somnolence and fatigue, with snoring. Had prior mild pulm. HTN. Obtained home sleep study 01/19/19 with moderate ELISEO: Had ECHO 10/08/20: LV chamber size is normal, LV wall thickness is mildly increased, the estimated LVEF is 55-60%(nor mal), LV relaxation is impaired, there is mild aortic regurgitat ion, there is mild thickening of the mitral valve anterior leaflet, there is a dense posterior mitral annular calcificat ion, there is mild mitral regurgitat ion, there is mild tricuspid regurgitat ion, there is mild pulmonic regurgitat ion, the ascending aorta is mildly dilated, there is a trace pericardia l effusion. Normal RVSP. Sleep study 01/19/2019 Patient underwent a onenight home sleep test (with respirator y effort belt) and by behavioral criteria, slept for approximat gris 6.1 hours, with a sleep latency of 9 minutes and a sleep efficiency of 86.3%. Moderate sleep disordered breathing (AHI=27) is noted based on a 4% hypopnea desaturati on criteria. The patient slept supine 21.8% of the night based on valid recording time of 6.06 hours and is 1.6 times as likely to have apneas/ hypopneas when supine. The apneas/hyp opneas are accompanie d by mild oxygen desaturati on (percent time below 90% SpO2:7.1% Min SpO2:7.1%. Min SpO2:81.2% ). The average desaturati on across all sleep disordered breathing events is 4.2%. Snoring occurs for 38.8% (30 dB) of the study, 14.4% is very loud. The mean pulse rate is 70 BPM, with infrequent pulse rate variabilit y (30 events with >=6 BPM increase/d ecrease per hour). Began CPAP, but was intolerant of CPAP. Patient has oral device for ELISEO since intolerant of CPAP. She previously stopped VitB12 energy supplement which had 150 mg caffeine. Reports increased fatigue for 3 months. She sleeps 12 hours a day. She reports using her ELISEO oral device previously but has been unable to wear it for 3 months due to pointy surfaces. Resumed oral device late August 2020, with less subsequent fatigue. Encouraged patient to have oral device adjusted with [facility]. Increase compliance . Given increased fatigue and history of mild pulm. HTN, obtained echo 10/08/20 with Normal RVSP. [id number] MD [facility] [address] [place] [facility] [place] [address] 05/01/2022 09:50:29 05/01/2022 10:42:03 Dyspnea on exertion [id number] R06.09 Reports stable exertional dyspnea. Had treadmill nuclear stress test 11/04/20: Negative stress test for ischemia. Normal LV systolic function. Artifact noted. Exercise tolerance: Poor. Compared to last study in 05/10/12, there are no changes. LVEF >60%. Had [facility] stress 05/10/2012 : Normal rest and pharmacolo gic stress myocardial perfusion. Normal LV size and systolic function. Had [facility] 06/30/2006 Normal size left ventricle. LVSF is normal. Elevated left ventricula r systolic and diastolic pressures post angiograph ically. Mild ectasia in the right coronary artery, and 20-30% disease in the proximal segment. Had ECHO 10/08/20: LV chamber size is normal, LV wall thickness is mildly increased, the estimated LVEF is 55-60%(nor mal), LV relaxation is impaired, there is mild aortic regurgitat ion, there is mild thickening of the mitral valve anterior leaflet, there is a dense posterior mitral annular calcificat ion, there is mild mitral regurgitat ion, there is mild tricuspid regurgitat ion, there is mild pulmonic regurgitat ion, the ascending aorta is mildly dilated, there is a trace pericardia l effusion. Had 09/21/20:N a 143,K 4.2,Cl 106,Co2 27,Glu 111,Bun 19,Cr 0.9,AST 18,ALT 10, Mg 1.7, TSH 0.72 09/21/20:T C 128,TG 107,HDL 52,LDL 55. 09/21/20:W BC 6.6,RBC 3.97,HGB 10.7,HCT 33.3,PLT 316. Obtain labs FLP/CMP 03/2021. Increase walking. Coronary arteriosclerosis [id number] I25.10 Stable. Mild. Had treadmill nuclear stress test 11/04/20: Negative stress test for ischemia. Normal LV systolic function. Artifact noted. Exercise tolerance: Poor. Compared to last study in 05/10/12, there are no changes. LVEF >60% Had [facility] stress 05/10/2012 : Normal rest and pharmacolo gic stress myocardial perfusion. Normal LV size and systolic function. Had [facility] 06/30/2006 Normal size left ventricle. LVSF is normal. Elevated left ventricula r systolic and diastolic pressures post angiograph ically. Mild ectasia in the right coronary artery, and 20-30% disease in the proximal segment Changed metoprolol tartrate 50 mg qd to metoprolol succinate 50 mg qd 11/22/18. Continue statin. Resumed ASA 81 mg qd 11/22/18. Needs to keep LDL less than 70, and HDL more than 40. Essential hypertension 09984846 I10 Has mild-moder ate LVH. Patient's blood pressure is well-contr olled on present medical therapy. Patient is tolerating , without difficulty , the current medication s. I have made the following changes to the current regimen. Patient is advised to maintain a blood pressure diary. Patient was advised to eat a low-sodium diet (2 grams sodium or less daily). BP monitor. Increased to enalapril 20 mg qd 12/27/18, which was reduced to 10 mg qd by PCP 09/11/19. Had 01/20/2019 K 4.3, CR 0.8, MG 1.7 Began amlodipine 5 mg qd 02/07/19. Increased to amlodipine 10 mg qd 03/21/19. Increased to enalapril 20 mg qd 05/02/21. Had 06-30-2021 : CMP- NA 140 K 3.7 CL 105 BUN 32 CR 0.90 GL 140 MAG 1.7 CA 9.2 TSH-0.36 [id number] Hyperlipidemia [id number] E78.2 Patient's hyperlipid emia is well-contr olled on present medical therapy. Patient was advised to eat a low-fat diet. Patient is tolerating , without difficulty , the current medication s. I have not made changes to the current regimen. Needs to keep LDL less than 70, and HDL more than 40. Had LIPID 12/24/2018 TR 125 CH 153 HDL 60 LDL 68. Had LIPID 07/08/2019 TR 109 CH 132 HDL 58 LDL 52. Had 02/12/2020 : Cholestero l 141, Triglyceri lisy 131, HDl 56, LDL 59 . Had 09/21/20: TC 128, TG 107, HDL 52, LDL 55. Continue statin. Obtain FLP, CMP, Mg, TSH, CBC. Diabetes mellitus 401339 09 E11.59 Discussed importance of tight glycemic control to minimize cardiovasc ular disease progressio n. Aortic suzie t dilatation [id number] I77.810 Mild. 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 Had ECHO 10/08/20: LV chamber size is normal, LV wall thickness is mildly increased, the estimated LVEF is 55-60%(nor mal), LV relaxation is impaired, there is mild aortic regurgitat ion, there is mild thickening of the mitral valve anterior leaflet, there is a dense posterior mitral annular calcificat ion, there is mild mitral regurgitat ion, there is mild tricuspid regurgitat ion, there is mild pulmonic regurgitat ion, the ascending aorta is mildly dilated, there is a trace pericardia l effusion. Had ECHO done in 12/08/18 showed normal global systolic function , EF 55-60% , Grade I diastolic dysfunctio n , mild aortic regurgitat ion , mild mitral regurgitat ion , mild to moderate tricuspid regurgitat ion , mild pulmonary hypertensi on. Normal aortic root dimensions 3.3 to 2.9 cm. Had Echo 03/03/2017: The aortic root and ascending aorta are dilated measuring up to 4.0 cm. Obtain yearly CTA chest 04/2022 to assess aortic root dimensions , with mild ascending aorta dilatation . Aortic efrain ve regurgitation [id number] I35.1 Mild AI. Had ECHO 10/08/20: LV chamber size is normal, LV wall thickness is mildly increased, the estimated LVEF is 55-60%(nor mal), LV relaxation is impaired, there is mild aortic regurgitat ion, there is mild thickening of the mitral valve anterior leaflet, there is a dense posterior mitral annular calcificat ion, there is mild mitral regurgitat ion, there is mild tricuspid regurgitat ion, there is mild pulmonic regurgitat ion, the ascending aorta is mildly dilated, there is a trace pericardia l effusion. Had ECHO done in 12/08/18 showed normal global systolic function , EF 55-60% , Grade I diastolic dysfunctio n , mild aortic regurgitat ion , mild mitral regurgitat ion , mild to moderate tricuspid regurgitat ion , mild pulmonary hypertensi on . Had Echo 03/03/2017 The LV size is normal. There is moderate concentric LV hypertroph y. Overall LVSF id normal with an EF between 65-70%. The LVEDP is elevated. The left atrium is mildly dilated. Aortic valve is trileaflet and is mildly thickened. There is mild to moderate aortic regurgitat ion. Mild mitral regurgitat ion is present. Mild thickening of the anterior mitral valve leaflet. Mild to moderate tricuspid regurgitat ion present. The right ventricula r systolic pressure as measured by doppler is 37.9 mmHg. Mild pulmonic valve regurgitat ion. The aortic root and ascending aorta are dilated measuring up to 4.0 cm. Obtain echo to evaluate for structural /functiona l disease. Obstructiv e sleep apnea syndrome [id number] G47.33 Reported increased daytime somnolence and fatigue, with snoring. Had prior mild pulm. HTN. Obtained home sleep study 01/19/19 with moderate ELISEO: Had ECHO 10/08/20: LV chamber size is normal, LV wall thickness is mildly increased, the estimated LVEF is 55-60%(nor mal), LV relaxation is impaired, there is mild aortic regurgitat ion, there is mild thickening of the mitral valve anterior leaflet, there is a dense posterior mitral annular calcificat ion, there is mild mitral regurgitat ion, there is mild tricuspid regurgitat ion, there is mild pulmonic regurgitat ion, the ascending aorta is mildly dilated, there is a trace pericardia l effusion. Normal RVSP. Sleep study 01/19/2019 Patient underwent a onenight home sleep test (with respirator y effort belt) and by behavioral criteria, slept for approximat gris 6.1 hours, with a sleep latency of 9 minutes and a sleep efficiency of 86.3%. Moderate sleep disordered breathing (AHI=27) is noted based on a 4% hypopnea desaturati on criteria. The patient slept supine 21.8% of the night based on valid recording time of 6.06 hours and is 1.6 times as likely to have apneas/ hypopneas when supine. The apneas/hyp opneas are accompanie d by mild oxygen desaturati on (percent time below 90% SpO2:7.1% Min SpO2:7.1%. Min SpO2:81.2% ). The average desaturati on across all sleep disordered breathing events is 4.2%. Snoring occurs for 38.8% (30 dB) of the study, 14.4% is very loud. The mean pulse rate is 70 BPM, with infrequent pulse rate variabilit y (30 events with >=6 BPM increase/d ecrease per hour). Began CPAP, but was intolerant of CPAP. Patient has oral device for ELISEO since intolerant of CPAP. She previously stopped VitB12 energy supplement which had 150 mg caffeine. Reports increased fatigue for 3 months. She sleeps 12 hours a day. She reports using her ELISEO oral device previously but has been unable to wear it for 3 months due to pointy surfaces. Resumed oral device late August 2020, with less subsequent fatigue. Given increased fatigue and history of mild pulm. HTN, obtained echo 10/08/20 with Normal RVSP. Encouraged patient to have oral device adjusted with [facility]. Increase compliance . [id number] MD [facility] [address] [place] [address] 07/10/2022 11:28:54 07/10/2022 13:17:19 Dyspnea on exertion [id number] R06.09 Reports stable exertional dyspnea. Had treadmill nuclear stress test 11/04/20: Negative stress test for ischemia. Normal LV systolic function. Artifact noted. Exercise tolerance: Poor. Compared to last study in 05/10/12, there are no changes. LVEF >60%. Had [place] stress 05/10/2012 : Normal rest and pharmacolo gic stress myocardial perfusion. Normal LV size and systolic function. Had [facility] 06/30/2006 Normal size left ventricle. LVSF is normal. Elevated left ventricula r systolic and diastolic pressures post angiograph ically. Mild ectasia in the right coronary artery, and 20-30% disease in the proximal segment. Had ECHO 10/08/20: LV chamber size is normal, LV wall thickness is mildly increased, the estimated LVEF is 55-60%(nor mal), LV relaxation is impaired, there is mild aortic regurgitat ion, there is mild thickening of the mitral valve anterior leaflet, there is a dense posterior mitral annular calcificat ion, there is mild mitral regurgitat ion, there is mild tricuspid regurgitat ion, there is mild pulmonic regurgitat ion, the ascending aorta is mildly dilated, there is a trace pericardia l effusion. Had 09/21/20:N a 143,K 4.2,Cl 106,Co2 27,Glu 111,Bun 19,Cr 0.9,AST 18,ALT 10, Mg 1.7, TSH 0.72 09/21/20:T C 128,TG 107,HDL 52,LDL 55. 09/21/20:W BC 6.6,RBC 3.97,HGB 10.7,HCT 33.3,PLT 316. Obtain labs FLP/CMP 03/2021 and 04/2022. Increase walking. Coronary arteriosclerosis [id number] I25.10 Stable. Mild. Had treadmill nuclear stress test 11/04/20: Negative stress test for ischemia. Normal LV systolic function. Artifact noted. Exercise tolerance: Poor. Compared to last study in 05/10/12, there are no changes. LVEF >60% Had [place] stress 05/10/2012 : Normal rest and pharmacolo gic stress myocardial perfusion. Normal LV size and systolic function. Had [facility] 06/30/2006 Normal size left ventricle. LVSF is normal. Elevated left ventricula r systolic and diastolic pressures post angiograph ically. Mild ectasia in the right coronary artery, and 20-30% disease in the proximal segment Changed metoprolol tartrate 50 mg qd to metoprolol succinate 50 mg qd 11/22/18. Continue statin. Resumed ASA 81 mg qd 11/22/18. Needs to keep LDL less than 70, and HDL more than 40. Essential hypertension [id number] I10 Has mild-moder ate LVH. Patient's blood pressure is well-contr olled on present medical therapy. Patient is tolerating , without difficulty , the current medication s. I have made the following changes to the current regimen. Patient is advised to maintain a blood pressure diary. Patient was advised to eat a low-sodium diet (2 grams sodium or less daily). BP monitor. Increased to enalapril 20 mg qd 12/27/18, which was reduced to 10 mg qd by PCP 09/11/19. Had 01/20/2019 K 4.3, CR 0.8, MG 1.7 Began amlodipine 5 mg qd 02/07/19. Increased to amlodipine 10 mg qd 03/21/19. Increased to enalapril 20 mg qd 05/02/21. Had 06-30-2021 : CMP- NA 140 K 3.7 CL 105 BUN 32 CR 0.90 GL 140 MAG 1.7 CA 9.2 TSH-0.36 [id number] Hyperlipidemia [id number] E78.2 Patient's hyperlipid emia is well-contr olled on present medical therapy. Patient was advised to eat a low-fat diet. Patient is tolerating , without difficulty , the current medication s. I have not made changes to the current regimen. Needs to keep LDL less than 70, and HDL more than 40. Had LIPID 12/24/2018 TR 125 CH 153 HDL 60 LDL 68. Had LIPID 07/08/2019 TR 109 CH 132 HDL 58 LDL 52. Had 02/12/2020 : Cholestero l 141, Triglyceri lisy 131, HDl 56, LDL 59 . Had 09/21/20: TC 128, TG 107, HDL 52, LDL 55. Continue statin. Had 05/14/2022 CMP-NA 136 K 4.5 BUN 25 CR 1.00 GL 97 MAG 1.5 CA 9.8 LIPID-CHOL 140 TRIG 58 HDL 75 LDL 53 TSH-0.51 CBC- WBC 5.5 RBC 3.56 HGB 9.9 HCT 30.3 PLT 326 Obtain BMP, Mg, CBC. Diabetes mellitus [id number] 09 E11.59 Discussed importance of tight glycemic control to minimize cardiovasc ular disease progressio n. Aortic suzie t dilatation [id number] I77.810 Mild. 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 Had ECHO 10/08/20: LV chamber size is normal, LV wall thickness is mildly increased, the estimated LVEF is 55-60%(nor mal), LV relaxation is impaired, there is mild aortic regurgitat ion, there is mild thickening of the mitral valve anterior leaflet, there is a dense posterior mitral annular calcificat ion, there is mild mitral regurgitat ion, there is mild tricuspid regurgitat ion, there is mild pulmonic regurgitat ion, the ascending aorta is mildly dilated, there is a trace pericardia l effusion. Had ECHO done in 12/08/18 showed normal global systolic function , EF 55-60% , Grade I diastolic dysfunctio n , mild aortic regurgitat ion , mild mitral regurgitat ion , mild to moderate tricuspid regurgitat ion , mild pulmonary hypertensi on. Normal aortic root dimensions 3.3 to 2.9 cm. Had Echo 03/03/2017: The aortic root and ascending aorta are dilated measuring up to 4.0 cm. Obtain yearly CTA chest 07/2022 to assess aortic root dimensions , with mild ascending aorta dilatation . Aortic efrain ve regurgitation [id number] I35.1 Mild AI. Had ECHO 10/08/20: LV chamber size is normal, LV wall thickness is mildly increased, the estimated LVEF is 55-60%(nor mal), LV relaxation is impaired, there is mild aortic regurgitat ion, there is mild thickening of the mitral valve anterior leaflet, there is a dense posterior mitral annular calcificat ion, there is mild mitral regurgitat ion, there is mild tricuspid regurgitat ion, there is mild pulmonic regurgitat ion, the ascending aorta is mildly dilated, there is a trace pericardia l effusion. Had ECHO done in 12/08/18 showed normal global systolic function , EF 55-60% , Grade I diastolic dysfunctio n , mild aortic regurgitat ion , mild mitral regurgitat ion , mild to moderate tricuspid regurgitat ion , mild pulmonary hypertensi on . Had Echo 03/03/2017 The LV size is normal. There is moderate concentric LV hypertroph y. Overall LVSF id normal with an EF between 65-70%. The LVEDP is elevated. The left atrium is mildly dilated. Aortic valve is trileaflet and is mildly thickened. There is mild to moderate aortic regurgitat ion. Mild mitral regurgitat ion is present. Mild thickening of the anterior mitral valve leaflet. Mild to moderate tricuspid regurgitat ion present. The right ventricula r systolic pressure as measured by doppler is 37.9 mmHg. Mild pulmonic valve regurgitat ion. The aortic root and ascending aorta are dilated measuring up to 4.0 cm. Obtain echo to evaluate for structural /functiona l disease. Obstructiv e sleep apnea syndrome [id number] G47.33 Reported increased daytime somnolence and fatigue, with snoring. Had prior mild pulm. HTN. Obtained home sleep study 01/19/19 with moderate ELISEO: Had ECHO 10/08/20: LV chamber size is normal, LV wall thickness is mildly increased, the estimated LVEF is 55-60%(nor mal), LV relaxation is impaired, there is mild aortic regurgitat ion, there is mild thickening of the mitral valve anterior leaflet, there is a dense posterior mitral annular calcificat ion, there is mild mitral regurgitat ion, there is mild tricuspid regurgitat ion, there is mild pulmonic regurgitat ion, the ascending aorta is mildly dilated, there is a trace pericardia l effusion. Normal RVSP. Sleep study 01/19/2019 Patient underwent a onenight home sleep test (with respirator y effort belt) and by behavioral criteria, slept for approximat gris 6.1 hours, with a sleep latency of 9 minutes and a sleep efficiency of 86.3%. Moderate sleep disordered breathing (AHI=27) is noted based on a 4% hypopnea desaturati on criteria. The patient slept supine 21.8% of the night based on valid recording time of 6.06 hours and is 1.6 times as likely to have apneas/ hypopneas when supine. The apneas/hyp opneas are accompanie d by mild oxygen desaturati on (percent time below 90% SpO2:7.1% Min SpO2:7.1%. Min SpO2:81.2% ). The average desaturati on across all sleep disordered breathing events is 4.2%. Snoring occurs for 38.8% (30 dB) of the study, 14.4% is very loud. The mean pulse rate is 70 BPM, with infrequent pulse rate variabilit y (30 events with >=6 BPM increase/d ecrease per hour). Began CPAP, but was intolerant of CPAP. Patient has oral device for ELISEO since intolerant of CPAP. She previously stopped VitB12 energy supplement which had 150 mg caffeine. Reports increased fatigue for 3 months. She sleeps 12 hours a day. She reports using her ELISEO oral device previously but has been unable to wear it for 3 months due to pointy surfaces. Resumed oral device late August 2020, with less subsequent fatigue. Given increased fatigue and history of mild pulm. HTN, obtained echo 10/08/20 with Normal RVSP. Encouraged patient to have oral device adjusted with [facility]. Increase compliance . [id number] Milind Guillen MD [place] OFF[facility] [place] [address] 10/09/2022 10:19:36 10/09/2022 12:02:51 Dyspnea on exertion [id number] R06.09 Reports stable exertional dyspnea. Has mild pulm. HTN. Had treadmill nuclear stress test 11/04/20: Negative stress test for ischemia. Normal LV systolic function. Artifact noted. Exercise tolerance: Poor. Compared to last study in 05/10/12, there are no changes. LVEF >60%. Had [place] stress 05/10/2012 : Normal rest and pharmacolo gic stress myocardial perfusion. Normal LV size and systolic function. Had [facility] 06/30/2006 Normal size left ventricle. LVSF is normal. Elevated left ventricula r systolic and diastolic pressures post angiograph ically. Mild ectasia in the right coronary artery, and 20-30% disease in the proximal segment. Had ECHO 07/27/22: LV chamber size is normal. LV wall thickness is mildly increased. The estimated left ventricle ejection fraction is 55-60% (normal). LV relaxation is impaired. The aortic valve is mildly calcified. There is mild aortic root calcificat ion. There is mild aortic regurgitat ion. There is a dense posterior mitral annular calcificat ion. There is mild mitral regurgitat ion. There is mild triscupid regurgitat ion. Mild elevation of estimated RV systolic pressure. Estimated RVSP systolic pressure is 45 mmHG. There is mild pulmonic regurgitat ion. There is a trace pericardia l effusion. Had ECHO 10/08/20: LV chamber size is normal, LV wall thickness is mildly increased, the estimated LVEF is 55-60%(nor mal), LV relaxation is impaired, there is mild aortic regurgitat ion, there is mild thickening of the mitral valve anterior leaflet, there is a dense posterior mitral annular calcificat ion, there is mild mitral regurgitat ion, there is mild tricuspid regurgitat ion, there is mild pulmonic regurgitat ion, the ascending aorta is mildly dilated, there is a trace pericardia l effusion. Had 09/21/20:N a 143,K 4.2,Cl 106,Co2 27,Glu 111,Bun 19,Cr 0.9,AST 18,ALT 10, Mg 1.7, TSH 0.72 09/21/20:T C 128,TG 107,HDL 52,LDL 55. 09/21/20:W BC 6.6,RBC 3.97,HGB 10.7,HCT 33.3,PLT 316. Obtain labs FLP/CMP 03/2021 and 04/2022. Increase walking. Coronary arteriosclerosis [id number] I25.10 Stable. Mild. Had treadmill nuclear stress test 11/04/20: Negative stress test for ischemia. Normal LV systolic function. Artifact noted. Exercise tolerance: Poor. Compared to last study in 05/10/12, there are no changes. LVEF >60% Had [place] stress 05/10/2012 : Normal rest and pharmacolo gic stress myocardial perfusion. Normal LV size and systolic function. Had [facility] 06/30/2006 Normal size left ventricle. LVSF is normal. Elevated left ventricula r systolic and diastolic pressures post angiograph ically. Mild ectasia in the right coronary artery, and 20-30% disease in the proximal segment. Changed metoprolol tartrate 50 mg qd to metoprolol succinate 50 mg qd 11/22/18. Continue statin. Resumed ASA 81 mg qd 11/22/18. Needs to keep LDL less than 70, and HDL more than 40. Essential hypertension [id number] I10 Has mild-moder ate LVH. Patient's blood pressure is well-contr olled on present medical therapy. Patient is tolerating , without difficulty , the current medication s. I have not made changes to the current regimen. Patient is advised to maintain a blood pressure diary. Patient was advised to eat a low-sodium diet (2 grams sodium or less daily). BP monitor. Increased to enalapril 20 mg qd 12/27/18, which was reduced to 10 mg qd by PCP 09/11/19. Had 01/20/2019 K 4.3, CR 0.8, MG 1.7 Began amlodipine 5 mg qd 02/07/19. Increased to amlodipine 10 mg qd 03/21/19. Increased to enalapril 20 mg qd 05/02/21. Had 06-30-2021 : CMP- NA 140 K 3.7 CL 105 BUN 32 CR 0.90 GL 140 MAG 1.7 CA 9.2 TSH-0.36 [id number]-0.9 Had 09/26/22: TSH 0.96, LDL 68, K 4.1, Cr 0.7, Had 07/23/2022 BMP-NA 140 k 4.4 bun 19 cr 0.80 gl 86 CA 9.7MAG-1.6 CBC-WBC 7.1 HGB 10.3 HCT 31.5 PLT 331 RBC 3.63 Hyperlipidemia [id number] E78.2 Patient's hyperlipid emia is well-contr olled on present medical therapy. Patient was advised to eat a low-fat diet. Patient is tolerating , without difficulty , the current medication s. I have not made changes to the current regimen. Needs to keep LDL less than 70, and HDL more than 40. Had LIPID 12/24/2018 TR 125 CH 153 HDL 60 LDL 68. Had LIPID 07/08/2019 TR 109 CH 132 HDL 58 LDL 52. Had 02/12/2020 : Cholestero l 141, Triglyceri lisy 131, HDl 56, LDL 59 . Had 09/21/20: TC 128, TG 107, HDL 52, LDL 55. Continue statin. Had 05/14/2022 CMP-NA 136 K 4.5 BUN 25 CR 1.00 GL 97 MAG 1.5 CA 9.8 LIPID-CHOL 140 TRIG 58 HDL 75 LDL 53 TSH-0.51 CBC- WBC 5.5 RBC 3.56 HGB 9.9 HCT 30.3 PLT 326 Diabetes mellitus 861922 09 E11.59 Discussed importance of tight glycemic control to minimize cardiovasc ular disease progressio n. Aortic suzie t dilatation [id number] I77.810 Mild. 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 Had ECHO 10/08/20: LV chamber size is normal, LV wall thickness is mildly increased, the estimated LVEF is 55-60%(nor mal), LV relaxation is impaired, there is mild aortic regurgitat ion, there is mild thickening of the mitral valve anterior leaflet, there is a dense posterior mitral annular calcificat ion, there is mild mitral regurgitat ion, there is mild tricuspid regurgitat ion, there is mild pulmonic regurgitat ion, the ascending aorta is mildly dilated, there is a trace pericardia l effusion. Had ECHO done in 12/08/18 showed normal global systolic function , EF 55-60% , Grade I diastolic dysfunctio n , mild aortic regurgitat ion , mild mitral regurgitat ion , mild to moderate tricuspid regurgitat ion , mild pulmonary hypertensi on. Normal aortic root dimensions 3.3 to 2.9 cm. Had Echo 03/03/2017: The aortic root and ascending aorta are dilated measuring up to 4.0 cm. Obtain yearly CTA chest now to assess aortic root dimensions , with mild ascending aorta dilatation . Aortic efrain ve regurgitation [id number] I35.1 Mild AI. Had ECHO 07/27/22: LV chamber size is normal. LV wall thickness is mildly increased. The estimated left ventricle ejection fraction is 55-60% (normal). LV relaxation is impaired. The aortic valve is mildly calcified. There is mild aortic root calcificat ion. There is mild aortic regurgitat ion. There is a dense posterior mitral annular calcificat ion. There is mild mitral regurgitat ion. There is mild triscupid regurgitat ion. Mild elevation of estimated RV systolic pressure. Estimated RVSP systolic pressure is 45 mmHG. There is mild pulmonic regurgitat ion. There is a trace pericardia l effusion. Had ECHO 10/08/20: LV chamber size is normal, LV wall thickness is mildly increased, the estimated LVEF is 55-60%(nor mal), LV relaxation is impaired, there is mild aortic regurgitat ion, there is mild thickening of the mitral valve anterior leaflet, there is a dense posterior mitral annular calcificat ion, there is mild mitral regurgitat ion, there is mild tricuspid regurgitat ion, there is mild pulmonic regurgitat ion, the ascending aorta is mildly dilated, there is a trace pericardia l effusion. Had ECHO done in 12/08/18 showed normal global systolic function , EF 55-60% , Grade I diastolic dysfunctio n , mild aortic regurgitat ion , mild mitral regurgitat ion , mild to moderate tricuspid regurgitat ion , mild pulmonary hypertensi on . Had Echo 03/03/2017 The LV size is normal. There is moderate concentric LV hypertroph y. Overall LVSF id normal with an EF between 65-70%. The LVEDP is elevated. The left atrium is mildly dilated. Aortic valve is trileaflet and is mildly thickened. There is mild to moderate aortic regurgitat ion. Mild mitral regurgitat ion is present. Mild thickening of the anterior mitral valve leaflet. Mild to moderate tricuspid regurgitat ion present. The right ventricula r systolic pressure as measured by doppler is 37.9 mmHg. Mild pulmonic valve regurgitat ion. The aortic root and ascending aorta are dilated measuring up to 4.0 cm. Obstructiv e sleep apnea syndrome [id number] G47.33 Reported increased daytime somnolence and fatigue, with snoring. Has mild pulm. HTN. Obtained home sleep study 01/19/19 with moderate ELISEO. Had ECHO 07/27/22: LV chamber size is normal. LV wall thickness is mildly increased. The estimated left ventricle ejection fraction is 55-60% (normal). LV relaxation is impaired. The aortic valve is mildly calcified. There is mild aortic root calcificat ion. There is mild aortic regurgitat ion. There is a dense posterior mitral annular calcificat ion. There is mild mitral regurgitat ion. There is mild triscupid regurgitat ion. Mild elevation of estimated RV systolic pressure. Estimated RVSP systolic pressure is 45 mmHG. There is mild pulmonic regurgitat ion. There is a trace pericardia l effusion. Had ECHO 10/08/20: LV chamber size is normal, LV wall thickness is mildly increased, the estimated LVEF is 55-60%(nor mal), LV relaxation is impaired, there is mild aortic regurgitat ion, there is mild thickening of the mitral valve anterior leaflet, there is a dense posterior mitral annular calcificat ion, there is mild mitral regurgitat ion, there is mild tricuspid regurgitat ion, there is mild pulmonic regurgitat ion, the ascending aorta is mildly dilated, there is a trace pericardia l effusion. Normal RVSP. Sleep study 01/19/2019 Patient underwent a onenight home sleep test (with respirator y effort belt) and by behavioral criteria, slept for approximat gris 6.1 hours, with a sleep latency of 9 minutes and a sleep efficiency of 86.3%. Moderate sleep disordered breathing (AHI=27) is noted based on a 4% hypopnea desaturati on criteria. The patient slept supine 21.8% of the night based on valid recording time of 6.06 hours and is 1.6 times as likely to have apneas/ hypopneas when supine. The apneas/hyp opneas are accompanie d by mild oxygen desaturati on (percent time below 90% SpO2:7.1% Min SpO2:7.1%. Min SpO2:81.2% ). The average desaturati on across all sleep disordered breathing events is 4.2%. Snoring occurs for 38.8% (30 dB) of the study, 14.4% is very loud. The mean pulse rate is 70 BPM, with infrequent pulse rate variabilit y (30 events with >=6 BPM increase/d ecrease per hour). Began CPAP, but was intolerant of CPAP. Patient has oral device for ELISEO since intolerant of CPAP. She previously stopped VitB12 energy supplement which had 150 mg caffeine. Reports increased fatigue for 3 months. She sleeps 12 hours a day. She reports using her ELISEO oral device previously but has been unable to wear it for 3 months due to pointy surfaces. Resumed oral device late August 2020, with less subsequent fatigue. Encouraged patient to have oral device adjusted with [facility]. Increase compliance . Health Concerns Section Related Observation LastModified by Organization Detai ls LastModified Time None Recorded Concern Status LastModified by Organization Details LastModified Time None Recorded Advance Directives Directive N: Payers Insurance Date Sequence Insurance Name Policy Number Policy Jones Covered Member ID Jones Member ID Guarantor Name 10/06/2022 2 [place] [id number] Herlinda Caden [id number] Herlinda Negrete 10/06/2022 1 [place] Herlinda Negrete [id number] Herlinda Negrete 09/13/2020 2 [place] [id number] Herlinda Negrete [id number] Herlinda Negrete Notes Date Note Type Note Provider Name and Address Organization Details Recorded Time 05/02/2021 text/html 05/02/21 cc: coronary artery disease 85 year-old white woman with history of coronary artery disease, aortic root dilatation, aortic valve regurgitation, hypertension, hyperlipidemia, diabetes mellitus, hepatic steatosis, ELISEO (on oral device), ulcerative colitis, hiatal hernia, presents for follow-up with the chief complaints of coronary artery disease. She was last seen in our office 3 mo. ago, and since then she has been feeling better. She is walking on treadmill daily for 15 min. Due to imbalance, needing cane now. She sleeps 10-12 hours a day with good sleep. She reports using her ELISEO oral device. Resumed oral device late August 2020, with less subsequent fatigue. Reports improving problems with finger cramping in both hands, better with hand exercises. She denied any chest pain, orthopnea, dizziness, palpitation, or syncope. Reports reduced exercise capacity and no exertional dyspnea with walking on treadmill. No edema. She is a former patient of Dr. Montez. Reports home SBP 120-160s/75 before AM meds. She is seeing GI med for loose stools and was started on sulfasalazine again for ulcerative colitis. History of coronary artery disease reported. No history of previous myocardial infarction. No history of heart failure. History of valvular heart disease reported. No known arrhythmia. Patient reports feeling well overall. Patient is active, exercising regularly. 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 Had ECHO 10/08/20: LV chamber size is normal, LV wall thickness is mildly increased, the estimated LVEF is 55-60%(normal), LV relaxation is impaired, there is mild aortic regurgitation, there is mild thickening of the mitral valve anterior leaflet, there is a dense posterior mitral annular calcification, there is mild mitral regurgitation, there is mild tricuspid regurgitation, there is mild pulmonic regurgitation, the ascending aorta is mildly dilated, there is a trace pericardial effusion. Had ECHO done in 12/08/18 showed LV wall thickness is mild to moderately increased, normal global systolic function , EF 55-60% , Grade I diastolic dysfunction, mild aortic regurgitation , mild mitral regurgitation , mild to moderate tricuspid regurgitation , mild pulmonary hypertension . Had Echo 03/03/2017 The LV size is normal. There is moderate concentric LV hypertrophy. Overall LVSF id normal with an EF between 65-70%. The LVEDP is elevated. The left atrium is mildly dilated. Aortic valve is trileaflet and is mildly thickened. There is mild to moderate aortic regurgitation. Mild mitral regurgitation is present. Mild thickening of the anterior mitral valve leaflet. Mild to moderate tricuspid regurgitation present. The right ventricular systolic pressure as measured by doppler is 37.9 mmHg. Mild pulmonic valve regurgitation. The aortic root and ascending aorta are dilated measuring up to 4.0 cm. Had treadmill nuclear stress test 11/04/20: Negative stress test for ischemia. Normal LV systolic function. Artifact noted. Exercise tolerance: Poor. Compared to last study in 05/10/12, there are no changes. LVEF >60% Had [place] stress 05/10/2012: Normal rest and pharmacologic stress myocardial perfusion. Normal LV size and systolic function. Had [facility] 06/30/2006 Normal size left ventricle. LVSF is normal. Elevated left ventricular systolic and diastolic pressures post angiographically. Mild ectasia in the right coronary artery, and 20-30% disease in the proximal segment. 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 XR chest 05/09/2012 No acute findings. Reports increased daytime somnolence and fatigue. Results from this visit, or from the past: Had 12/28/20: K 4.2, Cr 0.8, hgb A1C 5.6%, TSH 0.6, hgb 10.5 09/21/20:Na 143,K 4.2,Cl 106,Co2 27,Glu 111,Bun 19,Cr 0.9,AST 18,ALT 10, Mg 1.7, TSH 0.72 09/21/20:TC 128,TG 107,HDL 52,LDL 55. 09/21/20:WBC 6.6,RBC 3.97,HGB 10.7,HCT 33.3,PLT 316. 06/14/2020: Na 141,K 4.4,Cl 106,Co2 27,Glucose 91,BUN 24,Creati 0.9,Ca 9.9,%A1c 6.1 06/14/2020: WBC 6.4,RBC 3.85,HGB 11.0,HCT 34.2,PLT 315 02/12/2020 : Na 142,K 4.5,Cl 106,Co2 27,Glucose 72,BUN 18,Creati 0.9.Ca 9.8,AST 19,ALT 9,Alkaline phosphatase 48,%A1c 6.1 02/12/2020 TSH 1.040 02/12/2020 : Cholesterol 141,Triglycerides 131,HDl 56,LDL 59 CMP 07/08/2019 NA 138 K 4.3 CH 103 CO2 25 GL 93 BUN 19 CR 0.8 CA 9.5 AST 21 ALT 10 ALK PH 47 HGA1C 6.2 07-08-2019 TSH 1.050 LIPID 07/08/2019 TR 109 CH 132 HDL 58 LDL 52 BMP 01/20/2019 NA 140 K 4.3 CH 105 CO2 27 GL 188 BUN 25 CR 0.8 CA 9.3 MG 1.7 CMP 12/24/2018 NA 145 K 4.5 CH 108 CO2 25 GL 111 BUN 22 CR 0.7 CA 9.4 AST 16 ALT 11 ALK PH 51 HGA1C 6.5 TSH 12/24/2018 0.96 LIPID 12/24/2018 TR 125 CH 153 HDL 60 LDL 68 CMP 09/24/2018 NA 140 K 3.7 CH 105 CO2 25 GL 90 BUN 21 CR 0.7 CA 9.2 HGA1C 6.1 Vitamin D 27 CBC 09/24/2018 WBC 5.4 RBC 3.71 HGB 11.2 HCT 33.9 PLT 285 LIPID 06/17/2018 TR 95 CH 143 HDL 62 LDL 62 TSH 0.57 TSH 12/06/2017 1.41 hemoglobin A1c, QN, blood 05-15-2017 HGA1C 6.1 09/13/2020 EKG ; NSR, IRBBB, Low voltage in chest leads ,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 03-21-2019 ekg: NSR, Incomplete rbbb low voltage , chest leads. EKG 11/22/18 NSR, incomplete RBBB,,Low voltage in chest leads 11/04/20 TDM Negative stress test for ischemia. Normal LV systolic function. Artifact noted. Exercise tolerance: Poor. Compared to last study in 05/10/12, there are no changes. LVEF >60% ECHO 10/08/20:LV chamber size is normal,LV wall thickness is mildly increased,the estimated LVEF is 55-60%(normal),LV relaxation is impaired,there is mild aortic regurgitation,there is mild thickening of the mitral valve anterior leaflet,there is a dense posterior mitral annular calcification,there is mild mitral regurgitation,there is mild tricuspid regurgitation,there is mild pulmonic regurgitation,the ascending aorta is mildly dialted,there is a trace pericardial effusion. US ECHO: 12/08/18 Study quality: Technically difficult. LV chamber size is normal. LV wall thickness is mild to moderately increased. There is normal global systolic function and contractility. The estimated left ventricle ejection fraction is 55-60% (normal). Normal left atrial pressure with Grade I diastolic dysfunction. There is mild aortic regurgitation. There is mild mitral regurgitation. There is mild to moderate tricuspid regurgitation. There is mild pulmonary hypertension. Estimated RVSP is 48 mmHg. Had ECHO done in 12/08/18 showed normal global systolic function , EF 55-60% , Grade I diastolic dysfunction , mild aortic regurgitation , mild mitral regurgitation , mild to moderate tricuspid regurgitation , mild pulmonary hypertension . Echo 03/03/2017 The LV size is normal. There is moderate concentric LV hypertrophy. Overall LVSF id normal with an EF between 65-70%. The LVEDP is elevated. The left atrium is mildly dilated. Aortic valve is trileaflet and is mildly thickened. There is mild to moderate aortic regurgtitation. Mild mitral regurgitation is present. Mild thickening of the anterior mitral valve leaflet. Mild to moderate tricuspid regurgitation present. The right ventricular systolic pressure as measured by doppler is 37.9 mmHg. Mild pulmonic valve regurgitation. The aortic root and ascending arota are dilated measuring up to 4.0 cm Sleep study 01/19/2019 Patient underwent a onenight home sleep test (with respiratory effort belt) and by behavioral criteria, slept for approximately 6.1 hours, with a sleep latency of 9 minutes and a sleep efficiency of 86.3%. Moderate sleep disordered breathing (AHI=27) is noted based on a 4% hypopnea desaturation criteria. The patient slept supine 21.8% of the night based on valid recording time of 6.06 hours and is 1.6 times as likely to have apneas/ hypopneas when supine. The apneas/hypopneas are accompanited by mild oxygen desaturation (percent time below 90% SpO2:7.1% Min SpO2:7.1%. Min SpO2:81.2%). The average desaturation across all sleep disordered breathing events is 4.2%. Snoring ovvurs for 38.8% (30 dB) of the study, 14.4% is very loud. The mean pulse rate is 70 BPM, with infrequent pulse rate variability (30 events with >=6 BPM increase/decrease per hour) Echo 03/03/2017 The LV size is normal. There is moderate concentric LV hypertrophy. Overall LVSF id normal with an EF between 65-70%. The LVEDP is elevated. The left atrium is mildly dilated. Aortic valve is trileaflet and is mildly thickened. There is mild to moderate aortic regurgtitation. Mild mitral regurgitation is present. Mild thickening of the anterior mitral valve leaflet. Mild to moderate tricuspid regurgitation present. The right ventricular systolic pressure as measured by doppler is 37.9 mmHg. Mild pulmonic valve regurgitation. The aortic root and ascending arota are dilated measuring up to 4.0 cm Had treadmill nuclear stress test 11/04/20: Negative stress test for ischemia. Normal LV systolic function. Artifact noted. Exercise tolerance: Poor. Compared to last study in 05/10/12, there are no changes. LVEF >60% [place] stress 05/10/2012 Normal rest and pharmacologic stress myocardial perfusion. Normal LV size and systolic function [facility] 06/30/2006 Normal size left ventricle. LVSF is normal. Elevated left ventricular systolic and diastolic pressures post angiographically. 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 [facility] [place] [facility] 05/02/2021 10:55:56 10/31/2021 text/html 10/31/2021 cc: coronary artery disease 86 year-old white woman with history of coronary artery disease, aortic root dilatation, aortic valve regurgitation, hypertension, hyperlipidemia, diabetes mellitus, hepatic steatosis, ELISEO (on oral device), ulcerative colitis, hiatal hernia, presents for follow-up with the chief complaints of coronary artery disease. She was last seen in our office 6 mo. ago, and since then she has not been feeling better. She has symptoms of depression. Reports hemorrhoids with bleeding previously for which she has f/u with GI Dr. Kay. She was walking on treadmill daily for 15 min. Due to imbalance, needing cane now. She sleeps 10-12 hours a day with good sleep. She reports using her ELISEO oral device, not as much recently. Resumed oral device late August 2020, with less subsequent fatigue. Reports improving problems with finger cramping in both hands, better with hand exercises. She denied any chest pain, dyspnea, orthopnea, dizziness, palpitation, or syncope. Reports reduced exercise capacity and no exertional dyspnea with walking on treadmill. No edema. She is a former patient of Dr. Montez. Reports home SBP 120-160s/75 before AM meds. She is seeing GI med for loose stools and was started on sulfasalazine again for ulcerative colitis. History of coronary artery disease reported. No history of previous myocardial infarction. No history of heart failure. History of valvular heart disease reported. No known arrhythmia. Patient reports feeling well overall. Patient is active, exercising regularly. 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 Had ECHO 10/08/20: LV chamber size is normal, LV wall thickness is mildly increased, the estimated LVEF is 55-60%(normal), LV relaxation is impaired, there is mild aortic regurgitation, there is mild thickening of the mitral valve anterior leaflet, there is a dense posterior mitral annular calcification, there is mild mitral regurgitation, there is mild tricuspid regurgitation, there is mild pulmonic regurgitation, the ascending aorta is mildly dilated, there is a trace pericardial effusion. Had ECHO done in 12/08/18 showed LV wall thickness is mild to moderately increased, normal global systolic function , EF 55-60% , Grade I diastolic dysfunction, mild aortic regurgitation , mild mitral regurgitation , mild to moderate tricuspid regurgitation , mild pulmonary hypertension . Had Echo 03/03/2017 The LV size is normal. There is moderate concentric LV hypertrophy. Overall LVSF id normal with an EF between 65-70%. The LVEDP is elevated. The left atrium is mildly dilated. Aortic valve is trileaflet and is mildly thickened. There is mild to moderate aortic regurgitation. Mild mitral regurgitation is present. Mild thickening of the anterior mitral valve leaflet. Mild to moderate tricuspid regurgitation present. The right ventricular systolic pressure as measured by doppler is 37.9 mmHg. Mild pulmonic valve regurgitation. The aortic root and ascending aorta are dilated measuring up to 4.0 cm. Had treadmill nuclear stress test 11/04/20: Negative stress test for ischemia. Normal LV systolic function. Artifact noted. Exercise tolerance: Poor. Compared to last study in 05/10/12, there are no changes. LVEF >60% Had [place] stress 05/10/2012: Normal rest and pharmacologic stress myocardial perfusion. Normal LV size and systolic function. Had [facility] 06/30/2006 Normal size left ventricle. LVSF is normal. Elevated left ventricular systolic and diastolic pressures post angiographically. Mild ectasia in the right coronary artery, and 20-30% disease in the proximal segment. 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 XR chest 05/09/2012 No acute findings. Reports increased daytime somnolence and fatigue. Results from this visit, or from the past: [id number] NA 140 K 3.7 CL 105 BUN 32 CR 0.90 GL 140 MAG 1.7 CA 9.2 TSH-0.36 [id number] electrocardiogram [id number], serum or plasma /: Na 139,K 4.2,Cl 105,CO2 25,GLU 92,BUN 23,Cr 0.80. 12/28/20:WBC 5.9,RBC 3.54,HGB 10.5,HCT 32.1,PLT 290 Had 12/28/20: K 4.2, Cr 0.8, hgb A1C 5.6%, TSH 0.6, hgb 10.5 09/21/20:Na 143,K 4.2,Cl 106,Co2 27,Glu 111,Bun 19,Cr 0.9,AST 18,ALT 10, Mg 1.7, TSH 0.72 09/21/20:TC 128,TG 107,HDL 52,LDL 55. 09/21/20:WBC 6.6,RBC 3.97,HGB 10.7,HCT 33.3,PLT 316. 06/14/2020: Na 141,K 4.4,Cl 106,Co2 27,Glucose 91,BUN 24,Creati 0.9,Ca 9.9,%A1c 6.1 06/14/2020: WBC 6.4,RBC 3.85,HGB 11.0,HCT 34.2,PLT 315 02/12/2020 : Na 142,K 4.5,Cl 106,Co2 27,Glucose 72,BUN 18,Creati 0.9.Ca 9.8,AST 19,ALT 9,Alkaline phosphatase 48,%A1c 6.1 02/12/2020 TSH 1.040 02/12/2020 : Cholesterol 141,Triglycerides 131,HDl 56,LDL 59 CMP 07/08/2019 NA 138 K 4.3 CH 103 CO2 25 GL 93 BUN 19 CR 0.8 CA 9.5 AST 21 ALT 10 ALK PH 47 HGA1C 6.2 07-08-2019 TSH 1.050 LIPID 07/08/2019 TR 109 CH 132 HDL 58 LDL 52 BMP 01/20/2019 NA 140 K 4.3 CH 105 CO2 27 GL 188 BUN 25 CR 0.8 CA 9.3 MG 1.7 CMP 12/24/2018 NA 145 K 4.5 CH 108 CO2 25 GL 111 BUN 22 CR 0.7 CA 9.4 AST 16 ALT 11 ALK PH 51 HGA1C 6.5 TSH 12/24/2018 0.96 LIPID 12/24/2018 TR 125 CH 153 HDL 60 LDL 68 CMP 09/24/2018 NA 140 K 3.7 CH 105 CO2 25 GL 90 BUN 21 CR 0.7 CA 9.2 HGA1C 6.1 Vitamin D 27 CBC 09/24/2018 WBC 5.4 RBC 3.71 HGB 11.2 HCT 33.9 PLT 285 LIPID 06/17/2018 TR 95 CH 143 HDL 62 LDL 62 TSH 0.57 TSH 12/06/2017 1.41 hemoglobin A1c, QN, blood 05-15-2017 HGA1C 6.1 09/13/2020 EKG ; NSR, IRBBB, Low voltage in chest leads ,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 03-21-2019 ekg: NSR, Incomplete rbbb low voltage , chest leads. EKG 11/22/18 NSR, incomplete RBBB,,Low voltage in chest leads 11/04/20 TDM Negative stress test for ischemia. Normal LV systolic function. Artifact noted. Exercise tolerance: Poor. Compared to last study in 05/10/12, there are no changes. LVEF >60% ECHO 10/08/20:LV chamber size is normal,LV wall thickness is mildly increased,the estimated LVEF is 55-60%(normal),LV relaxation is impaired,there is mild aortic regurgitation,there is mild thickening of the mitral valve anterior leaflet,there is a dense posterior mitral annular calcification,there is mild mitral regurgitation,there is mild tricuspid regurgitation,there is mild pulmonic regurgitation,the ascending aorta is mildly dialted,there is a trace pericardial effusion. US ECHO: 12/08/18 Study quality: Technically difficult. LV chamber size is normal. LV wall thickness is mild to moderately increased. There is normal global systolic function and contractility. The estimated left ventricle ejection fraction is 55-60% (normal). Normal left atrial pressure with Grade I diastolic dysfunction. There is mild aortic regurgitation. There is mild mitral regurgitation. There is mild to moderate tricuspid regurgitation. There is mild pulmonary hypertension. Estimated RVSP is 48 mmHg. Had ECHO done in 12/08/18 showed normal global systolic function , EF 55-60% , Grade I diastolic dysfunction , mild aortic regurgitation , mild mitral regurgitation , mild to moderate tricuspid regurgitation , mild pulmonary hypertension . Echo 03/03/2017 The LV size is normal. There is moderate concentric LV hypertrophy. Overall LVSF id normal with an EF between 65-70%. The LVEDP is elevated. The left atrium is mildly dilated. Aortic valve is trileaflet and is mildly thickened. There is mild to moderate aortic regurgtitation. Mild mitral regurgitation is present. Mild thickening of the anterior mitral valve leaflet. Mild to moderate tricuspid regurgitation present. The right ventricular systolic pressure as measured by doppler is 37.9 mmHg. Mild pulmonic valve regurgitation. The aortic root and ascending arota are dilated measuring up to 4.0 cm Sleep study 01/19/2019 Patient underwent a onenight home sleep test (with respiratory effort belt) and by behavioral criteria, slept for approximately 6.1 hours, with a sleep latency of 9 minutes and a sleep efficiency of 86.3%. Moderate sleep disordered breathing (AHI=27) is noted based on a 4% hypopnea desaturation criteria. The patient slept supine 21.8% of the night based on valid recording time of 6.06 hours and is 1.6 times as likely to have apneas/ hypopneas when supine. The apneas/hypopneas are accompanited by mild oxygen desaturation (percent time below 90% SpO2:7.1% Min SpO2:7.1%. Min SpO2:81.2%). The average desaturation across all sleep disordered breathing events is 4.2%. Snoring ovvurs for 38.8% (30 dB) of the study, 14.4% is very loud. The mean pulse rate is 70 BPM, with infrequent pulse rate variability (30 events with >=6 BPM increase/decrease per hour) Echo 03/03/2017 The LV size is normal. There is moderate concentric LV hypertrophy. Overall LVSF id normal with an EF between 65-70%. The LVEDP is elevated. The left atrium is mildly dilated. Aortic valve is trileaflet and is mildly thickened. There is mild to moderate aortic regurgtitation. Mild mitral regurgitation is present. Mild thickening of the anterior mitral valve leaflet. Mild to moderate tricuspid regurgitation present. The right ventricular systolic pressure as measured by doppler is 37.9 mmHg. Mild pulmonic valve regurgitation. The aortic root and ascending arota are dilated measuring up to 4.0 cm Had treadmill nuclear stress test 11/04/20: Negative stress test for ischemia. Normal LV systolic function. Artifact noted. Exercise tolerance: Poor. Compared to last study in 05/10/12, there are no changes. LVEF >60% [place] stress 05/10/2012 Normal rest and pharmacologic stress myocardial perfusion. Normal LV size and systolic function [facility] 06/30/2006 Normal size left ventricle. LVSF is normal. Elevated left ventricular systolic and diastolic pressures post angiographically. 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 [facility] [place] [facility] 10/31/2021 11:26:41 05/01/2022 text/html 05/01/2022 cc: coronary artery disease 86 year-old white woman with history of coronary artery disease, aortic root dilatation, aortic valve regurgitation, hypertension, hyperlipidemia, diabetes mellitus, hepatic steatosis, ELISEO (noncompliant with oral device), ulcerative colitis, hiatal hernia, presents for follow-up with the chief complaints of coronary artery disease. She was last seen in our office 6 mo. ago, and since then she has been feeling better. She has symptoms of depression. Reports hemorrhoids with bleeding previously for which she has f/u with GI Dr. Kay. She was walking on treadmill daily for 15 min. Due to imbalance, needing cane now. She sleeps 10-12 hours a day with good sleep. She reports using her ELISEO oral device, not as much recently. Resumed oral device late August 2020, with less subsequent fatigue. Reports improving problems with finger cramping in both hands, better with hand exercises. She denied any chest pain, dyspnea, orthopnea, dizziness, palpitation, or syncope. Reports reduced exercise capacity and no exertional dyspnea with walking on treadmill. No edema. She is a former patient of Dr. Montez. Reports home SBP 120-160s/75 before AM meds. Patient reports feeling well overall. Patient is active, but is not exercising regularly. No chest pain. No arm pain. No neck pain. No nausea and vomiting. No diaphoresis. No shortness of breath at rest. No dyspnea on exertion. No fatigue.No orthopnea. No PND. No leg swelling. No palpitation. No dizziness. No syncope . No pre-syncope. No claudication. No major bleeding events. No side effects from medications. Complete ROS negative except as stated in the HPI and ROS. She is seeing GI med for loose stools and was started on sulfasalazine again for ulcerative colitis. History of coronary artery disease reported. No history of previous myocardial infarction. No history of heart failure. History of valvular heart disease reported. No known arrhythmia. Had ECHO 10/08/20: LV chamber size is normal, LV wall thickness is mildly increased, the estimated LVEF is 55-60%(normal), LV relaxation is impaired, there is mild aortic regurgitation, there is mild thickening of the mitral valve anterior leaflet, there is a dense posterior mitral annular calcification, there is mild mitral regurgitation, there is mild tricuspid regurgitation, there is mild pulmonic regurgitation, the ascending aorta is mildly dilated, there is a trace pericardial effusion. Had ECHO done in 12/08/18 showed LV wall thickness is mild to moderately increased, normal global systolic function , EF 55-60% , Grade I diastolic dysfunction, mild aortic regurgitation , mild mitral regurgitation , mild to moderate tricuspid regurgitation , mild pulmonary hypertension . Had Echo 03/03/2017 The LV size is normal. There is moderate concentric LV hypertrophy. Overall LVSF id normal with an EF between 65-70%. The LVEDP is elevated. The left atrium is mildly dilated. Aortic valve is trileaflet and is mildly thickened. There is mild to moderate aortic regurgitation. Mild mitral regurgitation is present. Mild thickening of the anterior mitral valve leaflet. Mild to moderate tricuspid regurgitation present. The right ventricular systolic pressure as measured by doppler is 37.9 mmHg. Mild pulmonic valve regurgitation. The aortic root and ascending aorta are dilated measuring up to 4.0 cm. Had treadmill nuclear stress test 11/04/20: Negative stress test for ischemia. Normal LV systolic function. Artifact noted. Exercise tolerance: Poor. Compared to last study in 05/10/12, there are no changes. LVEF >60% Had [place] stress 05/10/2012: Normal rest and pharmacologic stress myocardial perfusion. Normal LV size and systolic function. Had [facility] 06/30/2006 Normal size left ventricle. LVSF is normal. Elevated left ventricular systolic and diastolic pressures post angiographically. Mild ectasia in the right coronary artery, and 20-30% disease in the proximal segment. 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 XR chest 05/09/2012 No acute findings. Reports increased daytime somnolence and fatigue. Results from this visit, or from the past: [id number] NA 140 K 3.7 CL 105 BUN 32 CR 0.90 GL 140 MAG 1.7 CA 9.2 TSH-0.36 [id number] electrocardiogram [id number], serum or plasma : Na 139,K 4.2,Cl 105,CO2 25,GLU 92,BUN 23,Cr 0.80. 12/28/20:WBC 5.9,RBC 3.54,HGB 10.5,HCT 32.1,PLT 290 Had 12/28/20: K 4.2, Cr 0.8, hgb A1C 5.6%, TSH 0.6, hgb 10.5 09/21/20:Na 143,K 4.2,Cl 106,Co2 27,Glu 111,Bun 19,Cr 0.9,AST 18,ALT 10, Mg 1.7, TSH 0.72 09/21/20:TC 128,TG 107,HDL 52,LDL 55. 09/21/20:WBC 6.6,RBC 3.97,HGB 10.7,HCT 33.3,PLT 316. 06/14/2020: Na 141,K 4.4,Cl 106,Co2 27,Glucose 91,BUN 24,Creati 0.9,Ca 9.9,%A1c 6.1 06/14/2020: WBC 6.4,RBC 3.85,HGB 11.0,HCT 34.2,PLT 315 02/12/2020 : Na 142,K 4.5,Cl 106,Co2 27,Glucose 72,BUN 18,Creati 0.9.Ca 9.8,AST 19,ALT 9,Alkaline phosphatase 48,%A1c 6.1 02/12/2020 TSH 1.040 02/12/2020 : Cholesterol 141,Triglycerides 131,HDl 56,LDL 59 CMP 07/08/2019 NA 138 K 4.3 CH 103 CO2 25 GL 93 BUN 19 CR 0.8 CA 9.5 AST 21 ALT 10 ALK PH 47 HGA1C 6.2 07-08-2019 TSH 1.050 LIPID 07/08/2019 TR 109 CH 132 HDL 58 LDL 52 BMP 01/20/2019 NA 140 K 4.3 CH 105 CO2 27 GL 188 BUN 25 CR 0.8 CA 9.3 MG 1.7 CMP 12/24/2018 NA 145 K 4.5 CH 108 CO2 25 GL 111 BUN 22 CR 0.7 CA 9.4 AST 16 ALT 11 ALK PH 51 HGA1C 6.5 TSH 12/24/2018 0.96 LIPID 12/24/2018 TR 125 CH 153 HDL 60 LDL 68 CMP 09/24/2018 NA 140 K 3.7 CH 105 CO2 25 GL 90 BUN 21 CR 0.7 CA 9.2 HGA1C 6.1 Vitamin D 27 CBC 09/24/2018 WBC 5.4 RBC 3.71 HGB 11.2 HCT 33.9 PLT 285 LIPID 06/17/2018 TR 95 CH 143 HDL 62 LDL 62 TSH 0.57 TSH 12/06/2017 1.41 hemoglobin A1c, QN, blood 05-15-2017 HGA1C 6.1 09/13/2020 EKG ; NSR, IRBBB, Low voltage in chest leads ,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 03-21-2019 ekg: NSR, Incomplete rbbb low voltage , chest leads. EKG 11/22/18 NSR, incomplete RBBB,,Low voltage in chest leads 11/04/20 TDM Negative stress test for ischemia. Normal LV systolic function. Artifact noted. Exercise tolerance: Poor. Compared to last study in 05/10/12, there are no changes. LVEF >60% ECHO 10/08/20:LV chamber size is normal,LV wall thickness is mildly increased,the estimated LVEF is 55-60%(normal),LV relaxation is impaired,there is mild aortic regurgitation,there is mild thickening of the mitral valve anterior leaflet,there is a dense posterior mitral annular calcification,there is mild mitral regurgitation,there is mild tricuspid regurgitation,there is mild pulmonic regurgitation,the ascending aorta is mildly dialted,there is a trace pericardial effusion. US ECHO: 12/08/18 Study quality: Technically difficult. LV chamber size is normal. LV wall thickness is mild to moderately increased. There is normal global systolic function and contractility. The estimated left ventricle ejection fraction is 55-60% (normal). Normal left atrial pressure with Grade I diastolic dysfunction. There is mild aortic regurgitation. There is mild mitral regurgitation. There is mild to moderate tricuspid regurgitation. There is mild pulmonary hypertension. Estimated RVSP is 48 mmHg. Had ECHO done in 12/08/18 showed normal global systolic function , EF 55-60% , Grade I diastolic dysfunction , mild aortic regurgitation , mild mitral regurgitation , mild to moderate tricuspid regurgitation , mild pulmonary hypertension . Echo 03/03/2017 The LV size is normal. There is moderate concentric LV hypertrophy. Overall LVSF id normal with an EF between 65-70%. The LVEDP is elevated. The left atrium is mildly dilated. Aortic valve is trileaflet and is mildly thickened. There is mild to moderate aortic regurgtitation. Mild mitral regurgitation is present. Mild thickening of the anterior mitral valve leaflet. Mild to moderate tricuspid regurgitation present. The right ventricular systolic pressure as measured by doppler is 37.9 mmHg. Mild pulmonic valve regurgitation. The aortic root and ascending arota are dilated measuring up to 4.0 cm Sleep study 01/19/2019 Patient underwent a onenight home sleep test (with respiratory effort belt) and by behavioral criteria, slept for approximately 6.1 hours, with a sleep latency of 9 minutes and a sleep efficiency of 86.3%. Moderate sleep disordered breathing (AHI=27) is noted based on a 4% hypopnea desaturation criteria. The patient slept supine 21.8% of the night based on valid recording time of 6.06 hours and is 1.6 times as likely to have apneas/ hypopneas when supine. The apneas/hypopneas are accompanited by mild oxygen desaturation (percent time below 90% SpO2:7.1% Min SpO2:7.1%. Min SpO2:81.2%). The average desaturation across all sleep disordered breathing events is 4.2%. Snoring ovvurs for 38.8% (30 dB) of the study, 14.4% is very loud. The mean pulse rate is 70 BPM, with infrequent pulse rate variability (30 events with >=6 BPM increase/decrease per hour) Echo 03/03/2017 The LV size is normal. There is moderate concentric LV hypertrophy. Overall LVSF id normal with an EF between 65-70%. The LVEDP is elevated. The left atrium is mildly dilated. Aortic valve is trileaflet and is mildly thickened. There is mild to moderate aortic regurgtitation. Mild mitral regurgitation is present. Mild thickening of the anterior mitral valve leaflet. Mild to moderate tricuspid regurgitation present. The right ventricular systolic pressure as measured by doppler is 37.9 mmHg. Mild pulmonic valve regurgitation. The aortic root and ascending arota are dilated measuring up to 4.0 cm Had treadmill nuclear stress test 11/04/20: Negative stress test for ischemia. Normal LV systolic function. Artifact noted. Exercise tolerance: Poor. Compared to last study in 05/10/12, there are no changes. LVEF >60% [place] stress 05/10/2012 Normal rest and pharmacologic stress myocardial perfusion. Normal LV size and systolic function [facility] 06/30/2006 Normal size left ventricle. LVSF is normal. Elevated left ventricular systolic and diastolic pressures post angiographically. 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 Milind Guillen [place], [place] - [facility] 05/01/2022 10:37:28 07/10/2022 text/html 07/10/2022 cc: coronary artery disease 86 year-old white woman with history of coronary artery disease, aortic root dilatation, aortic valve regurgitation, hypertension, hyperlipidemia, diabetes mellitus, hepatic steatosis, ELISEO (noncompliant with oral device), ulcerative colitis, hiatal hernia, presents for follow-up with the chief complaints of coronary artery disease. She reports frequent falls 07/2022 without syncope or dizziness for which she was seen at [facility] 05/2022. She is bleeding with internal hemorrhoids and UC, seeing GI. She was last seen in our office 2 mo. ago, and since then she has been feeling worse overall. She has symptoms of depression. Reports hemorrhoids with bleeding previously for which she has f/u with GI Dr. Kay. She was walking on treadmill daily for 15 min. Due to imbalance, needing cane now. She sleeps 10-12 hours a day with good sleep. She reports using her ELISEO oral device, not as much recently. Resumed oral device late August 2020, with less subsequent fatigue. Reports improving problems with finger cramping in both hands, better with hand exercises. She denied any chest pain, dyspnea, orthopnea, dizziness, palpitation, or syncope. Reports reduced exercise capacity and no exertional dyspnea with walking on treadmill. No edema. She is a former patient of Dr. Montez. Reports home SBP 120-160s/75 before AM meds. Patient reports feeling well overall. Patient is active, but is not exercising regularly. No chest pain. No arm pain. No neck pain. No nausea and vomiting. No diaphoresis. No shortness of breath at rest. No dyspnea on exertion. No fatigue.No orthopnea. No PND. No leg swelling. No palpitation. No dizziness. No syncope . No pre-syncope. No claudication. No major bleeding events. No side effects from medications. Complete ROS negative except as stated in the HPI and ROS. She is seeing GI med for loose stools and was started on sulfasalazine again for ulcerative colitis. History of coronary artery disease reported. No history of previous myocardial infarction. No history of heart failure. History of valvular heart disease reported. No known arrhythmia. Had ECHO 10/08/20: LV chamber size is normal, LV wall thickness is mildly increased, the estimated LVEF is 55-60%(normal), LV relaxation is impaired, there is mild aortic regurgitation, there is mild thickening of the mitral valve anterior leaflet, there is a dense posterior mitral annular calcification, there is mild mitral regurgitation, there is mild tricuspid regurgitation, there is mild pulmonic regurgitation, the ascending aorta is mildly dilated, there is a trace pericardial effusion. Had ECHO done in 12/08/18 showed LV wall thickness is mild to moderately increased, normal global systolic function , EF 55-60% , Grade I diastolic dysfunction, mild aortic regurgitation , mild mitral regurgitation , mild to moderate tricuspid regurgitation , mild pulmonary hypertension . Had Echo 03/03/2017 The LV size is normal. There is moderate concentric LV hypertrophy. Overall LVSF id normal with an EF between 65-70%. The LVEDP is elevated. The left atrium is mildly dilated. Aortic valve is trileaflet and is mildly thickened. There is mild to moderate aortic regurgitation. Mild mitral regurgitation is present. Mild thickening of the anterior mitral valve leaflet. Mild to moderate tricuspid regurgitation present. The right ventricular systolic pressure as measured by doppler is 37.9 mmHg. Mild pulmonic valve regurgitation. The aortic root and ascending aorta are dilated measuring up to 4.0 cm. Had treadmill nuclear stress test 11/04/20: Negative stress test for ischemia. Normal LV systolic function. Artifact noted. Exercise tolerance: Poor. Compared to last study in 05/10/12, there are no changes. LVEF >60% Had [place] stress 05/10/2012: Normal rest and pharmacologic stress myocardial perfusion. Normal LV size and systolic function. Had [facility] 06/30/2006 Normal size left ventricle. LVSF is normal. Elevated left ventricular systolic and diastolic pressures post angiographically. Mild ectasia in the right coronary artery, and 20-30% disease in the proximal segment. 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 XR chest 05/09/2012 No acute findings. Reports increased daytime somnolence and fatigue. Results from this visit, or from the past: CMP, serum or plasma 2 CMP-NA 136 K 4.5 BUN 25 CR 1.00 GL 97 MAG 1.5 CA 9.8 LIPID-CHOL 140 TRIG 58 HDL 75 LDL 53 TSH-0.51 CBC- WBC 5.5 RBC 3.56 HGB 9.9 HCT 30.3 PLT 326 [id number] NA 140 K 3.7 CL 105 BUN 32 CR 0.90 GL 140 MAG 1.7 CA 9.2 TSH-0.36 [id number] electrocardiogram [id number], serum or plasma : Na 139,K 4.2,Cl 105,CO2 25,GLU 92,BUN 23,Cr 0.80. 12/28/20:WBC 5.9,RBC 3.54,HGB 10.5,HCT 32.1,PLT 290 Had 12/28/20: K 4.2, Cr 0.8, hgb A1C 5.6%, TSH 0.6, hgb 10.5 09/21/20:Na 143,K 4.2,Cl 106,Co2 27,Glu 111,Bun 19,Cr 0.9,AST 18,ALT 10, Mg 1.7, TSH 0.72 09/21/20:TC 128,TG 107,HDL 52,LDL 55. 09/21/20:WBC 6.6,RBC 3.97,HGB 10.7,HCT 33.3,PLT 316. 06/14/2020: Na 141,K 4.4,Cl 106,Co2 27,Glucose 91,BUN 24,Creati 0.9,Ca 9.9,%A1c 6.1 06/14/2020: WBC 6.4,RBC 3.85,HGB 11.0,HCT 34.2,PLT 315 02/12/2020 : Na 142,K 4.5,Cl 106,Co2 27,Glucose 72,BUN 18,Creati 0.9.Ca 9.8,AST 19,ALT 9,Alkaline phosphatase 48,%A1c 6.1 02/12/2020 TSH 1.040 02/12/2020 : Cholesterol 141,Triglycerides 131,HDl 56,LDL 59 CMP 07/08/2019 NA 138 K 4.3 CH 103 CO2 25 GL 93 BUN 19 CR 0.8 CA 9.5 AST 21 ALT 10 ALK PH 47 HGA1C 6.2 07-08-2019 TSH 1.050 LIPID 07/08/2019 TR 109 CH 132 HDL 58 LDL 52 BMP 01/20/2019 NA 140 K 4.3 CH 105 CO2 27 GL 188 BUN 25 CR 0.8 CA 9.3 MG 1.7 CMP 12/24/2018 NA 145 K 4.5 CH 108 CO2 25 GL 111 BUN 22 CR 0.7 CA 9.4 AST 16 ALT 11 ALK PH 51 HGA1C 6.5 TSH 12/24/2018 0.96 LIPID 12/24/2018 TR 125 CH 153 HDL 60 LDL 68 CMP 09/24/2018 NA 140 K 3.7 CH 105 CO2 25 GL 90 BUN 21 CR 0.7 CA 9.2 HGA1C 6.1 Vitamin D 27 CBC 09/24/2018 WBC 5.4 RBC 3.71 HGB 11.2 HCT 33.9 PLT 285 LIPID 06/17/2018 TR 95 CH 143 HDL 62 LDL 62 TSH 0.57 TSH 12/06/2017 1.41 hemoglobin A1c, QN, blood 05-15-2017 HGA1C 6.1 electrocardiogram EKG: NSR, incomplete RBBB, low voltage, chest leads, 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 03-21-2019 ekg: NSR, Incomplete rbbb low voltage , chest leads. EKG 11/22/18 NSR, incomplete RBBB,,Low voltage in chest leads 11/04/20 TDM Negative stress test for ischemia. Normal LV systolic function. Artifact noted. Exercise tolerance: Poor. Compared to last study in 05/10/12, there are no changes. LVEF >60% ECHO 10/08/20:LV chamber size is normal,LV wall thickness is mildly increased,the estimated LVEF is 55-60%(normal),LV relaxation is impaired,there is mild aortic regurgitation,there is mild thickening of the mitral valve anterior leaflet,there is a dense posterior mitral annular calcification,there is mild mitral regurgitation,there is mild tricuspid regurgitation,there is mild pulmonic regurgitation,the ascending aorta is mildly dialted,there is a trace pericardial effusion. US ECHO: 12/08/18 Study quality: Technically difficult. LV chamber size is normal. LV wall thickness is mild to moderately increased. There is normal global systolic function and contractility. The estimated left ventricle ejection fraction is 55-60% (normal). Normal left atrial pressure with Grade I diastolic dysfunction. There is mild aortic regurgitation. There is mild mitral regurgitation. There is mild to moderate tricuspid regurgitation. There is mild pulmonary hypertension. Estimated RVSP is 48 mmHg. Had ECHO done in 12/08/18 showed normal global systolic function , EF 55-60% , Grade I diastolic dysfunction , mild aortic regurgitation , mild mitral regurgitation , mild to moderate tricuspid regurgitation , mild pulmonary hypertension . Echo 03/03/2017 The LV size is normal. There is moderate concentric LV hypertrophy. Overall LVSF id normal with an EF between 65-70%. The LVEDP is elevated. The left atrium is mildly dilated. Aortic valve is trileaflet and is mildly thickened. There is mild to moderate aortic regurgtitation. Mild mitral regurgitation is present. Mild thickening of the anterior mitral valve leaflet. Mild to moderate tricuspid regurgitation present. The right ventricular systolic pressure as measured by doppler is 37.9 mmHg. Mild pulmonic valve regurgitation. The aortic root and ascending arota are dilated measuring up to 4.0 cm Sleep study 01/19/2019 Patient underwent a onenight home sleep test (with respiratory effort belt) and by behavioral criteria, slept for approximately 6.1 hours, with a sleep latency of 9 minutes and a sleep efficiency of 86.3%. Moderate sleep disordered breathing (AHI=27) is noted based on a 4% hypopnea desaturation criteria. The patient slept supine 21.8% of the night based on valid recording time of 6.06 hours and is 1.6 times as likely to have apneas/ hypopneas when supine. The apneas/hypopneas are accompanited by mild oxygen desaturation (percent time below 90% SpO2:7.1% Min SpO2:7.1%. Min SpO2:81.2%). The average desaturation across all sleep disordered breathing events is 4.2%. Snoring ovvurs for 38.8% (30 dB) of the study, 14.4% is very loud. The mean pulse rate is 70 BPM, with infrequent pulse rate variability (30 events with >=6 BPM increase/decrease per hour) Echo 03/03/2017 The LV size is normal. There is moderate concentric LV hypertrophy. Overall LVSF id normal with an EF between 65-70%. The LVEDP is elevated. The left atrium is mildly dilated. Aortic valve is trileaflet and is mildly thickened. There is mild to moderate aortic regurgtitation. Mild mitral regurgitation is present. Mild thickening of the anterior mitral valve leaflet. Mild to moderate tricuspid regurgitation present. The right ventricular systolic pressure as measured by doppler is 37.9 mmHg. Mild pulmonic valve regurgitation. The aortic root and ascending arota are dilated measuring up to 4.0 cm Had treadmill nuclear stress test 11/04/20: Negative stress test for ischemia. Normal LV systolic function. Artifact noted. Exercise tolerance: Poor. Compared to last study in 05/10/12, there are no changes. LVEF >60% [place] stress 05/10/2012 Normal rest and pharmacologic stress myocardial perfusion. Normal LV size and systolic function [facility] 06/30/2006 Normal size left ventricle. LVSF is normal. Elevated left ventricular systolic and diastolic pressures post angiographically. 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 Milind Guillen [facility] [place] - [facility] 07/10/2022 13:07:58 10/09/2022 text/html 10/09/2022 cc: coronary artery disease 86 year-old white woman with history of coronary artery disease, aortic root dilatation, aortic valve regurgitation, hypertension, hyperlipidemia, diabetes mellitus, hepatic steatosis, ELISEO (noncompliant with oral device), ulcerative colitis, hiatal hernia, presents for follow-up with the chief complaints of coronary artery disease. Previously, she reported frequent falls 07/2022 without syncope or dizziness for which she was seen at [facility] 05/2022. She is having bleeding with internal hemorrhoids and UC, seeing GI. She was last seen in our office 3 mo. ago, and since then she has been feeling worse overall. She has symptoms of depression. Reports hemorrhoids with bleeding previously for which she has f/u with GI Dr. Kay. She was walking on treadmill daily for 15 min. Due to imbalance, needing cane now. She sleeps 10-12 hours a day with good sleep. She reports using her ELISEO oral device, not as much recently. Resumed oral device late August 2020, with less subsequent fatigue. Reports improving problems with finger cramping in both hands, better with hand exercises. She denied any chest pain, dyspnea, orthopnea, dizziness, palpitation, or syncope. Reports reduced exercise capacity and no exertional dyspnea with walking on treadmill. No edema. She is a former patient of Dr. Montez. Reports home SBP 120-160s/75 before AM meds. Patient reports feeling well overall. Patient is active, but is not exercising regularly. No chest pain. No arm pain. No neck pain. No nausea and vomiting. No diaphoresis. No shortness of breath at rest. No dyspnea on exertion. No fatigue.No orthopnea. No PND. No leg swelling. No palpitation. No dizziness. No syncope . No pre-syncope. No claudication. No major bleeding events. No side effects from medications. Complete ROS negative except as stated in the HPI and ROS. She is seeing GI med for loose stools and was started on sulfasalazine again for ulcerative colitis. History of coronary artery disease reported. No history of previous myocardial infarction. No history of heart failure. History of valvular heart disease reported. No known arrhythmia. Had ECHO 07/27/22: LV chamber size is normal. LV wall thickness is mildly increased. The estimated left ventricle ejection fraction is 55-60% (normal). LV relaxation is impaired. The aortic valve is mildly calcified. There is mild aortic root calcification. There is mild aortic regurgitation. There is a dense posterior mitral annular calcification. There is mild mitral regurgitation. There is mild triscupid regurgitation. Mild elevation of estimated RV systolic pressure. Estimated RVSP systolic pressure is 45 mmHG. There is mild pulmonic regurgitation. There is a trace pericardial effusion. Had ECHO 10/08/20: LV chamber size is normal, LV wall thickness is mildly increased, the estimated LVEF is 55-60%(normal), LV relaxation is impaired, there is mild aortic regurgitation, there is mild thickening of the mitral valve anterior leaflet, there is a dense posterior mitral annular calcification, there is mild mitral regurgitation, there is mild tricuspid regurgitation, there is mild pulmonic regurgitation, the ascending aorta is mildly dilated, there is a trace pericardial effusion. Had ECHO done in 12/08/18 showed LV wall thickness is mild to moderately increased, normal global systolic function , EF 55-60% , Grade I diastolic dysfunction, mild aortic regurgitation , mild mitral regurgitation , mild to moderate tricuspid regurgitation , mild pulmonary hypertension . Had Echo 03/03/2017 The LV size is normal. There is moderate concentric LV hypertrophy. Overall LVSF id normal with an EF between 65-70%. The LVEDP is elevated. The left atrium is mildly dilated. Aortic valve is trileaflet and is mildly thickened. There is mild to moderate aortic regurgitation. Mild mitral regurgitation is present. Mild thickening of the anterior mitral valve leaflet. Mild to moderate tricuspid regurgitation present. The right ventricular systolic pressure as measured by doppler is 37.9 mmHg. Mild pulmonic valve regurgitation. The aortic root and ascending aorta are dilated measuring up to 4.0 cm. Had treadmill nuclear stress test 11/04/20: Negative stress test for ischemia. Normal LV systolic function. Artifact noted. Exercise tolerance: Poor. Compared to last study in 05/10/12, there are no changes. LVEF >60% Had [place] stress 05/10/2012: Normal rest and pharmacologic stress myocardial perfusion. Normal LV size and systolic function. Had [facility] 06/30/2006 Normal size left ventricle. LVSF is normal. Elevated left ventricular systolic and diastolic pressures post angiographically. Mild ectasia in the right coronary artery, and 20-30% disease in the proximal segment. 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 XR chest 05/09/2012 No acute findings. Reports increased daytime somnolence and fatigue. Results from this visit, or from the past: Had 09/26/22: TSH 0.96, LDL 68, K 4.1, Cr 0.7, Had 3BMP-NA 140 k 4.4 bun 19 cr 0.80 gl 86 CA 9.7MAG-1.6CBC-WBC 7.1 HGB 10.3 HCT 31.5 PLT 331 RBC 3.63 CMP, serum or plasma / 2 CMP-NA 136 K 4.5 BUN 25 CR 1.00 GL 97 MAG 1.5 CA 9.8 LIPID-CHOL 140 TRIG 58 HDL 75 LDL 53 TSH-0.51 CBC- WBC 5.5 RBC 3.56 HGB 9.9 HCT 30.3 PLT 326 [id number] NA 140 K 3.7 CL 105 BUN 32 CR 0.90 GL 140 MAG 1.7 CA 9.2 TSH-0.36 [id number] electrocardiogram [id number], serum or plasma : Na 139,K 4.2,Cl 105,CO2 25,GLU 92,BUN 23,Cr 0.80. 12/28/20:WBC 5.9,RBC 3.54,HGB 10.5,HCT 32.1,PLT 290 Had 12/28/20: K 4.2, Cr 0.8, hgb A1C 5.6%, TSH 0.6, hgb 10.5 04/24/21:Na 143,K 4.2,Cl 106,Co2 27,Glu 111,Bun 19,Cr 0.9,AST 18,ALT 10, Mg 1.7, TSH 0.72 09/21/20:TC 128,TG 107,HDL 52,LDL 55. 09/21/20:WBC 6.6,RBC 3.97,HGB 10.7,HCT 33.3,PLT 316. 06/14/2020: Na 141,K 4.4,Cl 106,Co2 27,Glucose 91,BUN 24,Creati 0.9,Ca 9.9,%A1c 6.1 06/14/2020: WBC 6.4,RBC 3.85,HGB 11.0,HCT 34.2,PLT 315 02/12/2020 : Na 142,K 4.5,Cl 106,Co2 27,Glucose 72,BUN 18,Creati 0.9.Ca 9.8,AST 19,ALT 9,Alkaline phosphatase 48,%A1c 6.1 02/12/2020 TSH 1.040 02/12/2020 : Cholesterol 141,Triglycerides 131,HDl 56,LDL 59 CMP 07/08/2019 NA 138 K 4.3 CH 103 CO2 25 GL 93 BUN 19 CR 0.8 CA 9.5 AST 21 ALT 10 ALK PH 47 HGA1C 6.2 07-08-2019 TSH 1.050 LIPID 07/08/2019 TR 109 CH 132 HDL 58 LDL 52 BMP 01/20/2019 NA 140 K 4.3 CH 105 CO2 27 GL 188 BUN 25 CR 0.8 CA 9.3 MG 1.7 CMP 12/24/2018 NA 145 K 4.5 CH 108 CO2 25 GL 111 BUN 22 CR 0.7 CA 9.4 AST 16 ALT 11 ALK PH 51 HGA1C 6.5 TSH 12/24/2018 0.96 LIPID 12/24/2018 TR 125 CH 153 HDL 60 LDL 68 CMP 09/24/2018 NA 140 K 3.7 CH 105 CO2 25 GL 90 BUN 21 CR 0.7 CA 9.2 HGA1C 6.1 Vitamin D 27 CBC 09/24/2018 WBC 5.4 RBC 3.71 HGB 11.2 HCT 33.9 PLT 285 LIPID 06/17/2018 TR 95 CH 143 HDL 62 LDL 62 TSH 0.57 TSH 12/06/2017 1.41 hemoglobin A1c, QN, blood 12-16-2017 HGA1C 6.1 electrocardiogram EKG: NSR, incomplete RBBB, low voltage, chest leads, 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 03-21-2019 ekg: NSR, Incomplete rbbb low voltage , chest leads. EKG 11/22/18 NSR, incomplete RBBB,,Low voltage in chest leads 11/04/20 TDM Negative stress test for ischemia. Normal LV systolic function. Artifact noted. Exercise tolerance: Poor. Compared to last study in 05/10/12, there are no changes. LVEF >60% ECHO 10/08/20:LV chamber size is normal,LV wall thickness is mildly increased,the estimated LVEF is 55-60%(normal),LV relaxation is impaired,there is mild aortic regurgitation,there is mild thickening of the mitral valve anterior leaflet,there is a dense posterior mitral annular calcification,there is mild mitral regurgitation,there is mild tricuspid regurgitation,there is mild pulmonic regurgitation,the ascending aorta is mildly dialted,there is a trace pericardial effusion. US ECHO: 12/08/18 Study quality: Technically difficult. LV chamber size is normal. LV wall thickness is mild to moderately increased. There is normal global systolic function and contractility. The estimated left ventricle ejection fraction is 55-60% (normal). Normal left atrial pressure with Grade I diastolic dysfunction. There is mild aortic regurgitation. There is mild mitral regurgitation. There is mild to moderate tricuspid regurgitation. There is mild pulmonary hypertension. Estimated RVSP is 48 mmHg. Had ECHO done in 12/08/18 showed normal global systolic function , EF 55-60% , Grade I diastolic dysfunction , mild aortic regurgitation , mild mitral regurgitation , mild to moderate tricuspid regurgitation , mild pulmonary hypertension . Echo 03/03/2017 The LV size is normal. There is moderate concentric LV hypertrophy. Overall LVSF id normal with an EF between 65-70%. The LVEDP is elevated. The left atrium is mildly dilated. Aortic valve is trileaflet and is mildly thickened. There is mild to moderate aortic regurgtitation. Mild mitral regurgitation is present. Mild thickening of the anterior mitral valve leaflet. Mild to moderate tricuspid regurgitation present. The right ventricular systolic pressure as measured by doppler is 37.9 mmHg. Mild pulmonic valve regurgitation. The aortic root and ascending arota are dilated measuring up to 4.0 cm Sleep study 01/19/2019 Patient underwent a onenight home sleep test (with respiratory effort belt) and by behavioral criteria, slept for approximately 6.1 hours, with a sleep latency of 9 minutes and a sleep efficiency of 86.3%. Moderate sleep disordered breathing (AHI=27) is noted based on a 4% hypopnea desaturation criteria. The patient slept supine 21.8% of the night based on valid recording time of 6.06 hours and is 1.6 times as likely to have apneas/ hypopneas when supine. The apneas/hypopneas are accompanited by mild oxygen desaturation (percent time below 90% SpO2:7.1% Min SpO2:7.1%. Min SpO2:81.2%). The average desaturation across all sleep disordered breathing events is 4.2%. Snoring ovvurs for 38.8% (30 dB) of the study, 14.4% is very loud. The mean pulse rate is 70 BPM, with infrequent pulse rate variability (30 events with >=6 BPM increase/decrease per hour) Echo 03/03/2017 The LV size is normal. There is moderate concentric LV hypertrophy. Overall LVSF id normal with an EF between 65-70%. The LVEDP is elevated. The left atrium is mildly dilated. Aortic valve is trileaflet and is mildly thickened. There is mild to moderate aortic regurgtitation. Mild mitral regurgitation is present. Mild thickening of the anterior mitral valve leaflet. Mild to moderate tricuspid regurgitation present. The right ventricular systolic pressure as measured by doppler is 37.9 mmHg. Mild pulmonic valve regurgitation. The aortic root and ascending arota are dilated measuring up to 4.0 cm Had treadmill nuclear stress test 11/04/20: Negative stress test for ischemia. Normal LV systolic function. Artifact noted. Exercise tolerance: Poor. Compared to last study in 05/10/12, there are no changes. LVEF >60% [place] stress 05/10/2012 Normal rest and pharmacologic stress myocardial perfusion. Normal LV size and systolic function [facility] 06/30/2006 Normal size left ventricle. LVSF is normal. Elevated left ventricular systolic and diastolic pressures post angiographically. 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 Milind Guillen [facility] [place] [facility] 10/09/2022 11:34:54 OBGyn Episode No OBEpisode recorded.
--- OUTSIDE RECORDS SUMMARY | 2025-03-14 14:37 | XMS_ITS | Clinical Summary ---
Author Organization [facility] Address [facility] [place] [address] Care Team Providers Care Floorworker Lasting Name Role Phone Unavailable Primary Care Provider [...] - 1-dose 75+ series) 10/16/2011 COVID-19 Vaccine ( - 2023-2 5 season) 2025 Influenza Adult (#1) 2025 Meningococcal B Vaccine Aged Out No l onger eligible based on patient's age to complete this topic Meningococcal Vaccine Aged Out No philomena jeff eligible based on patient's age to complete this topic RSV Immunizations Under 20 Months Aged Out No longer eligible based on patient's age to complete this topic
== END 2025-03-14 12:52 | disposition home or self-care (01) ==
PROVIDERS: PCP Nurse Practitioner Family; Visit Provider Nurse Practitioner Family
DX: E04.2 Nontoxic multinodular goiter (principal)
CPT/HCPCS: 10005; 10006; 88172; 88173; 88177; 88305

== ENCOUNTER 2025-03-16 07:51 | Outpatient (CLI) | payer MEDICARE, SELFPAY ==
--- NOTE | ~2025-03-16 | US_ITS ---
US abdomen limited Indication: D73.89 - Other diseases of spleen Comparison: Comparison 03/01/2025. Technique: Singer-scale and color Doppler images were obtained. Findings: The spleen demonstrate a complex solid-appearing splenic lesion with increased flow measuring 2.3 x 2.4 cm. The spleen measures 8.1 cm. IMPRESSION: Splenic lesion detailed above incompletely evaluated. This may represent a hemangioma in the absence of previous neoplasm. If there is clinical concern for metastasis MRI suggested to evaluate otherwise 3 month follow-up recommended to assess stability Reviewed, dictated and finalized at location P. IMPRESSION: Splenic lesion detailed above incompletely evaluated. This may repr esent a hemangioma in the absence of previous neoplasm. If there is clinical co ncern for metastasis MRI suggested to evaluate otherwise 3 month follow-up kathia mmended to assess stability
--- OUTSIDE RECORDS SUMMARY | 2025-03-16 07:57 | XMS_ITS | Patient Health Record ---
Author Organization [facility] Address [address] [address] Care Team Providers Care Supervisor Respiratory Name Role Phone Zhen Kwongbbir Primary Care Provider [phone] Allergies Allergen (clinical drug ingredient) Drug/Non Drug [...] 7 days 06/02/2016 Not-Taking Cholecalciferol 1.25 MG (10914 UT) 1 tablet Orally Once a day Active sulfaSALAzine 500 MG 1 tablet Orally every 8 hrs Not-Taking Aspir-81 81 MG 1 tablet Orally Daily at bedtime Active FreeStyle Mally 14 Day [place] - as directed; Duration: 30 days Dx-E11.65 09/27/2020 Not-Taking Immunizations Vaccine Route Administration Date Status Comme [facility] Zoster IM Intramuscular 07/18/2018 Administered Shingr ix Vaccine Given at [facility] Zoster IM Intramuscular 11/22/2018 Administered Shingr ix (shingles) vaccine given at [facility] Pneumococcal polysaccharide PPV23 Unknown 06/01/2014 Pending Pneumococcal polysaccharide PPV23 IM Intramuscular 02/10/2018 Administered Vaccine gi regine at [facility] Pneumococcal polysaccharide PPV23 IM Intramuscular 02/10/2022 Administered Influenzal (split), seasonal, intermuscular,preserv ative free IM Intramuscular 02/19/2017 Administered FLUAD FLU QUADRIVALENT NO PRSV 0.5ML IM Intramuscular 02/10/2018 Administered [facility] Flu Vavccine lot#[id number] FLUAD FLU QUADRIVALENT NO PRSV 0.5ML IM Intramuscular 02/10/2019 Administered Patient had Flu Vaccine @ [facility] FLUAD FLU QUADRIVALENT NO PRSV 0.5ML IM Intramuscular 01/24/2020 Administered HIGH DOSE FLU VACCINE GIVEN @ [facility] LOT#[id number] [facility]#[id number] 5 FLUAD FLU QUADRIVALENT NO PRSV 0.5ML IM Intramuscular 02/28/2021 Administered Patient received High Dose Flu Vaccine @ [facility]#[id number] 5 Lot#[id number] FLUAD FLU QUADRIVALENT NO PRSV 0.5ML IM [...] Peripheral circulatory disorder associated with diabetes mellitus (815735286) Type 2 diabetes mellitus with other circulatory complications (E11.59) Active confirmed Problem Type 2 diabetes mellitus with other specified complication (E11.69) Active confirmed Problem Mixed hyperlipidemia (534731937) Mixed hyperlipidemia (E78.2) Active confirmed Problem Recurrent major depression in full remission (14709134) Major depressive disorder, recurrent, in full remission (F33.42) Active confirmed Problem COPD - Chronic obstructive pulmonary disease (72082523) COPD (chronic obstructive pulmonary disease) (J44.9) Active confirmed Problem Restless legs (55077832) RLS (restless legs syndrome) (G25.81) Active confirmed Problem Hemorrhage of rectum and anus (546431636) Rectal bleed (K62.5) Active confirmed Problem Anxiety (47764069) Anxiety (F41.9) Active confi rmed Problem Diabetes mellitus (95101460) Diabetes mellitus (E11.9) Active confirmed Problem Vitamin D deficiency (48994306) Vitamin D deficiency (E55.9) Active confirmed Problem Obstructive sleep apnea syndrome (03032170) ELISEO (obstructive sleep apnea) (G47.33) Active confirmed Problem Back pain (790801107) Back pain (M54.9) Active confirmed Problem Fall () Fall, initial encounter (W19.XXXA) Active confirmed Problem Atherosclerotic heart disease of [place] coronary artery without angina pectoris (313328590401359) Coronary artery disease involving [place] coronary artery of [place] heart without angina pectoris (I25.10) Active confirmed Problem Cardiomegaly (2970018) LVH (left ventricular hypertrophy) (I51.7) Active confirmed Problem Syncope (534489021) Syncope (R55) Active confir med Problem Anemia (757685648) Anemia, unspecified type (D64.9) Active confirmed Problem Microalbuminuria (116433306) Microalbuminuria (R80.9) Active confirmed Problem Weight loss (500150197) Weight loss (R63.4) Active confirmed Problem Depression (287417428) Depression (F32.9) Active confirmed Problem Thyroid nodule (545180612) Thyroid nodule (E04.1) Active confirmed Problem Microscopic hematuria (351654504) Microscopic hematuria (R31.29) Active confirmed Problem Neurologic disorder associated with type II diabetes mellitus (742783183) DM (diabetes mellitus) type II controlled, neurological manifestation (E11.49) Active confirmed Problem Ulcerative colitis (23179300) Ulcerative colitis (K51.90) Active confirmed Problem Pancreatic cyst (10077370) Pancreatic cyst (K86.2) Active confirmed Problem 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) Active confirmed Problem Adult health examination (320881186) Encounter for annual physical exam (Z00.00) Active confirmed Problem Recurrent major depression (disorder) (72915646) Major depressive disorder, recurrent episode, unspecified (F33.9) Active confirmed Problem Bleeding hemorrhoid (52232881) Bleeding hemorrhoid (K64.9) Active confirmed Problem Upper respiratory infection (65765572) Upper respiratory tract infection, unspecified type (J06.9) Active confirmed Problem Non-compliance (061158397) Non-compliance (Z91.199) Active confirmed Problem Aneurysm of ascending aorta (disorder) (779516174) Aneurysm of ascending aorta without rupture (I71.21) Active confirmed Problem Dilatation of aorta (64461332) Thoracic aortic ectasia (I77.810) Active confirmed Problem Essential hypertension (52361445) Essential hypertension (I10) Active confirmed Problem Esophageal reflux (152928429) Esophageal reflux (K21.9) Active confirmed Problem Benign neoplasm of colon (53026128) 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) Active confirmed Plan Of Treatment No Information Insurance Providers Payer Name Payer Address Payer Phone Subscriber Number Group Number Insured Name Patient Relationship to Insured Coverage Start Date Coverage End Date MEDICARE PART AB [address] [place] [phone] [id number] OMKAR YEUNG Self - patient is the insured [address] [facility] [employer] [address] [place], [place] [phone] [id number] OKMAR YEUNG Self - patient is the insured 1 Medical (General) History Medical History History ICD Code Hypertension(benign) Diabetes mellitus GERD(Gastroesophageal reflux disease) Hyperlipidemia Diarrhea Osteoarthritis Surgical History Surgery Date(Month/Year) Back Surgery ; Bladder Surgery ; Carpal Tunnel Surgery ; Gallbladder Removal ; Hysterectomy ; Hospitalization History Reason Date(Month/Year) see surgeries
--- OUTSIDE RECORDS SUMMARY | 2025-03-16 07:58 | XMS_ITS | Clinical Summary ---
Author Organization [facility] [employer] Address [address] [place] [address] Care Team Providers Care Coal Mine Inspector Name Role Phone Unavailable Primary Care Provider Unavailabl e Source Comments [facility] [employer],non-owned Affiliates and Associated Physician Practices is amultiple site organization consisting of ambulatory clinics and hospital sitesin [place], [place], [place] and [place]. This disclosure is being madepursuant to the Care Everywhere program and may not contain all information available regarding this patient. 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
--- OUTSIDE RECORDS SUMMARY | 2025-03-16 07:58 | XMS_ITS | Clinical Summary ---
Author Organization [facility] ([facility]3] at [facility] Address [address] [place] [address] Care Team Providers Care Director Of Assisted Living Name Role Phone Memo Montgomery MD Primary [...] on file Legal Sex Female 6:01 PM BORING MACHINE FEEDER Gender Identity Not on file Sexual Orientation [...] CDT HEMOGLOBIN A1C Routine 05/08/2023 8:18 AM BORING MACHINE FEEDER LIPID PANEL Routine 05/08/2023 8:18 AM BORING MACHINE FEEDER ALBUMIN CREATININE RATIO, URINE Routine 05/08/2023 8:11 AM BORING MACHINE FEEDER DEXA AXIAL SKELETON BONE DENSITY 1 OR [...] BLOOD ORDERABL ES Final Result [facility] DEMPSEY [address] [facility] [place] [address] * (ABNORMAL) Hemoglobin A1c (05/08/2023 8:18 AM BORING MACHINE FEEDER) Hgb A1C 6.1(H) 4.0 - 5.6 % [facility]ICE DEMPSEY Estimated Average Glucose 128 mg/dL [facility] DEMPSEY Comment: The ADA recommends reporting an estimated Average Glucose (eAG) with all Hemoglobin A1c results using the equation derived from a study of 507 normal and diabetic adults. Minority populations were underrepresented and children were not included. (Diabetes Care 31:9751-1935, 2008). The eAG is not equivalent to a fasting glucose. Blood 05/08/2023 8:18 AM BORING MACHINE FEEDER 05/08/2023 9:05 AM BORING MACHINE FEEDER us Antoinette Ingram [employer] LAB BLOOD ORDERABLES Final Res ult [facility]ICE [address] [facility] [place], [place] [id number] * Lipid panel (05/08/2023 8:18 AM BORING MACHINE FEEDER) Cholesterol 148 30 - 199 mg/dL VENICE [...] 2 [facility]ENICE DEMPSEY Blood 05/08/2023 8:18 AM BORING MACHINE FEEDER 05/08/2023 9:05 AM BORING MACHINE FEEDER us Antoinette Ingram [employer] [facility] BLOOD ORDERABLES Final Res ult [facility]ICE DEMPSEY [address] [facility] [place] [address] * Albumin Creatinine Ratio, Urine (05/08/2023 8:11 AM BORING MACHINE FEEDER) Albumin Ur 16.7 mg/L VENICE Comment: Interpretive Data No reference range established. Current interpretive data was last revised 2018. Creatinine Ur 176.0 mg/dL VENICE Comment: Interpretive Data No reference range established. Current interpretive data was last revised 2018. Albumin Creatinine Ratio, Ur 9 1 - 29 mg/g [facility] Urine 05/08/2023 8:11 AM BORING MACHINE FEEDER 05/08/2023 11:09 AM BORING MACHINE FEEDER us Antoinette Ingram NP LAB URINE ORDERABLES Final Res ult [facility] [address] [facility] [place] [address] * Dexa Axial Skeleton Bone Density 1 [...] Recently Relevant to Health Maintenance Insurance MEDICARE [facility] MEDICARE [facility] MEDICARE SUPPLEMENT MEDICARE [facility] Care Teams Director Of Assisted Living Relationship Specialty Start Date End Date Memo Montgomery MD PCP - General Family Medicine 03/16/24
--- OUTSIDE RECORDS SUMMARY | 2025-03-16 07:58 | XMS_ITS | Clinical Summary ---
Author Organization [facility] Address [facility] [place] [address] Care Team Providers Care Hardwood Floor Finisher Name Role Phone Unavailable Primary Care Provider [...]
== END 2025-03-16 07:52 | disposition home or self-care (01) ==
PROVIDERS: PCP Nurse Practitioner Family; Visit Provider Nurse Practitioner Family
DX: D73.89 Other diseases of spleen (principal); R15.9 Full incontinence of feces; D64.9 Anemia, unspecified; K59.00 Constipation, unspecified; R63.4 Abnormal weight loss; D73.4 Cyst of spleen
CPT/HCPCS: 76705